=== PATIENT | male | born 1955 | race Caucasian/White ===

== ENCOUNTER → 2020-09-27 18:46 | Outpatient (BNVA) | payer MEDICARE, OTHER, SELFPAY | PROVIDERS: Family Provider Family Medicine; PCP Family Medicine; Visit Provider Family Medicine | DX: Z20.828 Contact with and (suspected) exposure to other viral communicable diseases (principal) | CPT/HCPCS: 87635 ==

== ENCOUNTER → 2021-02-12 11:06 | Outpatient (BNVA) | payer MEDICARE, OTHER, SELFPAY | PROVIDERS: Family Provider Family Medicine; PCP Family Medicine; Visit Provider Family Medicine | DX: Z20.822 Contact with and (suspected) exposure to COVID-19 (principal) | CPT/HCPCS: 87635 ==

== ENCOUNTER → 2021-05-10 12:56 | Outpatient (BNVA) | payer MEDICARE, SELFPAY | PROVIDERS: Family Provider Family Medicine; PCP Family Medicine; Visit Provider Surgery | DX: Z20.822 Contact with and (suspected) exposure to COVID-19 (principal) | CPT/HCPCS: 87635 ==

== ENCOUNTER 2021-05-16 05:48 | Day surgery (SDC) | payer MEDICARE, SELFPAY ==
[2021-05-14 15:28] VITALS: BMI 21.3
[2021-05-16 06:11] VITALS: BP 130/86; PULSE 105; RESP 18; TEMP 36.9; O2SAT 98
[2021-05-16] MEDS: sodium chloride 0.9% 1,000 ML 30 ML IV (06:22)
--- NOTE | 2021-05-16 06:41 | W.PM.OPSFHP ---
Same Day Surgery H&P Indication for Procedure/HPI DATE OF PROCEDURE: May 16, 2021 CHIEF COMPLAINT/INDICATIONFOR SURGICAL PROCEDURE: colonoscopy PREOP DIAGNOSIS: screening colonoscopy PLANNED PROCEDRUE: Operation Date: 05/16/21 07:00 Proposed Procedures p Colonoscopy(Not Applicable) - Daniel Herman MD Medications/Allergies* Home Medications Medication Instructions Recorded Confirmed Type hydrochlorothiazide 25 mg tablet 25 mg PO DAILY 07/11/20 05/14/21 History levothyroxine 150 mcg tablet 150 mcg PO DAILY 07/12/20 05/14/21 History lisinopril 5 mg tablet 10 mg PO DAILY tab 07/12/20 05/14/21 History meloxicam 15 mg tablet 15 mg PO DAILY 07/12/20 05/14/21 History Allergies/Adverse Reactions Allergy/AdvReac Type Severity Reaction Status Date / Time morphine AdvReac ADR-Vomitin Verified 04/10/21 09:31 g Current Medications: Generic Name Dose Route Start Last Admin Trade Name Freq PRN Reason Stop Dose Admin Sodium Chloride 1,000 mls @ 30 mls/hr 05/16/21 06:00 05/16/21 06:22 Sodium Chloride 0.9% IV 05/17/21 05:59 30 mls/hr .Q24H DARA Administration Pertinent History/Comorbid Conditions* Medical History (Updated 08/08/20 @ 17:27 by Daniel Herman MD) Diverticulosis Surgical History (Updated 07/15/20 @ 09:44 by Daniel Herman MD) H/O circumcision H/O colonoscopy 02/10/2018 Repeat in 10 yrs H/O release of tendon H/O rotator cuff surgery H/O shoulder replacement History of knee surgery History of nasal surgery Family History (Updated 07/12/20 @ 09:04 by Katelynn White LPN) CAD (coronary artery disease) Father Bleeding disorder Father Hypertension Father Mother Denies family history of Anesthesia complication Social History Smoking and tobacco status: never smoked Alcohol intake: never Household members: spouse Marital status: Current occupational status: employed History of recent travel: No Pertinent Exam Findings alert, oriented x 3 and regular rate & rhythm Recommendations Surgery/Procedure today Coding Level of Care Code Acute Playback Operator for Rc Dac[place]
--- NOTE | 2021-05-16 06:46 | ANES.PREANE2 ---
Pre-Anesthetic Assessment Pre-Anesthetic Assessment: Height/Weight: Height 1.96 m Weight 81.647 kg Temp Pulse Resp BP Pulse Ox 98.4 F 105 H 18 130/86 98 05/16/21 06:11 05/16/21 06:11 05/16/21 06:11 05/16/21 06:11 05/16/21 06:11 Preop Diagnosis: screening colonoscopy Proposed Procedure: Operation Date: 05/16/21 07:00 Proposed Procedures p Colonoscopy(Not Applicable) - Daniel Herman MD Familial anesthetic complications: none Was Beta Fabienne taken within 24 hours: N/A Was Clonidine taken within 24 hours: N/A Last intake: Intake Last Liquid Date 05/15/21 Last Liquid Time 23:30 Last Solid Date 05/14/21 Last Solid Time 19:00 Social: Social History: No alcohol and No tobacco Exam: Pre-Anes Outpt Exam: alert, oriented x 3, clear to auscultation bilaterally and regular rate & rhythm Airway: Submandibular: WNL Cervical ROM: WNL MP: 1 Dentition: Chipped (chipped molar) and Full History/ROS: Other Pulmonary: Pulmonary: None reported CV/HEM: CV/HEM: HTN : : None reported Hepatic: Hepatic: None reported GI: GI: GERD (OTC controls) Metabolic: Metabolic: Thyroid Musc/skel: Musc/skel: OA/DJD Comments: Lymes disease Neuropsych: Neuropsych: None reported Anesthetic Plan: ASA status: 2 Anesthesia: MAC Risk of > 500 ml blood loss (7ml/kg in children): No Meds/Allergies Current Medications: Current Medications Generic Name Dose Route Start Last Admin Trade Name Freq PRN Reason Stop Dose Admin Sodium Chloride 1,000 mls @ 30 ml s/hr 05/16/21 06:00 05/16/21 06:22 Sodium Chloride 0.9% IV 05/17/21 05:59 30 mls/hr .Q24H DARA Administration PFSH Anesthesia PFSH: Medical History Diverticulosis Surgical History (Updated 04/10/21 @ 09:33 by Wendy Campbell) H/O circumcision H/O colonoscopy 02/10/2018 Repeat in 10 yrs H/O release of tendon H/O rotator cuff surgery H/O shoulder replacement History of knee surgery History of nasal surgery Family History Father Bleeding disorder Hypertension CAD (coronary artery disease) Mother Hypertension Denies family history of Anesthesia complication Social History Smoking and tobacco status: never smoked Alcohol intake: never Household members: spouse Marital status: Current occupational status: employed History of recent travel: No Data Anesthesia Cardiac Studies: No Data to Display
[2021-05-16 07:24] VITALS: BP 123/89; PULSE 83; RESP 18; TEMP 36.3; O2SAT 100
--- NOTE | 2021-05-16 07:25 | ANE.PACU2 ---
Inpatient post-anesthesia follow up: Airway intact: Yes Vital signs: Temperature 98.4 F Pulse Rate 105 Respiratory Rate 18 Blood Pressure 130/86 Pulse Oximetry 98 Oxygen Delivery Me thod Room Air Oxygen Flow Rate Fraction of Inspir ed Oxygen Hydration adequate: Yes Nausea and vomiting: No Pain level: 1 Mental status: Baseline
[2021-05-16 07:41] VITALS: BP 136/90; PULSE 83; RESP 18; O2SAT 97
== END 2021-05-16 08:10 | disposition home or self-care (01) ==
PROVIDERS: PCP Family Medicine; Visit Provider Surgery
PROC: 0DJD8ZZ Inspection of Lower Intestinal Tract, Via Natural or Artificial Opening Endoscopic (ICD-10-PCS; CPT 45378; principal; 2021-05-16 07:00)
DX: Z12.11 Encounter for screening for malignant neoplasm of colon (principal); K52.9 Noninfective gastroenteritis and colitis, unspecified; K62.89 Other specified diseases of anus and rectum; K64.8 Other hemorrhoids; I10 Essential (primary) hypertension
CPT/HCPCS: 45380; 82274; 83630; 87493; 87506; 88305; 96360; 96361; J2704; J7030

== ENCOUNTER 2021-05-18 11:41 | Outpatient (CLI) | payer MEDICARE, SELFPAY ==
--- NOTE | 2021-05-18 11:56 | XR_ITS ---
WS: [id number] RIGHT WRIST: 2 VIEW(S) TECHNIQUE: PA and lateral. HISTORY: ARTHRITIS COMPARISON: None available. No acute fracture or dislocation. There is significant narrowing of the radiocarpal joint space. There is bone upon bone with sclerosis . Complete loss of the joint space. Widening of the scapholunate distance to 5.6 mm. Collapse of the capitate invaginating proximally. Subchondral cystic changes at the distal radius. Chondrocalcinosis distal to the ulna. Mild soft tiss ue edema surrounding the wrist. XR/XR wrist RT 2V [id number] IMPRESSION: 1. 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 2. Chronic tear scapholunate ligament with widening and proximal migration of the capitate into the scapholunate widening. 3. Chondrocalcinosis.
== END 2021-05-18 11:42 | disposition home or self-care (01) ==
PROVIDERS: PCP Family Medicine; Visit Provider Family Medicine
DX: M19.031 Primary osteoarthritis, right wrist (principal); S63.591A Other specified sprain of right wrist, initial encounter; X58.XXXA Exposure to other specified factors, initial encounter; M11.231 Other chondrocalcinosis, right wrist
CPT/HCPCS: 73100

== ENCOUNTER → 2021-06-08 14:09 | Outpatient (BNVA) | payer MEDICARE, SELFPAY | PROVIDERS: PCP Family Medicine; Visit Provider Nurse Practitioner Family | DX: Z20.822 Contact with and (suspected) exposure to COVID-19 (principal) | CPT/HCPCS: 87635 ==

== ENCOUNTER 2021-06-09 16:44 | Inpatient (IN) | payer MEDICARE, SELFPAY ==
[2021-06-09] VITALS (9 sets, daily range): BP systolic 89–137; BP diastolic 51–80; PULSE 96–119; RESP 15–28; TEMP 36.7–37.6; O2SAT 94–100; BMI 21.7
--- NOTE | 2021-06-09 03:22 | XRR_ITS ---
PROCEDURE INFORMATION: Exam: XR Chest Exam date and time: 06/09/2021 3:22 AM Age: 65 years old Clinical indication: Shortness of breath; Patient HX: SOB and coughing 1 month TECHNIQUE: Imaging protocol: XR of the chest. Views: 1 view. COMPARISON: No relevant prior studies available. FINDINGS: Lungs: Lungs are clear bilaterally. Pleural spaces: No pleural effusion. No pneumothorax. Heart/Mediastinum: The cardiac silhouette and mediastinal contours are unremarkable. Vasculature: Vascular calcifications in the aorta. Bones/joints: Patient has had a right shoulder hemiarthroplasty. Patient has had previous resection of the distal left clavicle. Multilevel degenerative changes of varying severity in the visualized spine. Mild degenerative changes at the left shoulder. XR/XR chest 1V portable [id number] IMPRESSION: 1. No acute cardiopulmonary process. 2. Incidental/nonacute findings are listed in the report.
[2021-06-09 17:58] LABS: Basophils # 0.1 10^3/uL (0.0-0.1); Basophils % 0.7 %; Eosinophils # 0.1 10^3/uL (0.0-0.8); Eosinophils % 0.9 %; Hematocrit 35.8 % (42.0-52.0); Hemoglobin 11.3 g/dL (11.7-16.6); Lymphocytes # 1.3 10^3/uL (0.8-4.8); Lymphocytes % 11.5 %; Mean Corpuscular HGB Conc 31.6 g/dL (30.0-36.0); Mean Corpuscular Hemoglobin 27.6 pg (28.0-34.0); Mean Corpuscular Volume 87.5 fl (80-94); Mean Platelet Volume 9.5 fL (7.4-10.4); Monocytes # 1.2 10^3/uL (0.2-0.9); Monocytes % 10.9 %; Neutrophils # 8.27 10^3/uL (1.8-7.7); Neutrophils % 75.1 %; Nucleated Red Blood Cells % 0 %; Platelet Count 375 10^3/cmm (130-400); Red Blood Count 4.09 10^6/uL (4.1-5.3); Red Cell Distribution Width 13.2 % (12.1-15.1)
[2021-06-09 17:58] LABS: Add Urine Microscopic? NO; Charge for UA Resulting for Rev
[2021-06-09 18:14] LABS: Alanine Aminotransferase 26 U/L (0-41); Albumin Level 2.9 g/dL (3.5-5.2); Alkaline Phosphatase 73 IU/L (40-130); Anion Gap 12.8 (5-19); Aspartate Amino Transferase 31 U/L (0-40); Blood Urea Nitrogen 18 mg/dL (8-23); Carbon Dioxide 29 mmol/L (22-29); Chloride 92 mmol/L (98-107); Globulin 3.5 g/dL (1.3-4.6); Glomerular Filtration Rate 96.7 mL/min (90-130); Glucose 94 mg/dL (65-115); Lipase 45 U/L (13-60); Osmolality Calculated 272 mOsm/kg (285-295); Potassium 3.8 mmol/L (3.5-5.1); Sodium 130 mmol/L (136-145); Total Bilirubin 0.6 mg/dL (0.15-1.2); Total Protein 6.4 g/dL (6.6-8.7)
[2021-06-09 18:16] LABS: Urine Color Yellow (Yellow)
[2021-06-09 18:17] LABS: Bilirubin Urine Neg (Negative); Blood Urine Neg (Negative); Glucose Urine UA Norm (Normal); Ketones Urine Negative (Negative); Leukocyte Esterase Urine Negative (Negative); Nitrate Urine Negative (Negative); Protein Urine Neg (Negative); Specific Gravity, Urine 1.005 (1.005-1.030); Sulfosalicylic Acid Urine Negative (Negative); Urine Appearance Clear (CLEAR); Urobilinogen Urine Norm (Negative); pH Urine 8 (5-7)
[2021-06-09 18:50] LABS: Lactate (Lactic Acid level) 1.9 mmol/L (0.5-2.2)
--- NOTE | 2021-06-09 18:55 | CTR_ITS ---
PROCEDURE INFORMATION: Exam: CT Abdomen And Pelvis With Contrast Exam date and time: 06/09/2021 6:55 PM Age: 65 years old Clinical indication: Abdominal pain; Generalized; Additional info: Colitis, abdominal pain TECHNIQUE: Imaging protocol: Computed tomography of the abdomen and pelvis with contrast. Sagittal and coronal reformatted images were created and reviewed. Radiation optimization: All CT scans at this facility use at least one of these dose optimization techniques: automated exposure control; mA and/or kV adjustment per patient size (includes targeted exams where dose is matched to clinical indication); or iterative reconstruction. Contrast material: OMNI 300; Contrast volume: 95 ml; Contrast route: INTRAVENOUS (IV); COMPARISON: No relevant prior studies available. RADIATION DOSE METRICS: Total DLP (mGy-cm): 1421.88 FINDINGS: Lungs: Visualized lungs are clear. Pleural spaces: No pleural effusion. Heart: Visualized portions of the heart are unremarkable. Liver: Multiple hypodense foci in the liver that cannot be further characterized on the current examination. The largest measures 1.2 x 2.1 cm (series 2, image 21). Gallbladder and bile ducts: Single gallstone in the gallbladder. No gallbladder wall thickening. No pericholecystic fluid. No biliary ductal dilatation. Pancreas: The pancreas is unremarkable. No pancreatic ductal dilatation. Spleen: The spleen is unremarkable. Adrenal glands: The right and left adrenal glands are unremarkable. Kidneys and ureters: Subcentimeter hypodense focus in the right kidney that is too small to characterize, however likely represents a small cyst. Parapelvic and cortical cysts in the left kidney. The largest measures 2.6 cm (series 2, image 32). The right and left ureters are unremarkable. Stomach and bowel: There is moderate to severe in wall thickening with surrounding inflammatory change and fluid of the pending colon and sigmoid colon. The stomach is collapsed, which can limit evaluation. No focal abnormality in the stomach otherwise. Nonspecific air-fluid levels present in the small bowel. Appendix: Appendix not definitely visualized. No inflammatory changes in the pericecal region however. Intraperitoneal space: No free intraperitoneal air. No ascites. No loculated fluid collections to suggest an abscess. Vasculature: Mild atherosclerotic changes in the visualized arteries. No evidence for aortic aneurysm or aortic dissection. Hepatic veins, portal veins, splenic vein, and SMV are patent. Lymph nodes: No lymphadenopathy. Urinary bladder: The bladder is incompletely filled, which can limit evaluation. No focal abnormality in the bladder however. Reproductive: The prostate gland is moderately enlarged. Bones/joints: Moderate degenerative changes at both the right and left hips. Bridging anterior osteophytes at the right and left sacroiliac joints, consistent with degenerative change. Multilevel degenerative changes of varying severity in the visualized spine. Multilevel foraminal stenosis of varying severity in the visualized spine. Mild spinal canal stenosis at L1-L2 through L5-S1. Soft tissues: Unremarkable. CT/CT abdomen pelvis w con* [id number] IMPRESSION: 1. Findings consistent with moderate to severe colitis in the to descending colon and sigmoid colon. 2. Multiple hypodense foci in the liver that cannot be further characterized on the current examination. Further evaluation with non-emergent liver MRI is recommended, if the patient has no contraindication to MRI. 3. Cholelithiasis. 4. Incidental/nonacute findings are listed in the report. COMMENTS: Consistent with the [employer]'s Incidental Findings Committee white paper (J Am Raffy Radiol 2018): Any incidental renal lesion less than 1 cm or classified as too small to characterize, or any incidental cystic renal lesion characterized as simple-appearing, is likely benign. No follow-up imaging is recommended for these lesions per consensus recommendations based on imaging criteria. Radiation Dose CTDIVOL = (mGy): DLP = 1421.88 (mGy-cm)
[2021-06-09] MEDS: sodium chloride 0.9% 1,000 ML 999 ML IV ×2 (19:39→22:16)
[2021-06-09] MEDS: iohexol 300 mg/mL 100 mL Btl IV (19:40)
--- NOTE | 2021-06-09 19:43 | W.ED.ABDPA2 ---
HPI - Abdominal Pain General: Chief Complaint: Abdominal Pain Stated Complaint: WEAK; DIZZY; PASSING BLOOD IN STOOL Time Seen by Provider: 06/09/21 18:54 History of Present Illness: HPI narrative: 65-year-old male with a couple week history of colitis. He had left lower quadrant tenderness, diarrhea, sometimes bloody. He had a recent colonoscopy showing colitis. His colitis is recently become worse, with worsening blood in the stool. He also notes some shortness of breath with some cough, and fevers/chills. He was tested yesterday at [facility], but results of the COVID-19 test is not known. MD elicited complaint: abdominal pain Pertinent past history: other Onset (ago): day(s) Pain Consistency: constant Location: LLQ Severity: moderate Quality: cramping and stabbing Radiation: none Migration to: no migration Exacerbating factors: bowel movement Relieving factors: nothing Associated Symptoms: Reports change in bowel habits, change in stool character, chills, GI cramping, hematochezia, loose stools, nausea and poor appetite; Denies coffee ground emesis, constipation, diarrhea, dysuria, heartburn and hematuria Review of Systems Const: Reports: chills ENMT: Reports: throat pain Card: Denies: chest pain or palpitations Resp: Reports: dyspnea and non-productive cough; Denies: wheezing GI: Reports: nausea, GI cramping, change in bowel habits, change in stool character and hematochezia; Denies: coffee ground emesis, heartburn, diarrhea or constipation : Denies: dysuria or hematuria [facility] PFSH: Medical History Diverticulosis Surgical History H/O circumcision H/O colonoscopy (05/16/21) 02/10/2018 H/O release of tendon H/O rotator cuff surgery H/O shoulder replacement History of knee replacement procedure of right knee 2010 History of nasal surgery Family History Father Bleeding disorder Hypertension CAD (coronary artery disease) Mother Hypertension Denies family history of Anesthesia complication Social History Alcohol intake: never Household members: spouse Marital status: Current occupational status: employed History of recent travel: No Physical Exam Const: GENERAL APPEARANCE: cooperative and ill appearing ORIENTATION/CONSCIOUSNESS: Yes oriented to person, Yes oriented to place and Yes oriented to time HENMT: COMMON NORMALS: normocephalic, external ears normal and Normal external nose present HEAD & SCALP: normocephalic FACE & SINUS: normal facial exam NOSE: Normal external nose present and No nasal discharge present EXTERNAL EAR: Yes external ears normal Eye: COMMON NORMALS: Equal, round and reactive pupils present, EOMs intact bilaterally and conjunctivae normal EYELID: eyelids normal CONJUNCTIVA: Yes conjunctivae normal PUPIL: Yes Equal, round and reactive pupils present Neck/C-Spine: GENERAL: No tracheal deviation Chest: COMMONS NORMALS: normal inspection of the chest CHEST: No tenderness Resp: COMMON NORMALS: clear to auscultation bilaterally EFFORT & INSPECTION: Yes tachypneic, No retractions, No uses accessory muscles and No tracheal deviation AUSCULTATION: clear to auscultation bilaterally, no rhonchi, no wheezes and lung sounds not diminished Cardio: COMMON NORMALS: regular rhythm RATE: tachycardic RHYTHM: regular rhythm HEART SOUNDS: no murmurs PERIPHERAL PULSES: radial pulses present GI: INSPECTION: Yes normal to inspection and No abdominal distension AUSCULTATION: No Hyperactive bowel sounds present and No Hypoactive bowel sounds present PALPATION: Yes Tenderness to palpation present (GI) Details: LLQ, Yes Guarding due to palpation present (GI) and No Rigid due to palpation PERCUSSION: no dullness to percussion and no tympanic to percussion : COMMON NORMALS: Yes no CVA tenderness BLADDER/KIDNEY EXAM: Yes no CVA tenderness Back/Pelvis: COMMON NORMALS: no CVA tenderness Neuro: SENSORIUM/ORIENTATION: Yes oriented to person, Yes oriented to place and Yes oriented to time Psych: COMMON NORMALS: mental status grossly normal Skin: COMMON NORMALS: no rashes or lesions noted GENERAL SKIN EXAM: no rashes or lesions noted Course Consultations: Consultation #1: marianne Time: 21:09 Vital Signs: Vital signs: Vital Signs Temperature 98.3 F 06/09/21 23:18 Pulse Rate 96 06/09/21 23:18 Respiratory Rate 20 H 06/09/21 23:18 Blood Pressure 110/70 06/09/21 23:18 Pulse Oximetry 96 06/09/21 23:18 MDM - Abdominal Pain MDM Narrative: Medical decision making narrative: 65-year-old male with a history of colitis. He presents with chills, shortness of breath, significant weakness and dizziness. His heart rates in the 130s on arrival. Pressures have been soft. After 2 L, his heart rate is down to 100-110. Blood pressure 104/64. It did, however, seem to 81/54 when getting up to the bedside. He still quite dry. He will be admitted for hydration and treatment of colitis. CT reveals significant colitis in the rectosigmoid area. No perforation. As the stool studies have been negative, this is assumed to be inflammatory as opposed to infectious. Lab Data: Labs: Lab Results 06/09/21 06/09/21 06/09/21 Range/Units 17:15 17:17 17:17 WBC 11.0 H (4.0-10.0) 10^3/ uL RBC 4.09 L (4.1-5.3) 10^6/u L Hgb 11.3 L (11.7-16.6) g/dL Hct 35.8 L (42.0-52.0) % MCV 87.5 (80-94) fl MCH 27.6 L (28.0-34.0) pg MCHC 31.6 (30.0-36.0) g/dL RDW 13.2 (12.1-15.1) % Plt Count 375 (130-400) 10^3/c mm MPV 9.5 (7.4-10.4) fL Neut % (Auto) 75.1 % Lymph % (Auto) 11.5 % [place] % (Auto) 10.9 % Eos % (Auto) 0.9 % Baso % (Auto) 0.7 % Neut # (Auto) 8.27 H (1.8-7.7) 10^3/u L Lymph # (Auto) 1.3 (0.8-4.8) 10^3/u L [place] # (Auto) 1.2 H (0.2-0.9) 10^3/u L Eos # (Auto) 0.1 (0.0-0.8) 10^3/u L Baso # (Auto) 0.1 (0.0-0.1) 10^3/u L Nucleated RBC % (a uto) 0 % Nucleated RBCs # 0.0 /100WBC ESR (0-10) mm/hr Sodium 130 L (136-145) mmol/L Potassium 3.8 (3.5-5.1) mmol/L Chloride 92 L (98-107) mmol/L Carbon Dioxide 29 (22-29) mmol/L Anion Gap 12.8 (5-19) BUN 18 (8-23) mg/dL Creatinine 0.8 (0.7-1.2) mg/dL GFR Calculation 96.7 (90-130) mL/min Glucose 94 (65-115) mg/dL Calculated Osmolal ity 272 L (285-295) mOsm/k g Lactate (0.5-2.2) mmol/L Calcium 8.0 L (8.5-10.5) mg/dL Total Bilirubin 0.6 (0.15-1.2) mg/dL AST 31 (0-40) U/L ALT 26 (0-41) U/L Alkaline Phosphata se 73 (40-130) IU/L C-Reactive Protein (0.0-4.9) mg/L Total Protein 6.4 L (6.6-8.7) g/dL Albumin 2.9 L (3.5-5.2) g/dL Globulin 3.5 (1.3-4.6) g/dL Lipase 45 (13-60) U/L Urine Color Yellow (Yellow) Urine Appearance Clear (CLEAR) Urine pH 8 H (5-7) Ur Specific Gravit y 1.005 (1.005-1.030) Urine Protein Neg (Negative) Urine Glucose (UA) Norm (Normal) Urine Ketones Negative (Negative) Urine Blood Neg (Negative) Urine Nitrate Negative (Negative) Urine Bilirubin Neg (Negative) Prot Sulfosalicyli c Acd Negative (Negative) Urine Urobilinogen Norm (Negative) mg/dL Ur Leukocyte Stefanie ase Negative (Negative) SARS-CoV-2 Ag (Rap id) (Negative) 06/09/21 06/09/21 06/09/21 Range/Units 17:17 17:17 17:17 WBC (4.0-10.0) 10^3/ uL RBC (4.1-5.3) 10^6/u L Hgb (11.7-16.6) g/dL Hct (42.0-52.0) % MCV (80-94) fl MCH (28.0-34.0) pg MCHC (30.0-36.0) g/dL RDW (12.1-15.1) % Plt Count (130-400) 10^3/c mm MPV (7.4-10.4) fL Neut % (Auto) % Lymph % (Auto) % [place] % (Auto) % Eos % (Auto) % Baso % (Auto) % Neut # (Auto) (1.8-7.7) 10^3/u L Lymph # (Auto) (0.8-4.8) 10^3/u L [place] # (Auto) (0.2-0.9) 10^3/u L Eos # (Auto) (0.0-0.8) 10^3/u L Baso # (Auto) (0.0-0.1) 10^3/u L Nucleated RBC % (a uto) % Nucleated RBCs # /100WBC ESR 58 H (0-10) mm/hr Sodium (136-145) mmol/L Potassium (3.5-5.1) mmol/L Chloride (98-107) mmol/L Carbon Dioxide (22-29) mmol/L Anion Gap (5-19) BUN (8-23) mg/dL Creatinine (0.7-1.2) mg/dL GFR Calculation (90-130) mL/min Glucose (65-115) mg/dL Calculated Osmolal ity (285-295) mOsm/k g Lactate 1.9 (0.5-2.2) mmol/L Calcium (8.5-10.5) mg/dL Total Bilirubin (0.15-1.2) mg/dL AST (0-40) U/L ALT (0-41) U/L Alkaline Phosphata se (40-130) IU/L C-Reactive Protein 111.9 H (0.0-4.9) mg/L Total Protein (6.6-8.7) g/dL Albumin (3.5-5.2) g/dL Globulin (1.3-4.6) g/dL Lipase (13-60) U/L Urine Color (Yellow) Urine Appearance (CLEAR) Urine pH (5-7) Ur Specific Gravit y (1.005-1.030) Urine Protein (Negative) Urine Glucose (UA) (Normal) Urine Ketones (Negative) Urine Blood (Negative) Urine Nitrate (Negative) Urine Bilirubin (Negative) Prot Sulfosalicyli c Acd (Negative) Urine Urobilinogen (Negative) mg/dL Ur Leukocyte Stefanie ase (Negative) SARS-CoV-2 Ag (Rap id) (Negative) 06/09/21 Range/Units 20:01 WBC (4.0-10.0) 10^3/ uL RBC (4.1-5.3) 10^6/u L Hgb (11.7-16.6) g/dL Hct (42.0-52.0) % MCV (80-94) fl MCH (28.0-34.0) pg MCHC (30.0-36.0) g/dL RDW (12.1-15.1) % Plt Count (130-400) 10^3/c mm MPV (7.4-10.4) fL Neut % (Auto) % Lymph % (Auto) % [place] % (Auto) % Eos % (Auto) % Baso % (Auto) % Neut # (Auto) (1.8-7.7) 10^3/u L Lymph # (Auto) (0.8-4.8) 10^3/u L [place] # (Auto) (0.2-0.9) 10^3/u L Eos # (Auto) (0.0-0.8) 10^3/u L Baso # (Auto) (0.0-0.1) 10^3/u L Nucleated RBC % (a uto) % Nucleated RBCs # /100WBC ESR (0-10) mm/hr Sodium (136-145) mmol/L Potassium (3.5-5.1) mmol/L Chloride (98-107) mmol/L Carbon Dioxide (22-29) mmol/L Anion Gap (5-19) BUN (8-23) mg/dL Creatinine (0.7-1.2) mg/dL GFR Calculation (90-130) mL/min Glucose (65-115) mg/dL Calculated Osmolal ity (285-295) mOsm/k g Lactate (0.5-2.2) mmol/L Calcium (8.5-10.5) mg/dL Total Bilirubin (0.15-1.2) mg/dL AST (0-40) U/L ALT (0-41) U/L Alkaline Phosphata se (40-130) IU/L C-Reactive Protein (0.0-4.9) mg/L Total Protein (6.6-8.7) g/dL Albumin (3.5-5.2) g/dL Globulin (1.3-4.6) g/dL Lipase (13-60) U/L Urine Color (Yellow) Urine Appearance (CLEAR) Urine pH (5-7) Ur Specific Gravit y (1.005-1.030) Urine Protein (Negative) Urine Glucose (UA) (Normal) Urine Ketones (Negative) Urine Blood (Negative) Urine Nitrate (Negative) Urine Bilirubin (Negative) Prot Sulfosalicyli c Acd (Negative) Urine Urobilinogen (Negative) mg/dL Ur Leukocyte Stefanie ase (Negative) SARS-CoV-2 Ag (Rap id) Negative (Negative) Discharge Plan Discharge Patient Disposition: Admitted As Inpatient Admit Provider: Malu Mccormick Clinical Impression: Proctosigmoiditis, Acute dehydration Condition: Fair Coding Level of Care Code ED Forest Technician for Chg Fwd Exam Comprehensive
--- NOTE | 2021-06-09 20:43 | PC.NURSE ---
updated on patient status
[2021-06-09 20:52] LABS: SARS Covid-2 Antigen Negative (Negative)
[2021-06-09 23:49] LABS: C Reactive Protein 111.9 mg/L (0.0-4.9)
[2021-06-10] MEDS: dextrose 5%-sod chloride 0.9% 1,000 ML 100 ML IV ×3 (00:13→22:40)
[2021-06-10 00:32] LABS: Erythrocyte Sedimentation Rate 58 mm/hr (0-10)
[2021-06-10 03:45] VITALS: BP 111/61; PULSE 75; RESP 17; TEMP 36.8; O2SAT 99
--- NOTE | 2021-06-10 06:17 | P.HP_ITS ---
Providers/Chief Complaint Admitting Physician: Malu Mccormick MD Primary Care Provider: Robinson Amaya MD Chief Complaint: WEAK; DIZZY; PASSING BLOOD IN STOOL History of Present Illness Mauri Kunz is a 65 year old male with a history of chronic recurrent diarrhea with bloody stools dating back to at least 1 year. Patient reports that usually his diarrhea frequency can range between 3-6 bowel movements per day. Stool is also associated with urgency. Blood in stools is often noted. Bowel movement associated with tenesmus. Weight loss of about 45 pounds over the past year since onset of symptoms. Patient was recently evaluated as an outpatient by Dr. Herman from general surgery for the above complaints, underwent a colonoscopy which showed evidence of proctocolitis. Pathology was consistent with colitis, crypt abscesses. Overall with concern for inflammatory bowel disease. A short course of steroids had temporarily relieved his symptoms. Infectious work-up has remained negative thus far. Tonight patient was being visited by his friends, 1 of home is a nurse practitioner,. Patient was noted to be extremely dehydrated and hypotensive with systolic blood pressures in the 80s and was brought to the emergency room. Since arrival here patient has had 5 bowel movements. Reports that today the stools are more black than usual. Review of Systems General: Reports: 10 or more systems reviewed and unremarkable except in HPI and below Const: Denies: fever(s), chills or body aches Eyes: Denies: change in vision, blurry vision or photophobia ENMT: Reports: hoarseness; Denies: throat pain, enlarged tonsils, odynophagia or nasal congestion Card: Denies: chest pain, palpitations, irregular heart rhythm, edema, swelling of feet/ankles, lightheadedness, pre-syncope, dyspnea on exertion or orthopnea Resp: Denies: dyspnea, productive cough, non-productive cough, wheezing, stridor, pain on inspiration, change in phlegm color, hemoptysis or chest congestion GI: Denies: abdominal pain, nausea, vomiting, hematemesis, coffee ground emesis, dysphagia, heartburn, diarrhea, constipation, GI cramping, change in stool character, hematochezia or melena : Denies: flank pain, dysuria, urinary frequency, urinary urgency, urinary hesitancy or hematuria Musc: Denies: neck pain, back pain, extremity pain, joint swelling, joint warmth or deformity Neuro: Denies: headache(s), numbness in extremities, weakness in extremities, sensory changes, difficulty walking, frequent falls, dizziness, vertigo, behavioral changes, Slurred speech present or seizure-like activity Psych: Denies: anxiety, depression, suicidal ideation or homicidal ideation Endo: Denies: polyuria, polydipsia, tired all the time, cold intolerance or hot flashes Rodrigo/Lymph: Denies: easy bruising or easy bleeding Medications/Allergies Home Medications Medication Instructions Recorded Confirmed Last Taken Type hydrochlorothiazide 25 mg tablet 25 mg PO DAILY 07/11/20 06/08/21 05/15/21 History levothyroxine 150 mcg tablet 150 mcg PO DAILY 07/12/20 06/08/21 05/15/21 History lisinopril 5 mg tablet 10 mg PO DAILY tab 07/12/20 06/08/21 05/15/21 History meloxicam 15 mg tablet 15 mg PO DAILY 07/12/20 06/08/21 05/15/21 History mesalamine 4 gram/60 mL enema 4 g ME DAILY 14 Days #840 ml 06/01/21 06/08/21 Unknown Rx Allergies Allergy/AdvReac Type Severity Reaction Status Date / Time morphine AdvReac ADR-Vomitin Verified 06/08/21 13:22 g PFSH Acute PFSH: Medical History Diverticulosis Surgical History H/O circumcision H/O colonoscopy (05/16/21) 02/10/2018 H/O release of tendon H/O rotator cuff surgery H/O shoulder replacement History of knee replacement procedure of right knee 2010 History of nasal surgery Family History Father Bleeding disorder Hypertension CAD (coronary artery disease) Mother Hypertension Denies family history of Anesthesia complication Social History Alcohol intake: never Household members: spouse Marital status: Current occupational status: employed History of recent travel: No Vitals/I&O/Wt Last Vital Signs Temp 98.3 F 06/10/21 03:45 Pulse 75 06/10/21 03:45 Resp 17 06/10/21 03:45 BP 111/61 06/10/21 03:45 Pulse Ox 99 06/10/21 03:45 06/09/21 06/09/21 06/10/21 14:59 22:59 06:59 Intake Total 1000 / 1000 1000 / 1999 Balance 1000 / 1000 1000 / 1999 Weight last 48 hrs Weight 80.739 kg Physical Exam Narrative: EXAM NARRATIVE: GENERAL: Awake, alert, oriented, in no acute distress. [] HEENT: Normocephalic, atraumatic, PERRLA. [] CHEST: Clear to auscultation bilaterally. [] CVS: S1, S2 normal. No murmur, rubs, gallops. Peripheral pulses palpable. [] ABDOMEN: Soft, nontender. Nondistended. Bowel sounds heard. [] NEUROVASCULAR: Awake, alert. Power 5/5 all extremities. DTR+ [] EXTREMITIES: No edema. [] Data : 06/09/21 17:17 06/09/21 17:17 Micro: Microbiology 06/09/21 21:18 C.difficile Toxin B Gene (PCR) - Final Stool Routine Collection Occult Blood (FIT) - Final 06/09/21 21:18 Stool Lactoferrin - Final Stool 06/09/21 17:17 Blood Culture - Preliminary Blood SPECIMEN COLLECTED 06/09/21 17:17 Blood Culture - Preliminary Blood SPECIMEN COLLECTED A&P Assessment and plan (1) Acute dehydration: Status: Acute (2) Proctosigmoiditis: Status: Acute (3) Inflammatory bowel disease: Status: Acute Additional A&P Information 65-year-old male with chronic ongoing diarrhea for the past year along with tenesmus presenting to the ER today for hypotension, acut dehydration likely as a result of volume losses from ongoing diarrhea. Recently had colonoscopy as outpatient with path report as noted above in HPI. Concern for possible underlying inflammatory bowel disease such as ulcerative colitis. N.p.o., bowel rest IV fluid hydration with D5 normal saline at 75 cc an hour. 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
[2021-06-10 06:31] LABS: Basophils # 0.1 10^3/uL (0.0-0.1); Basophils % 0.8 %; Eosinophils % 0.2 %; Hematocrit 35.4 % (42.0-52.0); Hemoglobin 11.4 g/dL (11.7-16.6); Lymphocytes # 0.6 10^3/uL (0.8-4.8); Lymphocytes % 9.2 %; Mean Corpuscular HGB Conc 32.2 g/dL (30.0-36.0); Mean Corpuscular Hemoglobin 27.7 pg (28.0-34.0); Mean Corpuscular Volume 85.9 fl (80-94); Mean Platelet Volume 9.4 fL (7.4-10.4); Monocytes # 0.3 10^3/uL (0.2-0.9); Monocytes % 4.1 %; Neutrophils # 5.31 10^3/uL (1.8-7.7); Neutrophils % 84.6 %; Nucleated Red Blood Cells % 0 %; Platelet Count 327 10^3/cmm (130-400); Positive M 1; Red Blood Count 4.12 10^6/uL (4.1-5.3); Red Cell Distribution Width 13.3 % (12.1-15.1); White Blood Count 6.3 10^3/uL (4.0-10.0)
[2021-06-10] MEDS: levothyroxine 150 mcg Tablet PO (07:37)
[2021-06-10] MEDS: pantoprazole DR 40 mg Tablet PO (07:37)
[2021-06-10 08:00] VITALS: BP 116/72; PULSE 77; RESP 16; TEMP 36.8; O2SAT 100
[2021-06-10 08:04] LABS: Alanine Aminotransferase 24 U/L (0-41); Alkaline Phosphatase 57 IU/L (40-130); Anion Gap 13.5 (5-19); Aspartate Amino Transferase 25 U/L (0-40); Blood Urea Nitrogen 13 mg/dL (8-23); Calcium 8.7 mg/dL (8.5-10.5); Carbon Dioxide 26 mmol/L (22-29); Chloride 96 mmol/L (98-107); Globulin 3.7 g/dL (1.3-4.6); Glomerular Filtration Rate 96.7 mL/min (90-130); Glucose 183 mg/dL (65-115); Osmolality Calculated 279 mOsm/kg (285-295); Potassium 3.5 mmol/L (3.5-5.1); Sodium 132 mmol/L (136-145); Total Bilirubin 0.7 mg/dL (0.15-1.2); Total Protein 6.7 g/dL (6.6-8.7)
[2021-06-10 08:18] LABS: Procalcitonin 0.45 ng/mL (0-0.5)
[2021-06-10 09:01] LABS: HIV 1 & 2 Antibody Non-Reactive (Non-Reactiv); HIV 1 & 2 Antigen Non-Reactive (Non-Reactiv)
[2021-06-10 09:03] LABS: Rapid Plasma Reagin Syphilis Nonreactive (Nonreactive)
[2021-06-10 12:00] VITALS: BP 119/76; PULSE 78; RESP 16; TEMP 36.6; O2SAT 97
[2021-06-10] MEDS: pneumococcal (23 valent) SDV 0.5 mL IM (12:23)
--- NOTE | 2021-06-10 14:07 | P.PN_ITS ---
Subjective Subjective: Interval history: He is doing little bit better. Denies abdominal pain currently. States that he gets uncomfortable, as well as tenesmus with any buildup of flatus. No chills or fever. No nausea or vomiting. States that he has been make arrangements with primary provider for him to follow-up with GI specialist in [place]. Vitals/I&O/Wt Last Vital Signs Temp 97.9 F 06/10/21 12:00 Pulse 78 06/10/21 12:00 Resp 16 06/10/21 12:00 BP 119/76 06/10/21 12:00 Pulse Ox 97 06/10/21 12:00 06/09/21 06/10/21 06/10/21 22:59 06:59 14:59 Intake Total 1000 / 1000 1000 / 2000 1000 / 1000 Output Total 550 / 550 Balance 1000 / 1000 450 / 1450 1000 / 1000 Weight last 48 hrs Weight 80.739 kg Physical Exam Const: COMMON NORMALS: no acute distress and patient oriented x3 HENMT: COMMON NORMALS: oropharynx normal Neck/C-Spine: COMMON NORMALS: no JVD Resp: COMMON NORMALS: normal respiratory effort and clear to auscultation bilaterally AUSCULTATION: clear to auscultation bilaterally Cardio: COMMON NORMALS: no JVD, regular rhythm, S1 normal heart sound present, S2 normal heart sound present and No murmurs present (Cardio) RHYTHM: regular rhythm HEART SOUNDS: S1 normal heart sound present and S2 normal heart sound present GI: COMMON NORMALS: Normal to inspection, nondistended, normoactive bowel sounds present, Soft to palpation and non-tender PALPATION: Yes Soft to palpation Extremity: COMMON NORMALS: no joint enlargement and no pedal edema Neuro: COMMON NORMALS: patient oriented x3 and moves all extremities Skin: COMMON NORMALS: no rashes or lesions noted GENERAL SKIN EXAM: no rashes or lesions noted Data : 06/10/21 06:05 06/10/21 06:05 Micro: Microbiology 06/09/21 21:18 C.difficile Toxin B Gene (PCR) - Final Stool Routine Collection Occult Blood (FIT) - Final 06/09/21 21:18 Stool Lactoferrin - Final Stool 06/09/21 17:17 Blood Culture - Preliminary Blood SPECIMEN COLLECTED 06/09/21 17:17 Blood Culture - Preliminary Blood SPECIMEN COLLECTED A&P Assessment and plan (1) Acute dehydration: Continue IV hydration. Status: Acute (2) Proctosigmoiditis: C. difficile negative. FOB positive. Lactoferrin positive. If continues to have no signs of infection, additionally requesting stool culture, ova parasite, although dissipate likely should be low of positive study, otherwise may be able to have some Imodium or other symptomatic treatment. ESR, CRP are elevated. Status: Acute (3) Inflammatory bowel disease: Initiated on steroid treatment, continue, additional work-up for infection as above, will need steroid taper and follow-up with GI specialist. Chronic inflammation noted on recent colonoscopy/biopsy. Status: Acute Attestations Medical Necessity Statement*: Continue admission for assessment management of colitis, inflammatory colitis, initiation of steroid treatment, monitoring off antibiotics, dehydration. 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
[2021-06-10 15:44] VITALS: BP 120/76; PULSE 69; RESP 16; TEMP 36.8; O2SAT 99
[2021-06-10 19:58] VITALS: BP 120/77; PULSE 72; RESP 18; TEMP 36.8; O2SAT 99
[2021-06-11] VITALS (7 sets, daily range): BP systolic 111–144; BP diastolic 67–82; PULSE 60–78; RESP 16–18; TEMP 36.4–37.1; O2SAT 97–99
[2021-06-11 06:32] LABS: Basophils # 0.1 10^3/uL (0.0-0.1); Basophils % 0.6 %; Hematocrit 32.6 % (42.0-52.0); Hemoglobin 10.5 g/dL (11.7-16.6); Lymphocytes # 0.7 10^3/uL (0.8-4.8); Lymphocytes % 5.6 %; Mean Corpuscular HGB Conc 32.2 g/dL (30.0-36.0); Mean Corpuscular Hemoglobin 28.2 pg (28.0-34.0); Mean Corpuscular Volume 87.4 fl (80-94); Mean Platelet Volume 9.6 fL (7.4-10.4); Monocytes # 0.8 10^3/uL (0.2-0.9); Neutrophils % 84.8 %; Nucleated Red Blood Cells % 0 %; Platelet Count 329 10^3/cmm (130-400); Red Blood Count 3.73 10^6/uL (4.1-5.3); Red Cell Distribution Width 13.3 % (12.1-15.1); White Blood Count 11.8 10^3/uL (4.0-10.0)
[2021-06-11 07:00] LABS: Anion Gap 13.5 (5-19); Blood Urea Nitrogen 15 mg/dL (8-23); Calcium 8.4 mg/dL (8.5-10.5); Carbon Dioxide 23 mmol/L (22-29); Chloride 100 mmol/L (98-107); Glomerular Filtration Rate 96.7 mL/min (90-130); Glucose 158 mg/dL (65-115); Osmolality Calculated 280 mOsm/kg (285-295); Potassium 3.5 mmol/L (3.5-5.1); Sodium 133 mmol/L (136-145)
[2021-06-11] MEDS: levothyroxine 150 mcg Tablet PO (08:00)
[2021-06-11] MEDS: pantoprazole DR 40 mg Tablet PO (08:00)
[2021-06-11] MEDS: dextrose 5%-sod chloride 0.9% 1,000 ML 100 ML IV ×2 (08:00→14:44)
[2021-06-11] MEDS: metroNIDAZOLE IV 250 MG in empty flexible container 1 EACH 100 MG IV (14:45)
[2021-06-11] MEDS: doxycycline 100 mg Tablet PO (18:26)
--- NOTE | 2021-06-11 20:00 | PM.PN ---
Subjective Subjective: Interval history: Still some hematochezia, diarrhea. No vomiting. Tolerating CLD. Wants to try to advance to something we will bit more substantial. Request to restart his doxycycline which he takes for chronic Lyme disease as per his discussions with PCP. Vitals/I&O/Wt Last Vital Signs Temp 97.6 F 06/11/21 15:30 Pulse 74 06/11/21 15:30 Resp 17 06/11/21 15:30 BP 132/82 06/11/21 15:30 Pulse Ox 97 06/11/21 15:30 06/11/21 06/11/21 06/11/21 06:59 14:59 22:59 Intake Total 120 / 2720 2653.333 / 2653.333 530 / 3183.333 Balance 120 / 2720 2653.333 / 2653.333 530 / 3183.333 Physical Exam Const: COMMON NORMALS: no acute distress and patient oriented x3 HENMT: COMMON NORMALS: oropharynx normal Neck/C-Spine: COMMON NORMALS: no JVD Resp: COMMON NORMALS: normal respiratory effort and clear to auscultation bilaterally AUSCULTATION: clear to auscultation bilaterally Cardio: COMMON NORMALS: no JVD, regular rhythm, S1 normal heart sound present, S2 normal heart sound present and No murmurs present (Cardio) RHYTHM: regular rhythm HEART SOUNDS: S1 normal heart sound present and S2 normal heart sound present GI: COMMON NORMALS: Normal to inspection, nondistended, normoactive bowel sounds present, Soft to palpation and non-tender PALPATION: Yes Soft to palpation Extremity: COMMON NORMALS: no joint enlargement and no pedal edema Neuro: COMMON NORMALS: patient oriented x3 and moves all extremities Skin: COMMON NORMALS: no rashes or lesions noted GENERAL SKIN EXAM: no rashes or lesions noted Data : 06/11/21 05:22 06/11/21 05:22 Micro: Microbiology 06/09/21 21:18 Parasite Antigen Panel - Final Stool Routine Collection 06/09/21 21:18 Enteric Pathogens (PCR) - Final Stool Routine Collection 06/09/21 17:17 Blood Culture - Preliminary Blood NEGATIVE TO DATE 06/09/21 17:17 Blood Culture - Preliminary Blood NEGATIVE TO DATE A&P Assessment and plan (1) Intestinal giardiasis: Start Flagyl. Stop steroids. Continue IV hydration. Discussed with him cannot entirely rule out possible underlying IBD. Still would like him to see GI. He also reports some symptoms of intermittent hand swelling. Not currently. Additional assessment as below. Possibility of reactive arthritis cannot be entirely excluded. Denies unpasteurized milk consumption. Drinks milk, but is pasteurized. Has several animals at home including cats and dogs. Draws water out of the well, but says it is filtered and gets state inspection monthly. Status: Acute (2) Acute dehydration: Continue IV hydration. Status: Acute (3) Proctosigmoiditis: As above. ESR, CRP elevated. As discussed with him cannot 100% exclude IBD, although seems less likely given we have a cause of his protracted diarrhea. He will be following up with GI. Status: Acute (4) Inflammatory bowel disease: Chronic inflammation noted on recent colonoscopy/biopsy. Status: Acute Additional A&P Information Possible reactive arthritis episodes: Swelling of R hand he states has been attributed to chronic Lyme disease after came back positive on tick panel and he states had received a course of doxycycline with subsequent improvement in symptoms. Recently again recurrence of the swelling right hand, although not currently. He insists would like to continue with doxycycline at this time. Discussed with him consideration of possible other causes. With finding that he does indeed have infectious cause of his chronic inflammation with giardiasis, possible reactive arthritis could be considered. Although this is not a common complication. Although with cause of his symptoms IBD probably less likely, but discussed with him cannot be 100% sure of no IBD. Will assess standing sacroiliac film. Attestations Medical Necessity Statement*: For assessment management of giardiasis, enterocolitis, hematochezia, chronic colonic inflammation. 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
[2021-06-11] MEDS: metroNIDAZOLE IV 250 MG in empty flexible container 1 EACH 50 MG IV (21:47)
[2021-06-12] VITALS: BP 130/75; PULSE 70; RESP 18; TEMP 36.7; O2SAT 97
[2021-06-12] MEDS: dextrose 5%-sod chloride 0.9% 1,000 ML 100 ML IV (03:26)
[2021-06-12 04:00] VITALS: BP 108/66; PULSE 65; RESP 18; TEMP 36.8; O2SAT 98
[2021-06-12 05:08] LABS: Basophils % 0.3 %; Eosinophils % 0.3 %; Hematocrit 31.7 % (42.0-52.0); Hemoglobin 9.9 g/dL (11.7-16.6); Lymphocytes # 1.1 10^3/uL (0.8-4.8); Lymphocytes % 14.4 %; Mean Corpuscular HGB Conc 31.2 g/dL (30.0-36.0); Mean Corpuscular Hemoglobin 27.8 pg (28.0-34.0); Mean Platelet Volume 9.1 fL (7.4-10.4); Monocytes # 0.8 10^3/uL (0.2-0.9); Monocytes % 10.5 %; Neutrophils # 5.65 10^3/uL (1.8-7.7); Neutrophils % 72.1 %; Nucleated Red Blood Cells % 0 %; Platelet Count 327 10^3/cmm (130-400); Red Blood Count 3.56 10^6/uL (4.1-5.3); Red Cell Distribution Width 13.2 % (12.1-15.1); White Blood Count 7.8 10^3/uL (4.0-10.0)
[2021-06-12 05:30] LABS: Anion Gap 8.6 (5-19); Blood Urea Nitrogen 16 mg/dL (8-23); Calcium 7.9 mg/dL (8.5-10.5); Carbon Dioxide 29 mmol/L (22-29); Chloride 105 mmol/L (98-107); Glomerular Filtration Rate 96.7 mL/min (90-130); Glucose 90 mg/dL (65-115); Osmolality Calculated 289 mOsm/kg (285-295); Potassium 3.6 mmol/L (3.5-5.1); Sodium 139 mmol/L (136-145)
[2021-06-12] MEDS: metroNIDAZOLE IV 250 MG in empty flexible container 1 EACH 50 MG IV ×3 (06:04→23:43)
[2021-06-12 08:00] VITALS: BP 117/72; PULSE 56; RESP 28; TEMP 37.2; O2SAT 100
[2021-06-12] MEDS: pantoprazole DR 40 mg Tablet PO (10:09)
[2021-06-12] MEDS: levothyroxine 150 mcg Tablet PO (10:09)
[2021-06-12] MEDS: doxycycline 100 mg Tablet PO ×2 (10:09→17:37)
[2021-06-12 11:53] VITALS: BP 113/70; PULSE 83; RESP 16; TEMP 36.5; O2SAT 99
--- NOTE | 2021-06-12 14:06 | P.PN_ITS ---
Subjective Subjective: Interval history: He is still having hematochezia, but worse today than yesterday. Loose stool. No abdominal pain unless with tenesmus right before having to use the restroom. No vomiting. No chills or fever. Vitals/I&O/Wt Last Vital Signs Temp 97.7 F 06/12/21 11:53 Pulse 83 06/12/21 11:53 Resp 16 06/12/21 11:53 BP 113/70 06/12/21 11:53 Pulse Ox 99 06/12/21 11:53 06/11/21 06/12/21 06/12/21 22:59 06:59 14:59 Intake Total 530 / 3183.333 1290 / 4473.333 2450 / 2450 Output Total 140 / 140 Balance 390 / 3043.333 1290 / 4333.333 2450 / 2450 Physical Exam Const: COMMON NORMALS: no acute distress and patient oriented x3 HENMT: COMMON NORMALS: oropharynx normal Neck/C-Spine: COMMON NORMALS: no JVD Resp: COMMON NORMALS: normal respiratory effort and clear to auscultation bilaterally AUSCULTATION: clear to auscultation bilaterally Cardio: COMMON NORMALS: no JVD, regular rhythm, S1 normal heart sound present, S2 normal heart sound present and No murmurs present (Cardio) RHYTHM: regular rhythm HEART SOUNDS: S1 normal heart sound present and S2 normal heart sound present GI: COMMON NORMALS: Normal to inspection, nondistended, normoactive bowel sounds present, Soft to palpation and non-tender PALPATION: Yes Soft to palpation Extremity: COMMON NORMALS: no joint enlargement and no pedal edema Neuro: COMMON NORMALS: patient oriented x3 and moves all extremities Skin: COMMON NORMALS: no rashes or lesions noted GENERAL SKIN EXAM: no rashes or lesions noted Data : 06/12/21 04:30 06/12/21 04:30 Micro: Microbiology 06/09/21 21:18 Parasite Antigen Panel - Final Stool Routine Collection 06/09/21 21:18 Enteric Pathogens (PCR) - Final Stool Routine Collection A&P Assessment and plan (1) Intestinal giardiasis: Some persistence of hematochezia, worse today. At this time we will continue Flagyl IV. Continue IV hydration. Monitor blood count given GI blood loss. Hemoglobin today down to 9.9. Today recalls that he was cleaning his barn from some raccoon droppings a while ago repeatedly when several different raccoons invaded and tried to nest in it. Discussed with him cannot entirely rule out possible underlying IBD. Still would like him to see GI. He also reports some symptoms of intermittent hand swelling. Not currently. Additional assessment as below. Possibility of reactive arthritis cannot be entirely excluded. No clear evidence of sacroiliitis on SI joint x-ray. Denies unpasteurized milk consumption. Drinks milk, but is pasteurized. Has several animals at home including cats and dogs. Draws water out of the well, but says it is filtered and gets state inspection monthly. Status: Acute (2) Acute dehydration: Continue IV hydration. Status: Acute (3) Proctosigmoiditis: As above. ESR, CRP elevated. As discussed with him cannot 100% exclude IBD, although seems less likely given we have a cause of his protracted diarrhea. He will be following up with GI. Status: Acute (4) Inflammatory bowel disease: Chronic inflammation noted on recent colonoscopy/biopsy. Status: Acute Additional A&P Information Possible reactive arthritis episodes: Swelling of R hand he states has been attributed to chronic Lyme disease after came back positive on tick panel and he states had received a course of doxycycline with subsequent improvement in symptoms. Recently again recurrence of the swelling right hand, although not currently. He insists would like to continue with doxycycline at this time. Discussed with him consideration of possible other causes. With finding that he does indeed have infectious cause of his chronic inflammation with giardiasis, possible reactive arthritis could be considered. Although this is not a common complication. Although with cause of his symptoms IBD probably less likely, but discussed with him cannot be 100% sure of no IBD. No clear evidence of sacroiliitis on SI joint x-ray. Attestations Medical Necessity Statement*: Continue admission for assessment management of enterocolitis with acute giardiasis, hematochezia, blood loss anemia and dehyd ration. 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
[2021-06-12] MEDS: lactated ringers 1,000 ML 75 ML IV (14:30)
[2021-06-12 15:54] VITALS: BP 115/72; PULSE 74; RESP 16; TEMP 37.2; O2SAT 97
[2021-06-12 20:00] VITALS: BP 131/83; PULSE 92; RESP 18; TEMP 37.5; O2SAT 98
--- NOTE | 2021-06-12 20:09 | XRR_ITS ---
PROCEDURE INFORMATION: Exam: XR Bilateral Sacroiliac Joints Exam date and time: 06/12/2021 8:09 PM Age: 65 years old Clinical indication: Patient HX: History--weak; Dizzy; Passing blood in stool. Possible ibd related arthritis? . ordered standing; Additional info: Possible ibd related arthritis? , Standing TECHNIQUE: Imaging protocol: XR Bilateral XR of the sacroiliac joints. Views: 3 or more views. COMPARISON: CT abdomen pelvis w con* [id number] 06/09/2021 7:37 PM FINDINGS: Bones/joints: No clear evidence of sacroiliitis. There is degenerative changes of the included lower lumbar spine, and mild degenerative changes of the hip joints. No acute fracture or dislocation. Soft tissues: Normal. XR/XR sacroiliac [facility] 3V [id number] IMPRESSION: No clear evidence of sacroiliitis.
[2021-06-12] MEDS: acetaminophen 325 mg Tablet 650 MG PO (20:47)
[2021-06-13] VITALS (7 sets, daily range): BP systolic 108–128; BP diastolic 65–78; PULSE 85–116; RESP 15–24; TEMP 36.8–37.9; O2SAT 96–99
[2021-06-13 03:19] LABS: Basophils % 0.4 %; Eosinophils % 0.5 %; Hematocrit 33.5 % (42.0-52.0); Hemoglobin 10.8 g/dL (11.7-16.6); Lymphocytes % 11.8 %; Mean Corpuscular HGB Conc 32.2 g/dL (30.0-36.0); Mean Corpuscular Hemoglobin 28.3 pg (28.0-34.0); Mean Corpuscular Volume 87.7 fl (80-94); Mean Platelet Volume 9.3 fL (7.4-10.4); Monocytes # 0.8 10^3/uL (0.2-0.9); Monocytes % 9.5 %; Neutrophils # 6.16 10^3/uL (1.8-7.7); Neutrophils % 75.1 %; Nucleated Red Blood Cells % 0 %; Platelet Count 343 10^3/cmm (130-400); Red Blood Count 3.82 10^6/uL (4.1-5.3); Red Cell Distribution Width 13.4 % (12.1-15.1); White Blood Count 8.2 10^3/uL (4.0-10.0)
[2021-06-13 03:43] LABS: Anion Gap 11.8 (5-19); Blood Urea Nitrogen 12 mg/dL (8-23); Calcium 8.3 mg/dL (8.5-10.5); Carbon Dioxide 27 mmol/L (22-29); Chloride 105 mmol/L (98-107); Glomerular Filtration Rate 96.7 mL/min (90-130); Glucose 88 mg/dL (65-115); Osmolality Calculated 289 mOsm/kg (285-295); Potassium 3.8 mmol/L (3.5-5.1); Sodium 140 mmol/L (136-145)
[2021-06-13] MEDS: lactated ringers 1,000 ML 75 ML IV (04:42)
[2021-06-13] MEDS: metroNIDAZOLE IV 250 MG in empty flexible container 1 EACH 50 MG IV ×3 (05:40→22:00)
[2021-06-13] MEDS: pantoprazole DR 40 mg Tablet PO (09:41)
[2021-06-13] MEDS: levothyroxine 150 mcg Tablet PO (09:41)
[2021-06-13] MEDS: doxycycline 100 mg Tablet PO ×2 (09:41→18:14)
--- NOTE | 2021-06-13 11:37 | XR_ITS ---
WS: [id number] Portable AP upright chest, 06/13/2021 Clinical Data: sob Comparison: Multiple chest, 06/09/2021. Findings: No nodules, masses or effusions are seen. The heart is normal. The pulmonary vascularity is not increased. No pneumonia or pneumothorax is seen. The aortic arch and descending aorta shows mild tortuosity. The diaphragms are flattened. There is a right shoulder arthroplasty. XR/XR chest 1V portable [id number] Impression: Atherosclerosis and hyperinflation.
--- NOTE | 2021-06-13 12:01 | PM.PN ---
Subjective Subjective: Interval history: He is feeling worse. Overnight reported fever of 102.6. Chills. Received Tylenol. Continues to have hematochezia. Today also having some shortness of breath. Vitals/I&O/Wt Last Vital Signs Temp 98.3 F 06/13/21 12:00 Pulse 97 06/13/21 12:00 Resp 21 H 06/13/21 12:00 BP 128/78 06/13/21 12:00 Pulse Ox 99 06/13/21 12:00 06/12/21 06/13/21 06/13/21 22:59 06:59 14:59 Intake Total 1130 / 4580 1050 / 5630 290 / 290 Balance 1130 / 4580 1050 / 5630 290 / 290 Physical Exam Const: COMMON NORMALS: no acute distress and patient oriented x3 HENMT: COMMON NORMALS: oropharynx normal Neck/C-Spine: COMMON NORMALS: no JVD Resp: COMMON NORMALS: normal respiratory effort and clear to auscultation bilaterally AUSCULTATION: clear to auscultation bilaterally Cardio: COMMON NORMALS: no JVD, regular rhythm, S1 normal heart sound present, S2 normal heart sound present and No murmurs present (Cardio) RHYTHM: regular rhythm HEART SOUNDS: S1 normal heart sound present and S2 normal heart sound present GI: COMMON NORMALS: Normal to inspection, nondistended, normoactive bowel sounds present, Soft to palpation and non-tender PALPATION: Yes Soft to palpation Extremity: COMMON NORMALS: no joint enlargement and no pedal edema Neuro: COMMON NORMALS: patient oriented x3 and moves all extremities Skin: COMMON NORMALS: no rashes or lesions noted GENERAL SKIN EXAM: no rashes or lesions noted Data : 06/13/21 02:30 06/13/21 02:30 A&P Assessment and plan (1) Intestinal giardiasis: He has been feeling worse, having chills, last night spiked a fever 102.6. Persistent diarrhea, hematochezia which now is worse. He is asking to restart steroids. States that he started getting worse again after discontinuing the steroid. Discussed with him finding of present infection with Giardia. Discussed concern of immune suppression with steroids, worsening infection, additional complications with bowel perforation, peritonitis. Potentially life-threatening complications. Other steroid complications. We certainly cannot be 100% sure that he does not have underlying IBD in addition to the current Giardia infection, although coexistence of both would probably be less likely. Discussed with him concerned that Giardia symptoms may sometimes temporarily worsen with initiation of treatment due to release of antigens. We will additionally investigate with chest x-ray, UA. Stop IV fluids for now as he is taking some food by mouth. Avoid fluid overload. Covid negative. Discussed also with the lab, we are asking for confirmatory test to examine for Giardia cysts. In case Giardia resistant to Flagyl, may need to escalate therapy, however, I do not see that albendazole is available here. Will need to follow-up with GI. Recalls that he was cleaning his barn from some raccoon droppings a while ago repeatedly when several different raccoons invaded and tried to nest in it. He also reports some symptoms of intermittent hand swelling. Not currently. Additional assessment as below. Possibility of reactive arthritis cannot be entirely excluded. No clear evidence of sacroiliitis on SI joint x-ray. Denies unpasteurized milk consumption. Drinks milk, but is pasteurized. Has several animals at home including cats and dogs. Draws water out of the well, but says it is filtered and gets state inspection monthly. Status: Acute (2) Acute dehydration: Received IV hydration. Stop IVF. P.o. intake as tolerating. Status: Acute (3) Proctosigmoiditis: As above. ESR, CRP elevated. As discussed with him cannot 100% exclude IBD, although seems less likely given we have a cause of his protracted diarrhea. He will be following up with GI. Status: Acute (4) Inflammatory bowel disease: Chronic inflammation noted on recent colonoscopy/biopsy. Status: Acute Additional A&P Information Possible reactive arthritis episodes: Swelling of R hand he states has been attributed to chronic Lyme disease after came back positive on tick panel and he states had received a course of doxycycline with subsequent improvement in symptoms. Recently again recurrence of the swelling right hand, although not currently. He insists would like to continue with doxycycline at this time. Discussed with him consideration of possible other causes. With finding that he does indeed have infectious cause of his chronic inflammation with giardiasis, possible reactive arthritis could be considered. Although this is not a common complication. Although with cause of his symptoms IBD probably less likely, but discussed with him cannot be 100% sure of no IBD. No clear evidence of sacroiliitis on SI joint x-ray. Attestations Medical Necessity Statement*: Continue admission for assessment management of persistent enterocolitis, giardiasis, worsening symptoms, hematochezia, additional instigation secondary to fever, shortness of breath. Coding Level of Care Code Acute Attendance Secretary for [facility] Fw Diagnoses Intestinal giardiasis A07.1 Acute dehydration E86.0 Proctosigmoiditis K63.89 Inflammatory bowel disease K52.9
[2021-06-13 14:40] LABS: Add Urine Microscopic? NO; Charge for UA Resulting for Rev
[2021-06-13 14:51] LABS: Bilirubin Urine Neg (Negative); Blood Urine Neg (Negative); Glucose Urine UA Norm (Normal); Ketones Urine Negative (Negative); Leukocyte Esterase Urine Negative (Negative); Nitrate Urine Negative (Negative); Protein Urine Neg (Negative); Sulfosalicylic Acid Urine Negative (Negative); Urine Appearance Clear (CLEAR); Urine Color Yellow (Yellow); Urobilinogen Urine Neg (Negative); pH Urine 8 (5-7)
[2021-06-14 03:15] LABS: Basophils % 0.4 %; Eosinophils # 0.2 10^3/uL (0.0-0.8); Hematocrit 34.2 % (42.0-52.0); Hemoglobin 10.8 g/dL (11.7-16.6); Lymphocytes # 1.1 10^3/uL (0.8-4.8); Lymphocytes % 13.6 %; Mean Corpuscular HGB Conc 31.6 g/dL (30.0-36.0); Mean Corpuscular Hemoglobin 27.6 pg (28.0-34.0); Mean Corpuscular Volume 87.2 fl (80-94); Mean Platelet Volume 9.1 fL (7.4-10.4); Monocytes # 0.5 10^3/uL (0.2-0.9); Monocytes % 6.6 %; Neutrophils # 5.81 10^3/uL (1.8-7.7); Neutrophils % 73.6 %; Nucleated Red Blood Cells % 0 %; Platelet Count 353 10^3/cmm (130-400); Red Blood Count 3.92 10^6/uL (4.1-5.3); Red Cell Distribution Width 13.6 % (12.1-15.1); White Blood Count 7.9 10^3/uL (4.0-10.0)
[2021-06-14 03:43] LABS: Alanine Aminotransferase 21 U/L (0-41); Albumin Level 2.5 g/dL (3.5-5.2); Alkaline Phosphatase 48 IU/L (40-130); Anion Gap 9.6 (5-19); Aspartate Amino Transferase 15 U/L (0-40); Blood Urea Nitrogen 8 mg/dL (8-23); Calcium 7.9 mg/dL (8.5-10.5); Carbon Dioxide 29 mmol/L (22-29); Chloride 102 mmol/L (98-107); Creatinine Clr Calc Pharmacy 96.3549; Globulin 2.6 g/dL (1.3-4.6); Glomerular Filtration Rate 84.4 mL/min (90-130); Glucose 84 mg/dL (65-115); Osmolality Calculated 282 mOsm/kg (285-295); Potassium 3.6 mmol/L (3.5-5.1); Sodium 137 mmol/L (136-145); Total Bilirubin 0.3 mg/dL (0.15-1.2); Total Protein 5.1 g/dL (6.6-8.7)
[2021-06-14 04:00] VITALS: BP 114/72; PULSE 85; RESP 20; TEMP 37.1; O2SAT 97
[2021-06-14] MEDS: metroNIDAZOLE IV 250 MG in empty flexible container 1 EACH 50 MG IV ×2 (05:42→14:11)
--- NOTE | 2021-06-14 06:43 | PC.NURSE ---
Shift Note Frequent safety and comfort rounds continue. Orders and/or nursing care completed as indicated. Patient monitored for response to intervention and treatment(s). Education provided includes medications and activity, reportable signs and symptoms. Patient and/or veterans contact representative verbalized understanding of all teaching.
[2021-06-14 08:00] VITALS: BP 105/71; PULSE 100; RESP 14; TEMP 37.9; O2SAT 97
[2021-06-14] MEDS: pantoprazole DR 40 mg Tablet PO (09:11)
[2021-06-14] MEDS: doxycycline 100 mg Tablet PO ×2 (09:11→18:00)
[2021-06-14] MEDS: levothyroxine 150 mcg Tablet PO (09:11)
--- NOTE | 2021-06-14 11:22 | PC.SOCIAL ---
IMM Updated Page 2 of IMM updated with patient. Verbalized understanding and had no questions at this time. Initialed, timed and dated.
[2021-06-14 12:00] VITALS: BP 103/63; PULSE 87; RESP 18; TEMP 37.3; O2SAT 98
--- NOTE | 2021-06-14 12:38 | P.PN_ITS ---
Subjective Subjective: Interval history: He overall is doing better, but still having blood in stools. He states it is not quite as intensely red as it was before hospitalization, currently pink. Vitals/I&O/Wt Last Vital Signs Temp 100.3 F H 06/14/21 08:00 Pulse 100 06/14/21 08:00 Resp 14 06/14/21 08:00 BP 105/71 06/14/21 08:00 Pulse Ox 97 06/14/21 08:00 06/13/21 06/14/21 06/14/21 22:59 06:59 14:59 Intake Total 670 / 2427.5 170 / 2597.5 50 / 50 Balance 670 / 2427.5 170 / 2597.5 50 / 50 Physical Exam Const: COMMON NORMALS: no acute distress and patient oriented x3 HENMT: COMMON NORMALS: oropharynx normal Neck/C-Spine: COMMON NORMALS: no JVD Resp: COMMON NORMALS: normal respiratory effort and clear to auscultation bilaterally AUSCULTATION: clear to auscultation bilaterally Cardio: COMMON NORMALS: no JVD, regular rhythm, S1 normal heart sound present, S2 normal heart sound present and No murmurs present (Cardio) RHYTHM: regular rhythm HEART SOUNDS: S1 normal heart sound present and S2 normal heart sound present GI: COMMON NORMALS: Normal to inspection, nondistended, normoactive bowel sounds present, Soft to palpation and non-tender PALPATION: Yes Soft to palpation Extremity: COMMON NORMALS: no joint enlargement and no pedal edema Neuro: COMMON NORMALS: patient oriented x3 and moves all extremities Skin: COMMON NORMALS: no rashes or lesions noted GENERAL SKIN EXAM: no rashes or lesions noted Data : 06/14/21 02:08 06/14/21 02:08 Micro: Microbiology 06/13/21 14:31 C.difficile Toxin B Gene (PCR) - Final Stool Routine Collection A&P Assessment and plan (1) Intestinal giardiasis: Continues having loose stools, hematochezia. Low-grade fevers, temperature 100.3 this morning. Continue Flagyl. Will be discussed today in case he is having resistant infection we are requesting addition of albendazole, this was requested through outpatient pharmacy. Requested confirmatory test with lumbar drain to see if we can visualize giardia cysts. Discussed with him there is still a chance that he could have underlying inflammatory bowel disease in addition to giardiasis, however, the likelihood of this again would be lower, and ruling out of infection is necessary for diagnosis of UC. Steroid therapy increases parasite load and may complicate the infection course. Still, we are requesting also ASCA, p-ANCA. We will recheck inflammatory markers. He has had some episodes of swelling of his right hand/wrist. SI joint on plain film without obvious sacroiliitis, however. NSAID induced colitis could be another possibility as well as he is on chronic meloxicam. This is currently held. Will need to follow-up with GI. With regards to where he may have gotten Giardia, recalls that he was cleaning his barn from some raccoon droppings a while ago repeatedly when several different raccoons invaded and tried to nest in it. Denies unpasteurized milk consumption. Drinks milk, but is pasteurized. Has several animals at home including cats and dogs. Draws water out of the well, but says it is filtered and gets state inspection monthly. Status: Acute (2) Acute dehydration: P.o. intake as tolerating. Status: Acute (3) Proctosigmoiditis: As above. Status: Acute (4) Inflammatory bowel disease: Chronic inflammation noted on recent colonoscopy/biopsy. Status: Acute Additional A&P Information Possible reactive arthritis episodes: Swelling of R hand he states has been attributed to chronic Lyme disease after came back positive on tick panel and he states had received a course of doxycycline with subsequent improvement in symptoms. Recently again recurrence of the swelling right hand, although not currently. He insists would like to continue with doxycycline at this time. Discussed with him consideration of possible other causes. With finding that he does indeed have infectious cause of his chronic inflammation with giardiasis, possible reactive arthritis could be considered. Although this is not a common complication. Although with cause of his symptoms IBD probably less likely, but discussed with him cannot be 100% sure of no IBD. No clear evidence of sacroiliitis on SI joint x-ray. Attestations Medical Necessity Statement*: Continue admission for assessment of management of enterocolitis, giardiasis, hematochezia. Coding Level of Care Code Acute Service Technician Copier for [facility] Fwd Exam Comprehensive Diagnoses Intestinal giardiasis A07.1 Acute dehydration E86.0 Proctosigmoiditis K63.89 Inflammatory bowel disease K52.9
[2021-06-14 16:00] VITALS: BP 116/63; PULSE 80; RESP 20; TEMP 36.8; O2SAT 97
--- NOTE | 2021-06-14 16:02 | PC.NURSE ---
patient is adlib. he stated that he has went half a dozen times. a little each time he says.
[2021-06-14 17:22] LABS: Glucose Point of Care 127 mg/dL (70-110)
[2021-06-14 20:00] VITALS: BP 120/78; PULSE 101; RESP 18; TEMP 37.3; O2SAT 95
[2021-06-14] MEDS: metroNIDAZOLE 500 MG Tablet 250 MG PO (22:17)
[2021-06-15] VITALS: BP 100/69; PULSE 98; RESP 18; TEMP 37.3; O2SAT 98
[2021-06-15 03:30] LABS: Basophils % 0.4 %; Eosinophils # 0.2 10^3/uL (0.0-0.8); Eosinophils % 3.3 %; Hemoglobin 11.6 g/dL (11.7-16.6); Lymphocytes # 1.2 10^3/uL (0.8-4.8); Lymphocytes % 16.2 %; Mean Corpuscular HGB Conc 31.4 g/dL (30.0-36.0); Mean Corpuscular Hemoglobin 27.1 pg (28.0-34.0); Mean Corpuscular Volume 86.4 fl (80-94); Mean Platelet Volume 9.1 fL (7.4-10.4); Monocytes # 0.6 10^3/uL (0.2-0.9); Monocytes % 8.8 %; Neutrophils # 5.06 10^3/uL (1.8-7.7); Neutrophils % 69.5 %; Nucleated Red Blood Cells % 0 %; Platelet Count 370 10^3/cmm (130-400); Red Blood Count 4.28 10^6/uL (4.1-5.3); Red Cell Distribution Width 13.6 % (12.1-15.1); White Blood Count 7.3 10^3/uL (4.0-10.0)
[2021-06-15 04:00] VITALS: BP 116/72; PULSE 87; RESP 16; TEMP 36.8; O2SAT 98
[2021-06-15 04:12] LABS: Alanine Aminotransferase 25 U/L (0-41); Albumin Level 2.7 g/dL (3.5-5.2); Alkaline Phosphatase 59 IU/L (40-130); Anion Gap 13.9 (5-19); Aspartate Amino Transferase 24 U/L (0-40); Blood Urea Nitrogen 7 mg/dL (8-23); C Reactive Protein 19.2 mg/L (0.0-4.9); Calcium 8.5 mg/dL (8.5-10.5); Carbon Dioxide 27 mmol/L (22-29); Chloride 101 mmol/L (98-107); Creatinine Clr Calc Pharmacy 96.3549; Globulin 2.8 g/dL (1.3-4.6); Glomerular Filtration Rate 84.4 mL/min (90-130); Glucose 111 mg/dL (65-115); Osmolality Calculated 285 mOsm/kg (285-295); Potassium 3.9 mmol/L (3.5-5.1); Sodium 138 mmol/L (136-145); Total Bilirubin 0.4 mg/dL (0.15-1.2); Total Protein 5.5 g/dL (6.6-8.7)
[2021-06-15 04:44] LABS: Erythrocyte Sedimentation Rate 36 mm/hr (0-10)
[2021-06-15 08:00] VITALS: BP 119/80; PULSE 101; RESP 16; TEMP 36.5; O2SAT 96
[2021-06-15] MEDS: doxycycline 100 mg Tablet PO ×2 (08:22→17:36)
[2021-06-15] MEDS: levothyroxine 150 mcg Tablet PO (08:22)
[2021-06-15] MEDS: metroNIDAZOLE 500 MG Tablet 250 MG PO ×2 (08:22→15:30)
[2021-06-15] MEDS: pantoprazole DR 40 mg Tablet PO (08:22)
[2021-06-15 11:47] VITALS: BP 112/72; PULSE 77; RESP 16; TEMP 37.2; O2SAT 98
--- NOTE | 2021-06-15 15:28 | PC.CHAP ---
Pastoral Care Encounter/Spiritual Assessment Type of Contact [] Declined video game script writer visit [] Patient/Family/Request visit [] Outpatient visit [xx] Follow-up visit [] Physician referral [] Code/Alert [xx] Routine visit [] Staff referral [] Actively dying [] Patient sleeping [] Family support [] [] Out of room [] Palliative care [] [] Receiving care in room [] Pre-surgical visit [] Trauma [xx] Long length of stay [] ICU visit [] Other: Relational/Emotional Strength [xx] Patient feels connected with others/family/visitors/staff [] Distress [xx] Loneliness/isolation [] Abandonment Spirituality of Patient [xx] Person of [place] [xx] Attends Restorationist of their [place] [xx] Believes in Prayer [xx] Reads Bible or Anabaptism materials [] There are Spiritual issues to be addressed Biostatistics Director Interventions [xx] Prayer [xx] Active listening [xx] Non-anxious presence [] Spiritual/emotional support [] Crisis/trauma care [] Spiritual counseling [] Bereavement support [] Provided bereavement packet [xx] Provided Bible/devotional materials [] Provided toy/stuffed animal, coloring book to patient or family member [] Provided Communion [] Anointing/[place] [] Salvation [xx] Completed spiritual assessment [] Other: Impact on Illness or Injury [] Angry [] Fearful [] Anxious [] Often cries [] Exhaustion [] Unable to work [] Unable to attend uatsdin [] Unable to walk/stand [] Unable to read [] Unable to drive [] Unable to eat/drink [] Unable to sleep [xx] Unable to be with family [] Patient intubated [xx] Other: LONELY Summary Patient needed to talk. His is disabled and cannot visit him. Both his sons are grown, working and live hours away and cannot visit. Phone calls just aren't enough for him. Time spent with patient 45 minutes
[2021-06-15 16:00] VITALS: BP 123/72; PULSE 80; RESP 14; TEMP 36.9; O2SAT 96
--- NOTE | 2021-06-15 18:15 | PC.NURSE ---
Discharge Note Patient discharged to home via private vehicle accompanied by sister. Discharge instructions reviewed with patient and/or compliance representative dealer. Mobile pharmacy medications and/or prescriptions provided. Belongings/home medications returned.
[2021-06-15 18:16] VITALS: BP 123/72; PULSE 80; RESP 14; TEMP 36.9; O2SAT 96
--- NOTE | 2021-06-15 19:57 | PM.DCS ---
Discharge Providers Date of Admission: 06/09/21 21:16 Date of Discharge: June 15, 2021 Attending Provider at Admission: Malu Mccormick MD Attending Provider at Discharge: Joel Guan Primary Care Provider: Robinson Amaya MD Diagnoses at Discharge Discharge Diagnosis (1) Intestinal giardiasis: Status: Acute (2) Acute dehydration: Status: Acute (3) Proctosigmoiditis: Status: Acute (4) Inflammatory bowel disease: Status: Acute Reason for Visit Reason for Visit: WEAK; DIZZY; PASSING BLOOD IN STOOL Hospital Course Hospital Course 65-year-old gentleman with history of longstanding diarrhea, recurrent bloody stools, weight loss of 45 pounds, recurrent swelling of the right hand which he thought was related to Lyme's disease for which he has been receiving doxycycline, who had been evaluated by outpatient surgery with the complaints and underwent colonoscopy with finding of proctocolitis, with chronic inflammation noted on biopsy. Stool studies 05/16 showed elevated levels low for lactoferrin, blood, but negative C. difficile and bacterial and parasite panel. He presented to the hospital due to worsening symptoms, with generalized weakness, dehydration, hypotension, blood pressures in the 80s, multiple bowel movements a day, bloody stools, but also reported black stools at presentation. He was admitted for assessment management, with noted mild hyponatremia 130, with CT abdomen pelvis showing moderate to severe colitis in the descending colon and sigmoid colon. Incidentally noted multiple hypodense foci in the liver that could not be further characterized with recommendation for MRI. Incidentally noted cholelithiasis. Other incidental findings. Please see full report. With elevated CRP, ESR on presentation, with recent consideration of possible inflammatory bowel disease, he was initially placed on bowel rest, IV hydration for dehydration, and started on steroids with methylprednisolone, mesalamine for possible IBD flare. Showed some initial improvement, but with persistent diarrhea, additional stool studies were sent. Subsequently C. difficile again negative, enteric bacterial pathogens negative. However, parasite panel positive for Giardia lamblia DNA. He denied drinking unpasteurized milk. Has several pets at home dogs, cats. Does obtain his water from a well, but says he gets it inspected monthly. He did recall that a while back he was cleaning his barn multiple times of raccoon droppings which tried to nest within the barn. Steroids were discontinued. NSAIDs were discontinued as well due to consideration of possible NSAID induced colitis contributing to the picture. He was started on Flagyl. Continued on IV hydration. He had transient worsening of his symptoms, likely due to initiation of the antibiotic therapy. Head episodes of fever. Some initial persistence of bloody stools. Due to this therapy was also escalated to include addition of albendazole. However, last fever was yesterday morning 100.3. No further fever since 8 AM yesterday. Today he is feeling much better. Recheck inflammatory markers are significantly decreased. He will complete treatment regimen with Flagyl, albendazole. He is asked to avoid handling wild animal feces, consider getting his pets assessed to prevent reinfection. Continue assessing his well water. As per discussion with him we still cannot be sure that he does not additionally have concomitant underlying IBD. Colitis with with small intestine Giardia is possible but certainly less common. The timing is also rather protracted. Confirmatory test to identify cysts was requested. We did send for ANCA, ASCA, although these may take a while to come back. Please follow-up on results. He is encouraged to still pursue GI specialist evaluation as he was intending due to possibility of concomitant IBD. He had some recurrent R hand swelling which he attributed to Lyme's disease for which him and his primary provider have been treating him with doxycycline. Discussed with him that this would be probably less likely cause of his symptoms, although he preferred to complete doxycycline course as previously. Discussed with him consideration of reactive arthritis secondary to Giardia infection. Discussed with him in case of low possibility also of concomitant IBD, possible seronegative arthritis. Although we did check plain SI joint film which was not obviously suggestive of sacroiliitis. In case of recurrence of symptoms consideration may be given to referral to rheumatology for additional assessment. We asked him to discontinue Celebrex due to cardiovascular risks with increased risk of LA, stroke, as well as other risks with recent dehydration, risk of ARASH, and risk of NSAID induced colitis itself. Please avoid long-term NSAIDs. For now he is asked to also hold off on his HCTZ, lisinopril given his blood pressures have been at goal, as well as he is still having some ongoing diarrhea, to avoid dehydration, hypotension, kidney injury. Discussed with him that giardiasis sometimes can be accompanied by long-term less severe symptoms, some people may develop IBS. However in case of recurrence of fever, hematochezia, severe abdominal pain, he is to seek medical attention immediately. Please reassess him for any signs of malabsorption, vitamin/trace elements deficiency. As today he is feeling much better, he feels good about returning home with the treatment as above. He will slowly advance diet from full liquid as tolerated. He understands he can add protein shakes, nutritional supplements. He has had no further bloody bowel movements. He is tolerating liquids by mouth well. He is asked to continue low-cholesterol diet due to incidentally noted cholelithiasis. Please revisit this with him at follow-up as well. He is asked to follow-up with MRI imaging of the low-density foci in his liver incidentally noted on on CT abdomen pelvis. Please follow-up results. Physical Exam Const: COMMON NORMALS: no acute distress and patient oriented x3 HENMT: COMMON NORMALS: oropharynx normal Neck/C-Spine: COMMON NORMALS: no JVD Resp: COMMON NORMALS: normal respiratory effort and clear to auscultation bilaterally AUSCULTATION: clear to auscultation bilaterally Cardio: COMMON NORMALS: no JVD, regular rhythm, S1 normal heart sound present, S2 normal heart sound present and No murmurs present (Cardio) RHYTHM: regular rhythm HEART SOUNDS: S1 normal heart sound present and S2 normal heart sound present GI: COMMON NORMALS: Normal to inspection, nondistended, normoactive bowel sounds present, Soft to palpation and non-tender PALPATION: Yes Soft to palpation OTHER: Several bowel movements today, no blood. Extremity: COMMON NORMALS: no joint enlargement and no pedal edema Neuro: COMMON NORMALS: patient oriented x3 and moves all extremities Skin: COMMON NORMALS: no rashes or lesions noted GENERAL SKIN EXAM: no rashes or lesions noted Discharge Data Data Completed and Pending: Completed Studies During Hospitalization Category Date Time Status CT abdomen pelvis w con* [id number] Urge nt Cat Scan 06/09/21 18:55 Completed XR chest 1V natalie ble [id number] Routine Exams 06/13/21 11:37 Completed XR chest 1V natalie ble [id number] Stat Exams 06/09/21 03:22 Completed XR sacroiliac jts m 3V [id number] Routin e Exams 06/12/21 20:09 Completed Pending at discharge Category Date Time Status Anti-Neutrophil C ytoplasmic AB Rout ine Lab 06/14/21 19:52 Received Miscellaneous Ivonne t Routine Lab 06/14/21 19:52 Received OVA and Parasites , Conc and PE Rout ine Lab 06/10/21 14:10 Received Labs from last 24 hours 06/15/21 06/15/21 06/15/21 03:00 03:00 03:00 WBC 7.3 RBC 4.28 Hgb 11.6 L Hct 37.0 L MCV 86.4 MCH 27.1 L MCHC 31.4 RDW 13.6 Plt Count 370 MPV 9.1 Neut % (Auto) 69.5 Lymph % (Auto) 16.2 [place] % (Auto) 8.8 Eos % (Auto) 3.3 Baso % (Auto) 0.4 Neut # (Auto) 5.06 Lymph # (Auto) 1.2 [place] # (Auto) 0.6 Eos # (Auto) 0.2 Baso # (Auto) 0.0 Nucleated RBC % (a uto) 0 Nucleated RBCs # 0.0 ESR 36 H Sodium 138 Potassium 3.9 Chloride 101 Carbon Dioxide 27 Anion Gap 13.9 BUN 7 L Creatinine 0.9 GFR Calculation 84.4 L Glucose 111 Calculated Osmolal ity 285 Calcium 8.5 Total Bilirubin 0.4 AST 24 ALT 25 Alkaline Phosphata se 59 C-Reactive Protein 19.2 H Total Protein 5.5 L Albumin 2.7 L Globulin 2.8 Misc Test Referenc e Ref Test Comments 06/15/21 06/15/21 03:00 03:00 WBC RBC Hgb Hct MCV MCH MCHC RDW Plt Count MPV Neut % (Auto) Lymph % (Auto) [place] % (Auto) Eos % (Auto) Baso % (Auto) Neut # (Auto) Lymph # (Auto) [place] # (Auto) Eos # (Auto) Baso # (Auto) Nucleated RBC % (a uto) Nucleated RBCs # ESR Sodium Potassium Chloride Carbon Dioxide Anion Gap BUN Creatinine GFR Calculation Glucose Calculated Osmolal ity Calcium Total Bilirubin AST ALT Alkaline Phosphata se C-Reactive Protein Total Protein Albumin Globulin Misc Test Referenc e Pending Ref Test Comments Pending Vitals: Last Vital Signs Temp 98.4 F 06/15/21 18:16 Pulse 80 06/15/21 18:16 Resp 14 06/15/21 18:16 BP 123/72 06/15/21 18:16 Pulse Ox 96 06/15/21 18:16 Discharge Plan Discharge Patient Disposition: Home Condition: Stable Prescriptions: New albendazole 200 mg tablet 400 mg PO DAILY 5 Days Qty: 20 RF: 0 metronidazole 500 mg Tablet 250 mg PO TID Qty: 12 RF: 0 Non-Formulary Medication [Non-Formulary] 2 ea PO Q24H Qty: 8 RF: 0 Continued levothyroxine [Levoxyl] 150 mcg tablet 150 mcg PO DAILY RF: 0 doxycycline hyclate 100 mg capsule 100 mg PO BID RF: 0 Discontinued hydrochlorothiazide 25 mg tablet 25 mg PO DAILY RF: 0 meloxicam 15 mg tablet 15 mg PO DAILY RF: 0 lisinopril 10 mg tablet 10 mg PO DAILY RF: 0 Discharge Orders: Discharge Order (Routine); Ordered 06/15/21 Ordered By: Joel Guan Other Ambulatory Orders: MR abdomen wo/w con* [id number] (Routine) Timeframe: 4 Days Facility: [facility] - Location: Radiology [facility] Ordered By: Joel Guan Referrals: Robinson Amaya MD [Primary Care Provider] - 4-7 days (Please call Friday to schedule a follow up appointment.) Discharge Diet: Advance as tolerated, Low Cholesterol and Full LIquid Discharge Activity: Increase activity as tolerated Patient Instructions: Metronidazole (By mouth), Albendazole (By mouth), Cholelithiasis, Giardiasis - Adult, Giardiasis (GEN), Cholelithiasis (GEN) Activity Restrictions/Additional Instructions: Please follow-up with your primary doctor to reassess for continued improvement from Giardia infection and enterocolitis. Please note that residual long-term symptoms may be present in some patients develop irritable bowel syndrome that persists even after resolution of the acute infection. Please follow-up with MRI imaging of your liver for closer visualization of noted hypodense foci on CT scan which could not be explained by the imaging. Continue full liquid diet. Add supplements/protein shakes as tolerating. Advance diet gradually to more solid food as tolerating. In case you experience high fever, severe abdominal pain, blood in the stool, inability to take in food or drink, weakness/fatigue, or other concerning symptoms, please seek medical attention. Please note we have held your blood pressure medications for now including HCTZ, to prevent dehydration as well as lisinopril for now. Please monitor your blood pressures at home. Discussed with your primary doctor before resuming these medications. Please follow-up with gastroenterology with regards to concern whether inflammatory bowel disease may be present, although this seems less likely given finding of possible cause for the chronic inflammation, as well as improvement in inflammatory markers with antibiotic treatment. However, inflammatory bowel disease independent of the infection may not be present. Please discuss with your primary doctor referral to rheumatology in case of recurrence of swelling of your right hand. Please note reactive arthritis may sometimes be present with Giardia infection. This may be a different connective tissue disease, however. Please avoid meloxicam due to increased risks of cardiovascular disease, heart attack, stroke, in addition to other risks of kidney injury, hypertension, stomach inflammation, and other. Avoid long-term NSAID treatment if possible. Please note that NSAIDs can also cause colitis. Please exercise caution to prevent reinfection with the organism. Avoid exposure. Make sure to wash her hands not to contaminate anything you may eat or drink. Do not handle wild animal droppings. Consider getting your pets assessed with the vet for the infection, especially if they are showing any concerning symptoms. Continue assessments of your well water. Please discuss with your primary doctor regarding incidental finding of gallstones on CT at presentation. Maintain low-cholesterol diet. Discharge Attestations Time Spent in Discharge Care*: greater than 30 min Quality Metrics Clinical Quality Measures During this hospital stay, did patient experience: None Coding Level of Care Code Acute Chg FW GA note Diagnoses Intestinal giardiasis A07.1 Acute dehydration E86.0 Proctosigmoiditis K63.89 Inflammatory bowel disease K52.9
--- NOTE | 2021-06-19 12:26 | PC.SOCIAL ---
discharge follow up call made. Patient scheduled for follow up with his pcp. Patient is aware of date and time. patient continues to have diarrhea, but hasn't gotten any worse since being discharged. patient will address with pcp on at follow up appointment. Patient is having hand pain, due to history of lyme disease. instructed patient to ice and elevated, take tylenol for pain.
[2021-06-19 22:17] LABS: ANCA Interp Negative (Negative)
== END 2021-06-15 18:18 | disposition home or self-care (01) | DRG 372 ==
LOC: ER 21:21 → MEDSURG 22:01
PROVIDERS: Emergency Medicine; Admitting Provider Student in an Organized Health Care Education/Training Program; Emergency Provider Emergency Medicine; PCP Family Medicine; Visit Provider Internal Medicine
DX: A07.1 Giardiasis [lambliasis] (principal); K92.1 Melena; E87.1 Hypo-osmolality and hyponatremia; A69.20 Lyme disease, unspecified; K63.89 Other specified diseases of intestine; K58.0 Irritable bowel syndrome with diarrhea; E86.0 Dehydration; I95.9 Hypotension, unspecified; K80.20 Calculus of gallbladder without cholecystitis without obstruction; R93.2 Abnormal findings on diagnostic imaging of liver and biliary tract; D50.0 Iron deficiency anemia secondary to blood loss (chronic); Z87.39 Personal history of other diseases of the musculoskeletal system and connective tissue; Z87.19 Personal history of other diseases of the digestive system; Z96.651 Presence of right artificial knee joint; Z79.2 Long term (current) use of antibiotics; Z23 Encounter for immunization
CPT/HCPCS: 36415; 36416; 71045; 72202; 74177; 80048; 80053; 81003; 82274; 82962; 83516; 83605; 83630; 83690; 84145; 85025; 85651; 86140; 86592; 86671; 87040; 87177; 87209; 87426; 87493; 87506; 87635; 87806; 90471; 90732; 96361; 96374; 99285; J2920; J2930; J7030; Q9967; S0030

== ENCOUNTER 2021-07-09 08:04 | Outpatient (CLI) | payer MEDICARE, SELFPAY ==
--- NOTE | 2021-07-09 08:10 | MR_ITS ---
WS: [id number] INDICATION: Hepatic lesions on CT TECHNIQUE: MRI of the abdomen without and with gadolinium enhancement. Coronal 2-D fiesta. Axial T1 a nd T2 imaging. Dual Echo axial imaging. Axial T1 imaging. FINDINGS: MR of the abdomen without and with gadolinium enhancement. Comparison CT June 09, 2021 Diffuse fatty infiltration of the liver. Normal portal vein and splenic vein. Small T2 hyperintense l esions in both hepatic lobes compatible with small hepatic cysts. This corresponds to lesion seen on the recent CT. Cholelithiasis. Otherwise normal gallbladder. Normal common bile duct. Normal spleen. Small esophageal hiatal hernia. Normal renal parenchymal enhancement. No hydronephrosis. Left peripel jodi renal cysts. Fatty atrophy of the pancreas. No intrahepatic biliary duct dilatation. Additional tiny lower pole re nal cysts bilaterally. IMPRESSION 1. Multiple simple hepatic cysts involving both hepatic lobes correspond to the lesions in the prior CT. 2. Cholelithiasis. 3. No hydronephrosis in either kidney. Incidental simple renal cysts. 4. Normal caliber upper abdominal aorta. 5. Small esophageal hiatal hernia.
[2021-07-09] MEDS: gadobenate dimeglumine 20 mL vial IV (08:54)
== END 2021-07-09 08:05 | disposition home or self-care (01) ==
PROVIDERS: PCP Family Medicine; Visit Provider Internal Medicine
DX: R93.2 Abnormal findings on diagnostic imaging of liver and biliary tract (principal); A07.1 Giardiasis [lambliasis]; K76.89 Other specified diseases of liver; K80.20 Calculus of gallbladder without cholecystitis without obstruction; K44.9 Diaphragmatic hernia without obstruction or gangrene
CPT/HCPCS: 74183; A9577

== ENCOUNTER 2021-12-26 20:12 | Emergency (ER) | payer MEDICARE, SELFPAY ==
[2021-12-26 20:35] VITALS: BP 133/89; PULSE 95; RESP 22; O2SAT 100; BMI 22.3
--- NOTE | 2021-12-26 20:42 | CTR_ITS ---
PROCEDURE INFORMATION: Exam: CT Abdomen And Pelvis With Contrast Exam date and time: 12/26/2021 8:42 PM Age: 66 years old Clinical indication: Abdominal pain; Localized; Patient HX: C/O lower abd pain with diarrhea. ; Additional info: Eval for infection TECHNIQUE: Imaging protocol: Computed tomography of the abdomen and pelvis with contrast. Radiation optimization: All CT scans at this facility use at least one of these dose optimization techniques: automated exposure control; mA and/or kV adjustment per patient size (includes targeted exams where dose is matched to clinical indication); or iterative reconstruction. Contrast material: OMNI 300; Contrast volume: 95 ml; Contrast route: INTRAVENOUS (IV); COMPARISON: MR abdomen wo/w con* [id number] 07/09/2021 8:26 AM RADIATION DOSE METRICS: Total DLP (mGy-cm): 1366.45 FINDINGS: Lungs: The lung bases are clear. Liver: There are several small sub cm circumscribed right hepatic hypodensities which are most likely cysts. These are unchanged since last year. Gallbladder and bile ducts: The the gallbladder is distended to 10 cm and contains a few dependent calculi. No wall thickening or surrounding edema. No dilatation of the intrahepatic biliary tree or common duct. Pancreas: Normal. No ductal dilation. Spleen: The spleen is normal. Adrenal glands: Normal. No mass. Kidneys and ureters: Bilateral small subcentimeter renal cysts. Stomach and bowel: Distal colonic diverticula are not inflamed. Appendix: No evidence of appendicitis. Intraperitoneal space: No abscess, free fluid or free air. Vasculature: The abdominal aorta and IVC are unremarkable. Lymph nodes: No retroperitoneal adenopathy. Urinary bladder: See Reproductive finding. Reproductive: Mildly enlarged prostate elevates the base of the urinary bladder. Bones/joints: Multilevel chronic degenerative changes in the lumbar spine. Soft tissues: Unremarkable. CT/CT abdomen pelvis w con* [id number] IMPRESSION: 1. No acute abdominopelvic findings. 2. Mildly enlarged gallbladder without stones or biliary distention. 3. Mild distal colonic diverticulosis. COMMENTS: Consistent with the [employer]'s Incidental Findings Committee white paper (J Am Raffy Radiol 2018): Any incidental renal lesion less than 1 cm or classified as too small to characterize, or any incidental cystic renal lesion characterized as simple-appearing, is likely benign. No follow-up imaging is recommended for these lesions per consensus recommendations based on imaging criteria.
--- NOTE | 2021-12-26 21:02 | W.ED.ABDPA2 ---
HPI - Abdominal Pain General: Chief Complaint: Abdominal Pain Stated Complaint: Thinks his colon erupted\About to pass out Time Seen by Provider: 12/26/21 20:41 Source: patient Mode of arrival: ambulatory Limitations: no limitations History of Present Illness: Patient is a 66-year-old male with a history of ulcerative colitis here for concerns of upper abdominal pains starting earlier this morning. Patient states pain has progressively worsened since onset. Has had approximately 12 episodes of non-bloody emesis. Patient states he has had intermittent bloody diarrhea but states that this is not uncommon for him given his UC-he is reporting his bowel movements at baseline. Patient follows up with GI provider in [place]. He has not had any fevers. He has no urinary complaints-no flank pains. MD elicited complaint: abdominal pain Pertinent past history: other (Ulcerative colitis) Onset (ago): hour(s) Pain Consistency: constant Location: Epigastric, LUQ and RUQ Severity: severe Quality: stabbing and sharp Radiation: none Migration to: no migration Exacerbating factors: eating Relieving factors: nothing Associated Symptoms: Reports hematochezia (chronic intermittent-not worse than baseline), nausea and vomiting; Denies change in bowel habits, chills, dysuria, fever(s), hematuria and hematemesis Review of Systems Const: Denies: fever(s), chills, body aches, fatigue or malaise Card: Denies: chest pain Resp: Denies: dyspnea GI: Reports: abdominal pain, nausea, vomiting and hematochezia (chronic intermittent-not worse than baseline); Denies: hematemesis, change in bowel habits, pain on defecation or rectal pain : Denies: flank pain, difficulty urinating, dysuria or hematuria Musc: Denies: neck pain, back pain, extremity pain or joint pain Skin/Breast: Denies: rash Neuro: Denies: headache(s), numbness in extremities, weakness in extremities or sensory changes PFSH ED PFSH: Medical History Diverticulosis Proctosigmoiditis Surgical History H/O circumcision H/O colonoscopy (05/16/21) 02/10/2018 H/O release of tendon H/O rotator cuff surgery H/O shoulder replacement History of knee replacement procedure of right knee 2011 History of nasal surgery Family History Father Bleeding disorder Hypertension CAD (coronary artery disease) Mother Hypertension Denies family history of Anesthesia complication Social History Alcohol intake: never Household members: spouse Marital status: Current occupational status: employed History of recent travel: No Physical Exam Const: COMMON NORMALS: average body habitus, patient oriented x3, no limitations, healthy appearing, alert and well nourished GENERAL APPEARANCE: cooperative and in distress (appears uncomfortable and nauseous) ORIENTATION/CONSCIOUSNESS: Yes awake, Yes oriented to person, Yes oriented to place and Yes oriented to time Resp: COMMON NORMALS: normal respiratory effort and clear to auscultation bilaterally AUSCULTATION: clear to auscultation bilaterally Cardio: COMMON NORMALS: regular rate and regular rhythm RATE: regular rate RHYTHM: regular rhythm GI: COMMON NORMALS: No hepatosplenomegaly present and no masses INSPECTION: Yes normal to inspection AUSCULTATION: Yes normoactive bowel sounds PALPATION: Yes Tenderness to palpation present (GI) (throughout upper abdomen with moderate guarding present; lower abdomen soft) and Yes No hepatosplenomegaly present : COMMON NORMALS: Yes no CVA tenderness BLADDER/KIDNEY EXAM: Yes no CVA tenderness Back/Pelvis: COMMON NORMALS: no CVA tenderness Extremity: COMMON NORMALS: normal to inspection GENERAL: Yes normal exam except as noted Neuro: TUTU COMA SCALE: document GCS findings Tutu coma scale eye opening: Spontaneous [place] coma scale verbal response: Orientated [place] coma scale motor response: Obey commands [place] coma scale total score: 15 COMMON NORMALS: patient oriented x3, moves all extremities, no focal motor deficits and no sensory deficits noted SENSORIUM/ORIENTATION: Yes alert, Yes oriented to person, Yes oriented to place and Yes oriented to time Skin: COMMON NORMALS: no rashes or lesions noted GENERAL SKIN EXAM: no rashes or lesions noted Course Vital Signs: Vital signs: Vital Signs Pulse Rate 103 H 12/26/21 23:22 Respiratory Rate 18 12/26/21 23:22 Blood Pressure 130/86 12/27/21 00:45 Pulse Oximetry 94 12/27/21 00:45 MDM - Abdominal Pain Medical Decision Making Patient feeling much better after IV medications/fluids. He is no longer having any discomfort. He has not had any episodes of emesis while here. Patient is not running fevers. He has not had any changes to his bowel movements. Labs show a white count of 17.0-think this is most likely stress reaction from his multiple episodes of emesis prior to arrival. Lactate is normal. Chemistry panel shows an elevated BUN at 38 with a normal creatinine. Patient was given a liter of fluids here. Bilirubin is nonspecifically elevated at 1.7 with the remainder of his LFTs normal. Patient CT scan showing no acute abnormality. He does have a distended gallbladder but no edema or suggestion of cholecystitis. On repeat reexamination patient patient has absolutely no pain to his RUQ. Patient states he feels comfortable going home at this time. Strict return to ED precautions given regarding worsening abdominal pain, repetitive episodes of vomiting, changes to bowel movements, fevers, or any other concerns he may have. Lab Data : 12/26/21 22:20 12/26/21 22:20 Labs/Radiology: Radiology Impressions Abdomen/Pelvis CT 12/26/21 20:42 IMPRESSION: 1. No acute abdominopelvic findings. 2. Mildly enlarged gallbladder without stones or biliary distention. 3. Mild distal colonic diverticulosis. COMMENTS: Consistent with the [employer]'s Incidental Findings Committee white paper (J Am Raffy Radiol 2018): Any incidental renal lesion less than 1 cm or classified as too small to characterize, or any incidental cystic renal lesion characterized as simple-appearing, is likely benign. No follow-up imaging is recommended for these lesions per consensus recommendations based on imaging criteria. Laboratory Results WBC 17.0 10^3/uL (4.0-10.0) H 12/26/21 22:20 RBC 5.58 10^6/uL (4.1-5.3) H 12/26/21 22:20 Hgb 15.4 g/dL (11.7-16.6) 12/26/21 22:20 Hct 49.7 % (42.0-52.0) 12/26/21 22:20 MCV 89.1 fl (80-94) 12/26/21 22:20 MCH 27.6 pg (28.0-34.0) L 12/26/21 22:20 MCHC 31.0 g/dL (30.0-36.0) 12/26/21: RDW 15.2 % (12.1-15.1) H 12/26/21:20 Plt Count 290 10^3/cmm (130-400) 12/26/21 22:20 MPV 9.2 fL (7.4-10.4) 12/26/21 22:20 Neut % (Auto) 91.1 % 12/26/21: Lymph % (Auto) 2.3 % 12/26/21 22:20 [place] % (Auto) 5.2 % 12/26/21 22:20 Eos % (Auto) 0.6 % 12/26/21:20 Baso % (Auto) 0.4 % 12/26/21: Neut # (Auto) 15.50 10^3/uL (1.8-7.7) H 12/26/21:20 Lymph # (Auto) 0.4 10^3/uL (0.8-4.8) L 12/26/21 22:20 [place] # (Auto) 0.9 10^3/uL (0.2-0.9) 12/26/21 22:20 Eos # (Auto) 0.1 10^3/uL (0.0-0.8) 12/26/21:20 Baso # (Auto) 0.1 10^3/uL (0.0-0.1) 12/26/21:20 Nucleated RBC % (auto) 0 % 12/26/21: Nucleated RBCs # 0.0 /100WBC 12/26/21:20 PT 14.10 SECONDS (12.1-14.9) 12/26/21 22:20 INR 1.06 (0.8-1.2) 12/26/21:20 APTT 24.8 SECONDS (23.9-36.7) 12/26/21 22:20 Sodium 145 mmol/L (136-145) 12/26/21 22:20 Potassium 3.8 mmol/L (3.5-5.1) 12/26/21 22:20 Chloride 103 mmol/L (98-107) 12/26/21 22:20 Carbon Dioxide 29 mmol/L (22-29) 12/26/21 22:20 Anion Gap 16.8 (5-19) 12/26/21 22:20 BUN 38 mg/dL (8-23) H 12/26/21 22:20 Creatinine 1.0 mg/dL (0.7-1.2) 12/26/21 22:20 GFR Calculation 74.5 mL/min (90-130) L 12/26/21 22:20 Glucose 128 mg/dL (65-115) H 12/26/21 22:20 Calculated Osmolality 311 mOsm/kg (285-295) H 12/26/21 22:20 Lactate 1.9 mmol/L (0.5-2.2) 12/26/21 23:17 Calcium 9.8 mg/dL (8.5-10.5) 12/26/21 22:20 Total Bilirubin 1.7 mg/dL (0.15-1.2) H 12/26/21 22:20 AST 17 U/L (0-40) 12/26/21 22:20 ALT 18 U/L (0-41) 12/26/21 22:20 Alkaline Phosphatase 57 IU/L (40-130) 12/26/21 22:20 Total Protein 6.9 g/dL (6.6-8.7) 12/26/21 22:20 Albumin 4.6 g/dL (3.5-5.2) 12/26/21 22:20 Globulin 2.3 g/dL (1.3-4.6) 12/26/21 22:20 Lipase 21 U/L (13-60) 12/26/21 22:20 Discharge Plan Discharge Patient Disposition: Home Clinical Impression: Acute upper abdominal pain Condition: Stable Prescriptions: New Zofran 4 mg tablet 4 mg PO Q6H PRN (Reason: nausea and vomiting) Qty: 14 0RF No Action levothyroxine [Levoxyl] 150 mcg tablet 150 mcg PO DAILY 0RF mesalamine with cleansing wipe 4 gram/60 mL enema kit 4 g [place] DAILY 14 Days Qty: 14 0RF Rx Instructions: administer at bedtime doxycycline hyclate 100 mg capsule 100 mg PO BID 0RF metronidazole 500 mg Tablet 250 mg PO TID Qty: 12 0RF Non-Formulary Medication [Non-Formulary] 2 ea PO Q24H Qty: 8 0RF Discharge Orders: Discharge ED (Routine); Ordered 12/27/21 Ordered By: Liz Fuller Referrals: Robinson Amaya MD [Primary Care Provider] - Patient Instructions: Abdominal Pain (ED) Activity Restrictions/Additional Instructions: As we discussed you need to do a liquid diet over the next 24 to 48 hours and slowly advance as tolerated. You need to return to the emergency department for worsening or continued severe abdominal pains, repetitive episodes of vomiting, worsening diarrhea, fevers greater than 100.4, generally feeling unwell, or any other concerns you may have. Hope you begin to feel better soon. Coding Level of Care Code ED Director Of Instrumental Music for Chg Fwd Exam Comprehensive
[2021-12-26 21:41] VITALS: BP 151/90; PULSE 104; RESP 20; O2SAT 97
[2021-12-26 22:28] LABS: Basophils # 0.1 10^3/uL (0.0-0.1); Basophils % 0.4 %; Eosinophils # 0.1 10^3/uL (0.0-0.8); Eosinophils % 0.6 %; Hematocrit 49.7 % (42.0-52.0); Hemoglobin 15.4 g/dL (11.7-16.6); Lymphocytes # 0.4 10^3/uL (0.8-4.8); Lymphocytes % 2.3 %; Mean Corpuscular Hemoglobin 27.6 pg (28.0-34.0); Mean Corpuscular Volume 89.1 fl (80-94); Mean Platelet Volume 9.2 fL (7.4-10.4); Monocytes # 0.9 10^3/uL (0.2-0.9); Monocytes % 5.2 %; Neutrophils % 91.1 %; Nucleated Red Blood Cells % 0 %; Platelet Count 290 10^3/cmm (130-400); Red Blood Count 5.58 10^6/uL (4.1-5.3); Red Cell Distribution Width 15.2 % (12.1-15.1)
[2021-12-26] MEDS: iohexol 300 mg/mL 100 mL Btl IV (22:32)
[2021-12-26 22:40] LABS: INR 1.06 (0.8-1.2); Partial Thromboplastin Time 24.8 SECONDS (23.9-36.7)
[2021-12-26 22:50] LABS: Alanine Aminotransferase 18 U/L (0-41); Albumin Level 4.6 g/dL (3.5-5.2); Alkaline Phosphatase 57 IU/L (40-130); Anion Gap 16.8 (5-19); Aspartate Amino Transferase 17 U/L (0-40); Blood Urea Nitrogen 38 mg/dL (8-23); Calcium 9.8 mg/dL (8.5-10.5); Carbon Dioxide 29 mmol/L (22-29); Chloride 103 mmol/L (98-107); Globulin 2.3 g/dL (1.3-4.6); Glomerular Filtration Rate 74.5 mL/min (90-130); Glucose 128 mg/dL (65-115); Lipase 21 U/L (13-60); Osmolality Calculated 311 mOsm/kg (285-295); Potassium 3.8 mmol/L (3.5-5.1); Sodium 145 mmol/L (136-145); Total Bilirubin 1.7 mg/dL (0.15-1.2); Total Protein 6.9 g/dL (6.6-8.7)
[2021-12-26 22:51] VITALS: RESP 18; O2SAT 93
[2021-12-26] MEDS: HYDROmorphone 1 mg/mL INJ 1 mL IVP (22:51)
[2021-12-26] MEDS: ondansetron 2 mg/ML SDV 2 mL 4 MG IVP (22:51)
[2021-12-26] MEDS: sodium chloride 0.9% 1,000 ML 999 ML IV (22:52)
[2021-12-26 23:22] VITALS: BP 149/93; PULSE 103; RESP 18; O2SAT 94
[2021-12-27 00:05] LABS: Lactate (Lactic Acid level) 1.9 mmol/L (0.5-2.2)
[2021-12-27 00:45] VITALS: BP 130/86; O2SAT 94
[2021-12-27 01:12] VITALS: BP 130/86; PULSE 102; O2SAT 94
== END 2021-12-27 01:16 | disposition home or self-care (01) ==
PROVIDERS: Emergency Medicine; Emergency Provider Physician Assistant; PCP Family Medicine
DX: R10.10 Upper abdominal pain, unspecified (principal)
CPT/HCPCS: 74177; 80053; 83605; 83690; 85025; 85610; 85730; 87040; 96361; 96374; 96375; 99284; J1170; J2405; J7030; Q9967

== ENCOUNTER 2022-03-16 17:37 | Emergency (ER) | payer MEDICARE, SELFPAY ==
[2022-03-16 17:51] VITALS: BP 155/95; PULSE 75; RESP 16; TEMP 36.9; O2SAT 97; BMI 24.3
[2022-03-16 20:09] LABS: Basophils % 0.7 %; Eosinophils # 0.3 10^3/uL (0.0-0.8); Eosinophils % 4.9 %; Hematocrit 43.3 % (42.0-52.0); Hemoglobin 14.2 g/dL (11.7-16.6); Lymphocytes % 17.5 %; Mean Corpuscular HGB Conc 32.8 g/dL (30.0-36.0); Mean Corpuscular Volume 88.5 fl (80-94); Mean Platelet Volume 9.1 fL (7.4-10.4); Monocytes # 0.7 10^3/uL (0.2-0.9); Neutrophils # 3.55 10^3/uL (1.8-7.7); Neutrophils % 64.5 %; Nucleated Red Blood Cells % 0 %; Platelet Count 210 10^3/cmm (130-400); Red Blood Count 4.89 10^6/uL (4.1-5.3); Red Cell Distribution Width 13.2 % (12.1-15.1); White Blood Count 5.5 10^3/uL (4.0-10.0)
[2022-03-16 20:14] VITALS: BP 125/88; PULSE 65; RESP 18; O2SAT 94
[2022-03-16 20:28] LABS: Alanine Aminotransferase 17 U/L (0-41); Albumin Level 3.7 g/dL (3.5-5.2); Alkaline Phosphatase 49 IU/L (40-130); Anion Gap 10.4 (5-19); Aspartate Amino Transferase 17 U/L (0-40); Blood Urea Nitrogen 15 mg/dL (8-23); C Reactive Protein 5.7 mg/L (0.0-4.9); Calcium 8.9 mg/dL (8.5-10.5); Carbon Dioxide 31 mmol/L (22-29); Chloride 99 mmol/L (98-107); Globulin 2.5 g/dL (1.3-4.6); Glomerular Filtration Rate 96.4 mL/min (90-130); Glucose 86 mg/dL (65-115); Lipase 18 U/L (13-60); Osmolality Calculated 284 mOsm/kg (285-295); Potassium 3.4 mmol/L (3.5-5.1); Sodium 137 mmol/L (136-145); Total Bilirubin 0.9 mg/dL (0.15-1.2); Total Protein 6.2 g/dL (6.6-8.7)
[2022-03-16 20:31] LABS: Add Urine Culture? No; Add Urine Microscopic? YES; Bacteria Urine TRACE /hpf; Bilirubin Urine Neg (Negative); Blood Urine Neg (Negative); Glucose Urine UA Norm (Normal); Ketones Urine Negative (Negative); Leukocyte Esterase Urine Trace (Negative); Nitrate Urine Negative (Negative); Protein Urine Neg (Negative); RBC Urine 0-4 /hpf (0-2); Specific Gravity, Urine 1.005 (1.005-1.030); Squamous Epithelial Cell Urine 0-4 /hpf (0-5); Urine Appearance Clear (CLEAR); Urine Color Yellow (Yellow); Urobilinogen Urine Norm (Negative); pH Urine 7 (5-7)
--- NOTE | 2022-03-16 20:36 | CTR_ITS ---
PROCEDURE INFORMATION: Exam: CT Abdomen And Pelvis Without Contrast Exam date and time: 03/16/2022 8:52 PM Age: 66 years old Clinical indication: Abdominal pain; Localized; Left lower quadrant (llq); Additional info: Llq pain, HX uc TECHNIQUE: Imaging protocol: Computed tomography of the abdomen and pelvis without contrast. Radiation optimization: All CT scans at this facility use at least one of these dose optimization techniques: automated exposure control; mA and/or kV adjustment per patient size (includes targeted exams where dose is matched to clinical indication); or iterative reconstruction. COMPARISON: CT abdomen pelvis w con* [id number] 12/26/2021 10:34 PM RADIATION DOSE METRICS: Total DLP (mGy-cm): 1187.36 FINDINGS: Liver: Multiple hypodensities in the liver are too small to characterize but are most likely cysts. No follow-up imaging is recommended. Gallbladder and bile ducts: 1.0 cm calcified stone in the gallbladder. No visible wall thickening. The bile ducts are normal. Pancreas: Normal. No ductal dilation. Spleen: Normal. No splenomegaly. Adrenal glands: Normal. No mass. Kidneys and ureters: 1 mm nonobstructing right renal calculus. No ureteral calculus or hydronephrosis. The left kidney and collecting system are normal. Stomach and bowel: Diverticulosis of the distal colon. Suspected circumferential wall thickening in the sigmoid colon and rectum. The stomach and small bowel are unremarkable. No obstruction. Appendix: The appendix is not visualized. No secondary signs of appendicitis. Intraperitoneal space: Unremarkable. No free air. No significant fluid collection. Vasculature: Unremarkable. No abdominal aortic aneurysm. Lymph nodes: Unremarkable. No enlarged lymph nodes. Urinary bladder: The urinary bladder is partially decompressed with mild wall thickening measuring up to 6 mm. Reproductive: Vasectomy clips. Enlarged prostate. Bones/joints: Degenerative changes of the spine. No fracture. Soft tissues: Unremarkable. CT/CT abdomen pelvis wo con [id number] IMPRESSION: 1. Findings suspicious for infectious versus inflammatory sigmoid colitis and proctitis. 2. Cholelithiasis. 3. 1 mm right renal calculus. 4. Mild urinary bladder wall thickening may relate to nondistention. Mild cystitis is not excluded.
[2022-03-16] MEDS: ondansetron 2 mg/ML SDV 2 mL 4 MG IVP (21:08)
[2022-03-16] MEDS: fentaNYL 50 mcg/mL INJ 2mL IVP (21:08)
[2022-03-16] MEDS: metroNIDAZOLE IV 500 MG/100 ML PREMIX 100 MG IV (21:11)
[2022-03-16 22:45] VITALS: BP 136/89; PULSE 83; RESP 18; O2SAT 97
--- NOTE | 2022-03-17 17:33 | ED_ITS ---
HPI - Abdominal Pain General: Chief Complaint: Abdominal Pain Stated Complaint: Abd Pain in the left side Time Seen by Provider: 03/16/22 19:49 Source: patient History of Present Illness: 66-year-old male with a history of inflammatory bowel disease. He has been on steroids for quite some time, and a tapering dose. He has noticed an increase in abdominal pain, particularly in the left lower quadrant over the past day or so. No vomiting. He is passing some blood, but no clots no fever. MD elicited complaint: abdominal pain Pertinent past history: gastrointestinal bleeding and other Onset (ago): day(s) Pain Consistency: constant Location: LLQ Severity: moderate Quality: cramping, aching and fullness Radiation: none Migration to: no migration Exacerbating factors: bowel movement Associated Symptoms: Reports change in stool character, diarrhea, hematochezia, nausea and poor appetite; Denies anorexia, fever(s), hematuria, hematemesis and vomiting Review of Systems Const: Denies: fever(s) ENMT: Denies: throat pain Card: Denies: chest pain Resp: Denies: dyspnea GI: Reports: nausea, diarrhea, change in stool character and hematochezia; Denies: vomiting or hematemesis : Denies: hematuria PFSH ED PFSH: Medical History Diverticulosis Proctosigmoiditis Surgical History H/O circumcision H/O colonoscopy (05/16/21) 02/10/2018 H/O release of tendon H/O rotator cuff surgery H/O shoulder replacement History of knee replacement procedure of right knee 2011 History of nasal surgery Family History Father Bleeding disorder Hypertension CAD (coronary artery disease) Mother Hypertension Denies family history of Anesthesia complication Social History Alcohol intake: never Household members: spouse Marital status: Current occupational status: employed History of recent travel: No Physical Exam Const: GENERAL APPEARANCE: cooperative; not in distress and not frail appearing HENMT: COMMON NORMALS: normocephalic, atraumatic and Normal external nose present HEAD & SCALP: normocephalic and atraumatic NOSE: Normal external nose present Eye: COMMON NORMALS: Equal, round and reactive pupils present, EOMs intact bilaterally, conjunctivae normal and no scleral icterus CONJUNCTIVA: Yes conjunctivae normal PUPIL: Yes Equal, round and reactive pupils present Neck/C-Spine: GENERAL: Yes trachea midline Chest: CHEST: Yes Symmetrical chest wall rise Resp: COMMON NORMALS: normal respiratory effort, No retractions, No use of accessory muscles and clear to auscultation bilaterally AUSCULTATION: clear to auscultation bilaterally Cardio: COMMON NORMALS: regular rate and regular rhythm RATE: regular rate RHYTHM: regular rhythm GI: COMMON NORMALS: Soft to palpation INSPECTION: Yes normal to inspection PALPATION: Yes Soft to palpation and Yes Tenderness to palpation present (GI) Details: LLQ : COMMON NORMALS: Yes no CVA tenderness BLADDER/KIDNEY EXAM: Yes no CVA tenderness Back/Pelvis: COMMON NORMALS: no CVA tenderness Extremity: COMMON NORMALS: no pedal edema Neuro: NELL COMA SCALE: document GCS findings [place] coma scale eye opening: Spontaneous [place] coma scale verbal response: Orientated [place] coma scale motor response: Obey commands [place]kel[place] coma scale total score: 15 Psych: COMMON NORMALS: mental status grossly normal Course Vital Signs: Vital signs: Vital Signs Temperature 98.4 F 03/16/22 17:51 Pulse Rate 83 03/16/22 22:45 Respiratory Rate 18 03/16/22 22:45 Blood Pressure 136/89 03/16/22 22:45 Pulse Oximetry 97 03/16/22 22:45 MDM - Abdominal Pain Medical Decision Making Left lower quadrant pain, diarrhea, with blood, in a patient with inflammatory bowel disease. His CBC is normal. His BMP shows mild hyponatremia. His CRP is only 5.7. CT of the belly shows findings suspicious for infectious versus inflammatory sigmoid colitis and proctitis. He wishes to try treatment at home. His steroid dosage will be increased followed by tapering, coverage with antibiotics. He is not vomiting. Close outpatient follow-up with his specialist. Lab Data : 03/16/22 20:00 03/16/22 20:00 Labs/Radiology: Radiology Impressions Abdomen/Pelvis CT 03/16/22 20:36 IMPRESSION: 1. Findings suspicious for infectious versus inflammatory sigmoid colitis and proctitis. 2. Cholelithiasis. 3. 1 mm right renal calculus. 4. Mild urinary bladder wall thickening may relate to nondistention. Mild cystitis is not excluded. Laboratory Results WBC 5.5 10^3/uL (4.0-10.0) 03/16/22 20:00 RBC 4.89 10^6/uL (4.1-5.3) 03/16/22 20:00 Hgb 14.2 g/dL (11.7-16.6) 03/16/22 20:00 Hct 43.3 % (42.0-52.0) 03/16/22 20:00 MCV 88.5 fl (80-94) 03/16/22 20:00 MCH 29.0 pg (28.0-34.0) 03/16/22 20:00 MCHC 32.8 g/dL (30.0-36.0) 03/16/22 20:00 RDW 13.2 % (12.1-15.1) 03/16/22 20:00 Plt Count 210 10^3/cmm (130-400) 03/16/22 20:00 MPV 9.1 fL (7.4-10.4) 03/16/22 20:00 Neut % (Auto) 64.5 % 03/16/22 20:00 Lymph % (Auto) 17.5 % 03/16/22 20:00 [place] % (Auto) 12.0 % 03/16/22 20:00 Eos % (Auto) 4.9 % 03/16/22 20:00 Baso % (Auto) 0.7 % 03/16/22 20:00 Neut # (Auto) 3.55 10^3/uL (1.8-7.7) 03/16/22 20:00 Lymph # (Auto) 1.0 10^3/uL (0.8-4.8) 03/16/22 20:00 [place] # (Auto) 0.7 10^3/uL (0.2-0.9) 03/16/22 20:00 Eos # (Auto) 0.3 10^3/uL (0.0-0.8) 03/16/22 20:00 Baso # (Auto) 0.0 10^3/uL (0.0-0.1) 03/16/22 20:00 Nucleated RBC % (auto) 0 % 03/16/22 20:00 Nucleated RBCs # 0.0 /100WBC 03/16/22 20:00 Sodium 137 mmol/L (136-145) 03/16/22 20:00 Potassium 3.4 mmol/L (3.5-5.1) L 03/16/22 20:00 Chloride 99 mmol/L (98-107) 03/16/22 20:00 Carbon Dioxide 31 mmol/L (22-29) H 03/16/22 20:00 Anion Gap 10.4 (5-19) 03/16/22 20:00 BUN 15 mg/dL (8-23) 03/16/22 20:00 Creatinine 0.8 mg/dL (0.7-1.2) 03/16/22 20:00 GFR Calculation 96.4 mL/min (90-130) 03/16/22 20:00 Glucose 86 mg/dL (65-115) 03/16/22 20:00 Calculated Osmolality 284 mOsm/kg (285-295) L 03/16/22 20:00 Calcium 8.9 mg/dL (8.5-10.5) 03/16/22 20:00 Total Bilirubin 0.9 mg/dL (0.15-1.2) 03/16/22 20:00 AST 17 U/L (0-40) 03/16/22 20:00 ALT 17 U/L (0-41) 03/16/22 20:00 Alkaline Phosphatase 49 IU/L (40-130) 03/16/22 20:00 C-Reactive Protein 5.7 mg/L (0.0-4.9) H 03/16/22 20:00 Total Protein 6.2 g/dL (6.6-8.7) L 03/16/22 20:00 Albumin 3.7 g/dL (3.5-5.2) 03/16/22 20:00 Globulin 2.5 g/dL (1.3-4.6) 03/16/22 20:00 Lipase 18 U/L (13-60) 03/16/22 20:00 Urine Color Yellow (Yellow) 03/16/22 20:00 Urine Appearance Clear (CLEAR) 03/16/22 20:00 Urine pH 7 (5-7) 03/16/22 20:00 Ur Specific [place] 1.005 (1.005-1.030) 03/16/22 20:00 Urine Protein Neg (Negative) 03/16/22 20:00 Urine Glucose (UA) Norm (Normal) 03/16/22 20:00 Urine Ketones Negative (Negative) 03/16/22 20:00 Urine Blood Neg (Negative) 03/16/22 20:00 Urine Nitrate Negative (Negative) 03/16/22 20:00 Urine Bilirubin Neg (Negative) 03/16/22 20:00 Urine Urobilinogen Norm mg/dL (Negative) 03/16/22 20:00 Ur Leukocyte Esterase Trace (Negative) H 03/16/22 20:00 Urine RBC 0-4 /hpf (0-2) H 03/16/22 20:00 Urine WBC 5-10 /hpf (0-5) H 03/16/22 20:00 Ur Squamous Epith Cells 0-4 /hpf (0-5) H 03/16/22 20:00 Amorphous Sediment Not Reportable 03/16/22 20:00 Urine Bacteria Trace /hpf (NONE) 03/16/22 20:00 Discharge Plan Discharge Patient Disposition: Home Clinical Impression: Inflammatory bowel disease Condition: Stable Prescriptions: New metronidazole 500 mg tablet 500 mg PO Q8H 7 Days Qty: 21 0RF ciprofloxacin HCl 500 mg tablet 500 mg PO Q12H Qty: 14 0RF prednisone 10 mg tablet See Rx Instructions .ROUTE .COMPLEX Qty: 21 0RF Rx Instructions: 4 [id number], 2 [id number], 1 POqDayX3 days hydrocodone-acetaminophen 5-325 mg tablet 1 tab PO Q8H PRN (Reason: pain) Qty: 7 0RF ondansetron 4 mg film 4 mg PO DAILY PRN (Reason: nausea and vomiting) Qty: 10 0RF Discontinued metronidazole 500 mg Tablet 250 mg PO TID Qty: 12 0RF No Action levothyroxine [Levoxyl] 150 mcg tablet 150 mcg PO DAILY 0RF mesalamine with cleansing wipe 4 gram/60 mL enema kit 4 g [place] DAILY 14 Days Qty: 14 0RF Rx Instructions: administer at bedtime doxycycline hyclate 100 mg capsule 100 mg PO BID 0RF Non-Formulary Medication [Non-Formulary] 2 ea PO Q24H Qty: 8 0RF Zofran 4 mg tablet 4 mg PO Q6H PRN (Reason: nausea and vomiting) Qty: 14 0RF Discharge Orders: Discharge ED (Routine); Ordered 03/16/22 Ordered By: Francisco J Colindres Referrals: Robinson Amaya MD [Primary Care Provider] - 1-3 days Patient Instructions: Ulcerative Colitis (ED) Activity Restrictions/Additional Instructions: Return for fever greater than 100 despite 2-3 doses of antibiotics, worsening pain despite treatment, vomiting liquids or medications, worsening blood in the stools despite treatment, any other concerning symptoms. 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
== END 2022-03-16 22:45 | disposition home or self-care (01) ==
PROVIDERS: Emergency Medicine; Emergency Provider Emergency Medicine; PCP Family Medicine
DX: K52.3 Indeterminate colitis (principal); R11.0 Nausea
CPT/HCPCS: 74176; 80053; 81001; 83690; 85025; 86140; 96365; 96375; 99284; J2405; J2930; J3010; S0030

== ENCOUNTER → 2022-03-22 10:07 | Outpatient (BNVA) | payer MEDICARE, SELFPAY | PROVIDERS: PCP Family Medicine; Visit Provider Family Medicine | DX: R19.7 Diarrhea, unspecified (principal) | CPT/HCPCS: 87493; 87506 ==

== ENCOUNTER → 2022-09-26 09:26 | Outpatient (BNVA) | payer MEDICARE, SELFPAY | PROVIDERS: PCP Family Medicine; Visit Provider Orthopaedic Surgery | DX: M43.13 Spondylolisthesis, cervicothoracic region | CPT/HCPCS: 72050; 99204 ==

== ENCOUNTER 2022-10-31 15:25 | Outpatient (CLI) | payer MEDICARE, SELFPAY ==
--- NOTE | 2022-10-31 16:00 | MR_ITS ---
WS: [id number] MRI CERVICAL SPINE NONCONTRAST TECHNIQUE: Sagittal T1, T2 and STIR imaging. Axial T2, gradient, and fiesta imaging. CLINICAL INFORMATION: numbness and tingling COMPARISON: None. FINDINGS: Straightening of the normal cervical lordosis. Grade 1 anterolisthesis C7 on T1 measuring 3 mm. Cord signal is normal. No high-grade central canal stenosis. Mild disc bulging throughout the cervical spi ne. C2-C3: Normal. C3-C4: Disc osteophyte complex with endplate ridging. Mild central canal stenosis. Moderate RIGHT gre ater than LEFT facet arthropathy. Moderate bilateral bony foraminal narrowing RIGHT greater than LEFT . C4-C5: Disc osteophyte complex with endplate ridging. Moderate facet arthropathy worse in the LEFT. M oderate to severe LEFT bony foraminal narrowing. Spinal canal is patent. C5-C6: Disc osteophyte complex with mild central canal stenosis. Severe LEFT bony foraminal narrowing . RIGHT foramen is patent. Advanced facet arthropathy. C6-C7: Disc osteophyte complex with mild central canal stenosis. Severe LEFT and moderate RIGHT bony foraminal narrowing. Moderate to advanced arthropathy. C7-T1: Grade 1 anterolisthesis. Spinal canal and foramen are patent. Visualized brain stem structures: Normal. Prevertebral soft tissues: Normal. MR/MR cervical spin wo con* [id number] IMPRESSION: 1. Straightening of the normal cervical lordosis. Grade 1 anterolisthesis C7 o n T1. 2. Mild central canal stenosis C3-C4 C5-C6 and C6-C7 due to disc osteophyte co mplexes with small protrusions. 3. Moderate to severe bony foraminal narrowing worse at LEFT C4-C5, LEFT C5-C6 , and LEFT C6-C7. 4. Moderate bilateral bony foraminal narrowing C3-C4. 5. Moderate to advanced facet arthropathy worse at bilateral C3-C4, LEFT C4-C5 , bilateral C5-C6 and bilateral C6-C7.
== END 2022-10-31 15:26 | disposition home or self-care (01) ==
LOC: RAD 15:28
PROVIDERS: PCP Family Medicine; Visit Provider Orthopaedic Surgery
DX: M48.02 Spinal stenosis, cervical region (principal); M54.2 Cervicalgia; R20.0 Anesthesia of skin
CPT/HCPCS: 72141

== ENCOUNTER → 2022-11-07 10:44 | Outpatient (BNVA) | payer MEDICARE, SELFPAY | PROVIDERS: PCP Family Medicine; Visit Provider Orthopaedic Surgery | DX: M48.02 Spinal stenosis, cervical region (principal); M48.03 Spinal stenosis, cervicothoracic region | CPT/HCPCS: 99214 ==

== ENCOUNTER → 2022-12-16 16:29 | Outpatient (BNVA) | payer MEDICARE, SELFPAY | PROVIDERS: PCP Family Medicine; Visit Provider Family Medicine | DX: R07.9 Chest pain, unspecified (principal); R53.1 Weakness; R00.0 Tachycardia, unspecified; R93.2 Abnormal findings on diagnostic imaging of liver and biliary tract; A07.1 Giardiasis [lambliasis] | CPT/HCPCS: 80053; 83735; 83880; 84443; 85025; 86140 ==

== ENCOUNTER 2023-01-15 12:36 | Outpatient (CLI) | payer MEDICARE, SELFPAY ==
--- NOTE | 2023-01-15 12:45 | USCV_ITS ---
Mauri Kunz Age: 67 Gender: M : 1955 Exam Date: 01/15/2023 12:56 Ordering Phys: Robinson Amaya MD Technologist: Exam Location: [facility] [place] Indication: sob BP: 134 / 74 HR: 88 Rhythm: Sinus Technical Quality: Adequate MEASUREMENTS (Male / Female) Normal Values 2D ECHO LV Diastolic Diameter PLAX 4.7 cm 4.2 - 5.9 / 3.9 - 5.3 cm LV Systolic Diameter PLAX 2.3 cm IVS Diastolic Thickness 1.3 cm 0.6 - 1.0 / 0.6 - 0.9 cm IVS Systolic Thickness 1.3 cm LVPW Diastolic Thickness 1.1 cm 0.6 - 1.0 / 0.6 - 0.9 cm LVPW Systolic Thickness 1.7 cm LVOT Diameter 2.0 cm LV Ejection Fraction 2D Teich 81.6 % LV Ejection Fraction MOD 2C 80.2 % LV Ejection Fraction 2C AL 79.5 % LA Diameter 3.7 cm Aorta at Sinotubular Diameter 2.9 cm IVC Diameter 1.7 cm M-MODE Aortic Annulus Diameter 3.9 cm LA Ao Ratio MM 1.1 MV E Point Septal Separation 0.5 cm DOPPLER AV Peak Velocity 104.0 cm/s LVOT Peak Velocity 75.0 cm/s AV Area Cont Eq vti 2.1 cm squared AV Area Cont Eq pk 2.2 cm squared MV Area PHT 5.0 cm squared Mitral E to A Ratio 0.6 MV E' Velocity 34.0 cm/s Mitral E to MV E' Ratio 6.0 Mitral E to LV E' Lateral Ratio 6.3 Mitral E to LV E' Septal Ratio 5.8 TR Peak Velocity 104.0 cm/s TR Peak Gradient 4.3 mmHg TV Peak E Velocity 71.0 cm/s Right Atrial Pressure 3.0 mmHg Pulmonary Artery Systolic Pressu 7.3 mmHg RV Acceleration Time 0.1 s FINDINGS Left Ventricle Left ventricle is normal in size. LV systolic function is normal with EF of 60 to 65%. No regional wall motion normalities are seen. Grade 1 diastolic dysfunction. Right Ventricle Normal in size and function Right Atrium Normal in size Left Atrium Normal in size Mitral Valve Structurally normal mitral valve. No significant stenosis or regurgitation. Aortic Valve Structurally normal aortic valve. No gross abnormality. Tricuspid Valve Trace tricuspid regurgitation. Insufficient TR jet to calculate RVSP. Pulmonic Valve Not well-visualized. Trace pulmonic regurgitation. Pericardium Normal Aorta Normal in size IVC Appears to be normal CONCLUSIONS LV systolic function is normal with EF 60 to 65%. Grade 1 diastolic dysfunction. Trace tricuspid regurgitation. Trace pulmonic regurgitation. No comparison studies are available Yusef Esquivel MD (Electronically Signed) Final Date: 29 January 2023 14:54 S
== END 2023-01-15 12:37 | disposition home or self-care (01) ==
LOC: RAD 12:36
PROVIDERS: PCP Family Medicine; Visit Provider Family Medicine
DX: R07.9 Chest pain, unspecified (principal); R53.1 Weakness
CPT/HCPCS: 93306

== ENCOUNTER 2023-01-16 09:19 | Outpatient (CLI) | payer MEDICARE, SELFPAY ==
--- NOTE | 2023-01-16 09:32 | NMCV_ITS ---
NM adenike perf SPECT r/s* [id number] Mauri Kunz Age: 67 Gender: M : 1955 Exam Date: 01/16/2023 10:27 Ordering Phys: Robinson Amaya MD Technologist: SALLY Johnson Exam Location: [facility] Indications: CHEST PAIN, WEAKNESS STRESS TEST Please see separate stress test report in [facility] for full findings IMAGE PROTOCOL Rest/Stress 1 Lexiscan Day Radiopharmaceutical Dose (mCi) Administration Site Administered by Rest: Tc-99m 10.4 IV SALLY Mckeon Sestamibi Stress:Tc-99m 32.5 IV SALLY Mckeon Sestamibi Rest: 16-Jan-2023 60 Discovery 630 Stress: 16-Jan-2023 30 Discovery 630 0.4mg Lexiscan. Images obtained in supine and prone position. SPECT RESULTS Technical Quality: Excellent Raw Data Analysis: Normal Image Corrections: No attenuation or motion correction applied Summed Stress Score: 2 Summed Rest Score: 3 Summed Difference Score: 0 PERFUSION FINDINGS There is small in size, fixed perfusion defect noted in the inferoseptal wall. 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 No evidence of ischemia is noted FUNCTIONAL RESULTS (calculated via Gated SPECT) Stress Image LV EF (%): 71 Stress EDV (mL):119 TID: 0.97 Stress ESV (mL):35 FUNCTIONAL FINDINGS: There is normal left ventricular systolic function. IMPRESSIONS 1. Abnormal myocardial perfusion imaging with small sized area of prior infarct noted in the RCA territory. No evidence of ischemia 2. LV systolic function is normal Yuesf Esquivel MD (Electronically Signed) Final Date: 18 January 2023 14:35 S
--- NOTE | 2023-01-16 09:32 | ECG_ITS ---
[facility] Test Date: 2023-01-16 Pat Name: Mauri Kunz Department: Room: Gender: Male Prepleater: : 1955 Requested By: Robinson Ellis Order Number: [id number] Jimmie MD: Yusef Esquivel M.D. Interpretive Statements NAME OF STUDY: LEXISCAN SESTAMIBI STRESS TEST INDICATION: [Chest Pain/Dyspnea, ] Procedure: At the baseline, the blood pressure was 149/83mmHg with a heart rate of 75 bpm. The electrocardiogram showed normal sinus rhythm, normal axis with normal ST and T's. The Lexiscan was infused over a period of 20 seconds. A total of 0.4 mg of Lexiscan was infused. The stress phase was continued for a total of 5 minutes. Heart rate was at the end of stress phase was 90 bpm and a blood pressure of 120/79 mmHg. The EKG at the peak infusion revealed normal sinus rhythm with no significant ST-T wave changes. Sestamibi was injected 20 seconds after the Lexiscan infusion. Blood pressure at the end of recovery phase was 125/84 mmHg with a heart rate of 87 bpm. Conclusion: 1. Normal EKG response to Lexiscan infusion 2. No Lexiscan induced chest pain or cardiac arrhythmia. 3. Normal blood pressure and heart rate response. 4. Sestamibi/sestamibi perfusion scan pending; see separate report. Electronically Signed On 01-19-2023 15:10:24 CDT by Yusef Esquivel M.D. [id number]
[2023-01-16 09:57] VITALS: BMI 25.0
[2023-01-16] MEDS: regadenoson 0.4 Mg/5 ml Syringe IVP (11:11)
[2023-01-16 11:48] VITALS: BP 134/86; PULSE 86
== END 2023-01-16 09:20 | disposition home or self-care (01) ==
LOC: CDL 09:22
PROVIDERS: PCP Family Medicine; Visit Provider Family Medicine
DX: R07.9 Chest pain, unspecified (principal); R53.1 Weakness
CPT/HCPCS: 36415; 78452; 93017; 96374; A9500; J2785

== ENCOUNTER → 2023-03-05 08:23 | Outpatient (BNVA) | payer MEDICARE, SELFPAY | PROVIDERS: PCP Family Medicine; Visit Provider Podiatrist Foot & Ankle Surgery | DX: R94.39 Abnormal result of other cardiovascular function study (principal); R00.2 Palpitations; R94.31 Abnormal electrocardiogram [ECG] [EKG]; M20.41 Other hammer toe(s) (acquired), right foot | CPT/HCPCS: 73630; 93005; 99203; 99204 ==

== ENCOUNTER 2023-03-20 10:46 | Outpatient (CLI) | payer MEDICARE, SELFPAY ==
--- NOTE | 2023-03-20 10:57 | XR_ITS ---
WS: [id number] Left rib detail, 4 views, 03/20/2023 Clinical Data: rib pain Comparison: None. Findings: A 10% left apical negative thorax is visible. There is a recording device overlying the midportion of the chest. No rib fractures are seen. No subcutaneous emphysema is present. There is osteoarthritic change of the left shoulder with a probable area of calcific bursitis and/or tendinitis. XR/XR ribs LT 2V* [id number] Impression: 1. 10% left apical pneumothorax. 2. Negative for left rib fracture.
--- NOTE | 2023-03-20 10:57 | XR_ITS ---
WS: [id number] PA and lateral chest, 03/20/2023 Clinical Data: pneumothorax Comparison: Portable chest, 06/13/2021 Findings: There is a 10% left apical pneumothorax. The right lung is fully expanded. No nodules, mass es or effusions are seen. The heart is normal. No pneumonia is present. There is a recording device o verlying the midportion of the chest. There is a right shoulder arthroplasty. XR/XR chest 2V* [id number] Impression: 10% left apical pneumothorax.
== END 2023-03-20 10:47 | disposition home or self-care (01) ==
PROVIDERS: PCP Family Medicine; Visit Provider Family Medicine
DX: J93.9 Pneumothorax, unspecified (principal); R07.81 Pleurodynia
CPT/HCPCS: 71046; 71100

== ENCOUNTER 2023-03-21 09:59 | Outpatient (CLI) | payer MEDICARE, SELFPAY ==
--- NOTE | 2023-03-21 10:10 | XR_ITS ---
WS: [id number] Chest 2 views, 03/21/2023 Clinical Data: pneumothorax Comparison: Two-view chest, 03/20/2023 Findings: The 10% left apical pneumothorax remains the same. The right lung is fully expanded. The pu lmonary vascularity is not increased. No pneumonia is seen. The heart is normal. There is a recording device overlying the upper anterior chest. There is a right shoulder arthroplasty. XR/XR chest 2V* [id number] Impression: No change in 10% left apical pneumothorax
== END 2023-03-21 10:00 | disposition home or self-care (01) ==
PROVIDERS: PCP Family Medicine; Visit Provider Family Medicine
DX: J93.9 Pneumothorax, unspecified (principal)
CPT/HCPCS: 71046

== ENCOUNTER 2023-03-25 11:44 | Outpatient (CLI) | payer MEDICARE, SELFPAY ==
--- NOTE | 2023-03-25 11:57 | XRR_ITS ---
PROCEDURE INFORMATION: Exam: XR Chest Exam date and time: 03/25/2023 12:00 PM Age: 67 years old Clinical indication: Condition or disease; Lung condition and disease; Pneumothorax TECHNIQUE: Imaging protocol: Radiologic exam of the chest. 2image(s) are provided. Views: 2 views. COMPARISON: CR XR chest 2V* [id number] 03/21/2023 10:20 AM FINDINGS: Lungs: There is mild chronic air trapping appearance similar overall.No lobar consolidation is appreciated. Pleural spaces: Previously described left pneumothorax is nearly completely resolved with some trace residual of the extreme apical margin. No significant interval pleural effusion is appreciated. Heart/Mediastinum: The cardiomediastinal silhouette is within normal. No cardiac decompensation is appreciated. Diaphragm: There is slight asymmetric right hemidiaphragm elevation. Bones/joints: There is some post interventional change overall present centrally as well as the right shoulder. The overall orientation is similar. Osseous alignment is maintained.No interval displaced fracture or dislocation is appreciated. Soft tissues: No radiopaque foreign body or subcutaneous emphysema is appreciated. Other findings: No other significant interval changes are appreciated. XR/XR chest 2V* [id number] IMPRESSION: The previously described left apical pneumothorax is nearly completely resolved with some minimal trace residual.
== END 2023-03-25 11:45 | disposition home or self-care (01) ==
LOC: RAD 11:49
PROVIDERS: PCP Family Medicine; Visit Provider Family Medicine
DX: J93.9 Pneumothorax, unspecified (principal)
CPT/HCPCS: 71046

== ENCOUNTER → 2023-05-21 12:59 | Outpatient (BNVA) | payer MEDICARE, SELFPAY | PROVIDERS: PCP Family Medicine; Visit Provider Internal Medicine | DX: R00.2 Palpitations (principal); R94.39 Abnormal result of other cardiovascular function study | CPT/HCPCS: 99213; 99214 ==

== ENCOUNTER → 2023-05-28 13:08 | Outpatient (BNVA) | payer MEDICARE, SELFPAY | PROVIDERS: PCP Family Medicine; Referring Provider Dermatology; Visit Provider Nurse Practitioner Family | DX: L90.5 Scar conditions and fibrosis of skin (principal); D22.39 Melanocytic nevi of other parts of face; L82.1 Other seborrheic keratosis; L21.8 Other seborrheic dermatitis | CPT/HCPCS: 11102; 99204 ==

== ENCOUNTER → 2023-06-25 09:13 | Outpatient (BNVA) | payer MEDICARE, SELFPAY | PROVIDERS: PCP Family Medicine; Visit Provider Clinical Nurse Specialist Adult Health | DX: K51.911 Ulcerative colitis, unspecified with rectal bleeding; Z79.899 Other long term (current) drug therapy | CPT/HCPCS: 80053; 85025; 85651; 86140 ==

== ENCOUNTER 2023-07-31 06:07 | Inpatient (IN) | payer MEDICARE, SELFPAY ==
[2023-07-31] VITALS (14 sets, daily range): BP systolic 91–125; BP diastolic 63–83; PULSE 72–114; RESP 10–22; TEMP 36.6–36.7; O2SAT 96–99; BMI 24.7
--- NOTE | 2023-07-31 07:39 | P.HP_ITS ---
Providers/Chief Complaint Admitting Physician: Nolberto Miller MD Primary Care Provider: Robinson Amaya MD Chief Complaint: a-fib rbr History of Present Illness Mauri Kunz is a 67 year old male who presented to our hospital from outside transfer after being found to have atrial fibrillation with RVR. The pt described that he could feel his heart racing and became worried because he has had this occur to him once before in November. He does not recall any precipitating factors including alcohol intake, excessive caffeine intake, or sleep apnea. The pt is also consistent with taking his levothyroxine. He did say he has been working on his deck in the past week. When the palpitations started, he also described feeling short of breath as well. In November, the pt said he had a similar episode, which was evaluated by his PCP and then by cardiology, where he says he was told he had an heart attack previously. He also states he has been more short of breath in the past several weeks on exertion, and it can take up to 30 minutes before he is able to catch his breath. This frustrates him because he used to be very active. The pt has a history of ulcerative colitis for which he is taking predisone. He denies any abdominal pain currently and only on occasion has blood in his stool. He denies any recent illness, sick contacts, or fever. The patient is without chest pain or shortness of breath with rest. His only positive review of systems was chest palpitations. In the outlying emergency department the patient received a diltiazem bolus of 10 mg IV, and a diltiazem drip. He also received a normal saline bolus. Review of Systems General: Reports: 10 or more systems reviewed and unremarkable except in HPI and below Const: Denies: fever(s) or chills Card: Reports: palpitations, irregular heart rhythm and dyspnea on exertion; Denies: chest pain, edema, swelling of feet/ankles or syncope Resp: Denies: dyspnea (with rest) GI: Reports: hematochezia (minimally); Denies: abdominal pain, nausea, vomiting, diarrhea or constipation : Denies: difficulty urinating or dysuria Medications/Allergies Home Medications Medication Instructions Recorded Confirmed Last Taken Type mesalamine 1.2 gram tablet,delayed 4.8 g PO QAM 03/05/23 07/31/23 Unknown Histo ry release furosemide 20 mg tablet (Lasix) 20 mg PO DAILY PRN edema #90 tabs 05/21/23 07/31/23 Unknown Rx atorvastatin 10 mg tablet 10 mg PO DAILY #30 tabs 07/09/23 07/31/23 Unknown Rx ketoconazole 2 % shampoo See Rx Instructions .Route .COMPLEX 07/31/23 07/31/23 Unknown History ketoconazole 2 % topical cream See Rx Instructions .Route .COMPLEX 07/31/23 07/31/23 Unknown History krill oil 500 mg capsule 500 mg PO DAILY 07/31/23 07/31/23 Unknown History levothyroxine 150 mcg tablet 150 mcg PO BEDTIME 07/31/23 07/31/23 Unknown History lisinopril 10 mg tablet 10 mg PO QAM 07/31/23 07/31/23 Unknown History warhjtej-kczd-eeyrhot gluconate 9 15 ml PO DAILY 07/31/23 07/31/23 Unknown History mg iron/15 mL (15 mL) oral liquid (Liquid Multivitamin) prednisone 20 mg tablet 40 mg PO QAM 07/31/23 07/31/23 Unknown History Allergies Allergy/AdvReac Type Severity Reaction Status Date / Time morphine AdvReac ADR-Vomitin Verified 07/31/23 08:08 g PFSH Acute PFSH: Medical History Atrial fibrillation Diverticulosis Proctosigmoiditis Ulcerative colitis, acute Surgical History H/O circumcision H/O colonoscopy (05/16/21) 02/10/2018 H/O release of tendon H/O rotator cuff surgery H/O shoulder replacement History of knee replacement procedure of right knee 2010 History of left knee replacement 2022 History of nasal surgery Family History Father Bleeding disorder Hypertension CAD (coronary artery disease) Mother Hypertension Denies family history of Anesthesia complication Social History Alcohol intake: never Substance/Drug Use: never Household members: spouse Marital status: Current occupational status: employed Physical Exam Narrative: General: pt is alert, cooperative, conversant pt breathing comfortable on room air. HEENT: atraumatic, normocephalic Neck: supple, no lymphadenopathy, no thyromegaly. \ Cardiac: normal rate. irregularly irregular rhythm. No murmurs appreciated. Respiratory: clear to ausculation. Abdomen: normoactive bowel sounds in all 4 quadrants, no tenderness to palpation. No obvious organomegaly. : deferred. Skin: no bruising, cyanosis, rashes, edema. Extremities: 2+ pulses in upper and lower extremities. Brisk capillary refill. Neuro: no focal neurologic deficits. Data Other Labs: White blood cell count 7.1, hemoglobin 13.1, platelet count 260,000 Troponin 10 Sodium 137, potassium 4.1, chloride 103, bicarb 23, BUN 29, calcium 9.1, creatinine 0.98, glucose 135. LFTs normal BNP 87 2-hour troponin 21 TSH 1.3 EKG demonstrates atrial fibrillation with a rate of approximately 130, normal axis. Nonspecific ST-T wave changes. I reviewed this personally Chest x-ray was ordered and I reviewed personally. Normal cardiac silhouette, no infiltrate A&P Assessment and plan (1) Atrial fibrillation: Pt was given diltiazem bolus of 10 IV prior to arrival. Started metoprolol 25 BID for rate and rhythm contol. Lovenox started as it can be stopped easily due to concern for blood loss secondary to ulcerative colitis Cardiology consultation Electrolytes, TSH were normal. (2) Inflammatory bowel disease: Continue prednisone at 40 mg daily PO. Continue home medications for U.C. as written. Starting Lovenox for atrial fibrillation-see above. (3) Hypertension: Pt blood pressure was running more hypotensive on arrival. Will continue to monitor. Pt has history of hypertension, which can be managed with metoprolol being given for pt's afib. Blood pressure may limit the ability to increase metoprolol further and other agents may need to be used. Hold lisinopril curre ntly. (4) Abnormal stress test: Pt had abnormal stress test in May showing abnormal fixed perfusion in RCA territory. No reversible ischemia Low-dose aspirin, statin, beta-liseth Plan Other medical problems as listed in past medical history Full code Lovenox will suffice for DVT prophylaxis Patient with serious medical condition with atrial fibrillation with rapid ventricular rate, and low blood pressures requiring close monitoring and adjustment of medications. Highly likely he may require further IV doses if ra pid ventricular rate recurs after initial discontinuation of IV Cardizem Attestations Medical Necessity Statement*: Will need greater than 2 midnight stay for evaluation and treatment of atrial fibrillation with rapid ventricular rate Diagnoses Atrial fibrillation I48.91 Inflammatory bowel disease K52.9 Hypertension I10 Abnormal stress test R94.39 Time Spent (min) 48
--- NOTE | 2023-07-31 07:47 | XRR_ITS ---
PROCEDURE INFORMATION: Exam: XR Chest Exam date and time: 07/31/2023 8:17 AM Age: 67 years old Clinical indication: Other: Arrhythmia TECHNIQUE: Imaging protocol: Radiologic exam of the chest. Views: 1 view. COMPARISON: CR XR chest 2V* [id number] 03/25/2023 12:00 PM FINDINGS: Lungs: Unremarkable. No consolidation. Pleural spaces: Unremarkable. No pleural effusion. No pneumothorax. Heart/Mediastinum: Unremarkable. No cardiomegaly. Bones/joints: Unremarkable. XR/XR chest 1V portable [id number] IMPRESSION: No acute findings.
--- NOTE | 2023-07-31 08:31 | PC.PHAR ---
PT STATE HE TAKES CARE OF HIS OWN MEDICATIONS-PT STATES HE IS NOT TAKING DICLOFENAC 75MG BID EXT SHOWS LAST FILLED 07/29/23 30D/S-PT STATES NO LONGER TAKES ASPIRIN 81MG STATES THE DR RODRIGES-PT STATES HE HAS LASIX 20MG TO TAKE PRN PT STATES HE HAS THE MED BUT DOESNT TAKE-NOTES ARE MADE IN THE PHARMACY COMMENTS
--- NOTE | 2023-07-31 08:42 | P.CONIM_ITS ---
Providers/Reason For Consult Consulting Physician/Specialty*: Yusef Esquivel MD/ Cardiology Reason for Consult*: Afib with RVR Requesting Physician: Dr Miller Attending Physician: Nolberto Miller MD Primary Care Provider: Robinson Amaya MD History of Present Illness History of Present Illness Mauri Kunz is a 67 year old male with PMH of ulcerative colitis who has been transferred from outside hospital for atrial fibrillation with RVR. According to patient, he does get on and off palpitations but has been having prolonged episodes recently. In the past event monitor did not reveal atrial fibrillation. He has occasional blood in stools from inflammatory bowel disease. Review of Systems General: Reports: 10 or more systems reviewed and unremarkable except in HPI and below Const: Denies: fever(s) or chills Card: Reports: palpitations, irregular heart rhythm and dyspnea on exertion; Denies: chest pain, edema, swelling of feet/ankles or syncope Resp: Denies: dyspnea (with rest) GI: Reports: hematochezia (minimally); Denies: abdominal pain, nausea, vomiting, diarrhea or constipation : Denies: difficulty urinating or dysuria Medications/Allergies Home Medications Medication Instructions Recorded Confirmed Last Taken Type mesalamine 1.2 gram tablet,delayed 4.8 g PO QAM 03/05/23 07/31/23 Unknown History release furosemide 20 mg tablet (Lasix) 20 mg PO DAILY PRN edema #90 tabs 05/21/23 07/31/23 Unknown Rx atorvastatin 10 mg tablet 10 mg PO DAILY #30 tabs 07/09/23 07/31/23 Unknown Rx ketoconazole 2 % shampoo See Rx Instructions .Route .COMPLEX 07/31/23 07/31/23 Unknown History ketoconazole 2 % topical cream See Rx Instructions .Route .COMPLEX 07/31/23 07/31/23 Unknown History krill oil 500 mg capsule 500 mg PO DAILY 07/31/23 07/31/23 Unknown History levothyroxine 150 mcg tablet 150 mcg PO BEDTIME 07/31/23 07/31/23 Unknown History lisinopril 10 mg tablet 10 mg PO QAM 07/31/23 07/31/23 Unknown History pcbgafib-yrif-vzuhwtv gluconate 9 15 ml PO DAILY 07/31/23 07/31/23 Unknown History mg iron/15 mL (15 mL) oral liquid (Liquid Multivitamin) prednisone 20 mg tablet 40 mg PO QAM 07/31/23 07/31/23 Unknown History Allergies Allergy/AdvReac Type Severity Reaction Status Date / Time morphine AdvReac ADR-Vomitin Verified 07/31/23 08:08 g PFSH Acute PFSH: Medical History Atrial fibrillation Diverticulosis Proctosigmoiditis Ulcerative colitis, acute Surgical History H/O circumcision H/O colonoscopy (05/16/21) 02/10/2018 H/O release of tendon H/O rotator cuff surgery H/O shoulder replacement History of knee replacement procedure of right knee 2010 History of left knee replacement 2022 History of nasal surgery Family History Father Bleeding disorder Hypertension CAD (coronary artery disease) Mother Hypertension Denies family history of Anesthesia complication Social History Alcohol intake: never Substance/Drug Use: never Household members: spouse Marital status: Current occupational status: employed Vitals/I&O/Wt Last Vital Signs Pulse 79 07/31/23 07:55 Resp 18 07/31/23 07:55 BP 91/63 07/31/23 07:55 Pulse Ox 98 07/31/23 07:55 Weight last 48 hrs Weight 203 lb 9.6 oz Physical Exam Const: COMMON NORMALS: no acute distress, patient oriented x3 and alert HENMT: COMMON NORMALS: normocephalic HEAD & SCALP: normocephalic Resp: COMMON NORMALS: clear to auscultation bilaterally AUSCULTATION: clear to auscultation bilaterally Cardio: COMMON NORMALS: regular rate, regular rhythm, S1 normal heart sound present and S2 normal heart sound present RATE: regular rate RHYTHM: r egular rhythm HEART SOUNDS: S1 normal heart sound present and S2 normal heart sound present Extremity: NARRATIVE EXTREMITY EXAM: No significant edema Neuro: COMMON NORMALS: patient oriented x3 SENSORIUM/ORIENTATION: Yes alert Data 08/01/23 04:46 08/01/23 04:46 A&P Assessment and plan (1) Atrial fibrillation: (2) Hypertension: (3) Inflammatory bowel disease: Plan Patient has newly diagnosed afib. Currently back in normal sinus rhythm. If has afib with RVR again can continue metoprolol and load with digoxin Continue lovenox for now. If no GI bleed, can discharge home tomorrow on eliquis Last echo showed normal LV systolic function Thank you for involving us with care of this patient. We will continue to follow. Please call with questions. Consult Attestations Medical Necessity Statement: Care not expected to cross 2 midnights. Coding Level of Care Code Acute Code for g Fwd Diagnoses Atrial fibrillation I48.91 Hypertension I10 Inflammatory bowel disease K52.9
[2023-07-31] MEDS: predniSONE 20 mg Tablet 40 MG PO (09:06)
[2023-07-31] MEDS: metoprolol tartrate 25 mg Tablet PO ×2 (09:06→20:36)
[2023-07-31] MEDS: enoxaparin 100 mg/mL Syringe 90 MG SUBCUT ×2 (09:07→20:37)
[2023-07-31] MEDS: atorvastatin 40 mg Tablet 20 MG PO (12:58)
[2023-07-31] MEDS: levothyroxine 150 mcg Tablet PO (20:36)
[2023-08-01] VITALS: BP 122/75; PULSE 79; RESP 16; TEMP 36.7; O2SAT 98
[2023-08-01 04:00] VITALS: BP 135/81; PULSE 75; RESP 15; TEMP 36.6; O2SAT 97
[2023-08-01 05:10] LABS: Basophils % 0.1 %; Eosinophils # 0.1 10^3/uL (0.0-0.8); Eosinophils % 1.2 %; Hematocrit 39.8 % (37-53); Lymphocytes # 1.9 10^3/uL (0.8-4.8); Lymphocytes % 26.3 %; Mean Corpuscular HGB Conc 30.2 g/dL (30-55); Mean Corpuscular Hemoglobin 26.3 pg (27-33); Mean Corpuscular Volume 87.1 fl (82-101); Mean Platelet Volume 8.9 fL (7.4-10.4); Monocytes # 0.6 10^3/uL (0.2-0.9); Monocytes % 8.6 %; Neutrophils # 4.59 10^3/uL (1.8-7.7); Neutrophils % 63.5 %; Nucleated Red Blood Cells % 0 %; Platelet Count 236 10^3/cmm (157-399); Red Blood Count 4.57 10^6/uL (3.85-5.65); Red Cell Distribution Width 14.3 % (12.1-15.1); White Blood Count 7.23 10^3/uL (3.29-11.43)
[2023-08-01 05:25] LABS: Alanine Aminotransferase 13 U/L (0-41); Albumin Level 3.3 g/dL (3.5-5.2); Alkaline Phosphatase 60 U/L (40-130); Anion Gap 10.9 (5-19); Aspartate Amino Transferase 9 U/L (0-40); Blood Urea Nitrogen 19 mg/dL (8-23); Calcium 8.7 mg/dL (8.5-10.5); Carbon Dioxide 28 mmol/L (22-29); Chloride 107 mmol/L (98-107); Globulin 2.5 g/dL (1.3-4.6); Glomerular Filtration Rate 83.9 mL/min (90-130); Glucose 97 mg/dL (65-115); Osmolality Calculated 296 mOsm/kg (285-295); Potassium 3.9 mmol/L (3.5-5.1); Sodium 142 mmol/L (136-145); Total Bilirubin 0.8 mg/dL (0.15-1.2); Total Protein 5.8 g/dL (6.6-8.7)
[2023-08-01 06:00] VITALS: PULSE 72
[2023-08-01 08:00] VITALS: BP 139/86; PULSE 83; RESP 14; TEMP 36.5; O2SAT 97
--- NOTE | 2023-08-01 08:05 | PM.DCS ---
Discharge Providers Date of Admission: 07/31/23 06:07 Date of Discharge: August 01, 2023 Attending Provider at Admission: Rae Edouard MD Attending Provider at Discharge: Nolberto Miller MD Primary Care Provider: Robinson Amaya MD Diagnoses at Discharge Discharge Diagnosis (1) Atrial fibrillation: Status: Acute (2) Hypertension: Status: Acute (3) Inflammatory bowel disease: Status: Acute Reason for Visit Reason for Visit: a-fib rbr Hospital Course Hospital Course Mauri is a 67-year-old white male who presented to the hospital from an outlying emergency department with palpitations and was found to be in atrial fibrillation with rapid ventricular rate. He was given a Cardizem bolus and started on a drip. On arrival to our hospital, metoprolol was initiated. Lovenox was initiated. Cardiology was consulted. He received 1 dose of digoxin. He then spontaneously converted to sinus rhythm. Metoprolol and Lovenox was continued. Following day he was doing well, still in sinus rhythm. It was thought he could be discharged home, with continued therapy with metoprolol and Eliquis. He is to see cardiology in 2 weeks, primary care provider 3 to 5 days. Electrolytes, TSH were all normal. He had had a stress test in May showing a fixed perfusion defect with no reversible ischemia. His low-dose aspirin and beta-liseth and statin will continue. He was counseled on the risks and benefits of Eliquis and is to watch for any significant bleeding. An echo had previously been performed in January showing preserved EF. He was given an opportunity to ask questions, and agreed with the plan. Physical Exam Narrative: General exam no distress Neck is supple Cardiovascular regular rate rhythm without murmur Lungs clear Abdomen is soft Extremities no cyanosis clubbing or edema Discharge Data Studies Completed and Pending Completed Studies During Hospitalization Category Date Time Status XR chest 1V portable [id number] Routine Exams 07/31/23 07:47 Completed Radiology Impressions Chest X-Ray 07/31/23 07:47 IMPRESSION: No acute findings. Laboratory Results WBC 7.23 10^3/uL (3.29-11.43) 08/01/23 04:46 RBC 4.57 10^6/uL (3.85-5.65) 08/01/23 04:46 Hgb 12.00 g/dL (11.27-16.99) 08/01/23 04:46 Hct 39.8 % (37-53) 08/01/23 04:46 MCV 87.1 fl (82-101) 08/01/23 04:46 MCH 26.3 pg (27-33) L 08/01/23 04:46 MCHC 30.2 g/dL (30-55) 08/01/23 04:46 RDW 14.3 % (12.1-15.1) 08/01/23 04:46 Plt Count 236 10^3/cmm (157-399) 08/01/23 04:46 MPV 8.9 fL (7.4-10.4) 08/01/23 04:46 Neut % (Auto) 63.5 % 08/01/23 04:46 Lymph % (Auto) 26.3 % 08/01/23 04:46 Jennings % (Auto) 8.6 % 08/01/23 04:46 Eos % (Auto) 1.2 % 08/01/23 04:46 Baso % (Auto) 0.1 % 08/01/23 04:46 Neut # (Auto) 4.59 10^3/uL (1.8-7.7) 08/01/23 04:46 Lymph # (Auto) 1.9 10^3/uL (0.8-4.8) 08/01/23 04:46 Jennings # (Auto) 0.6 10^3/uL (0.2-0.9) 08/01/23 04:46 Eos # (Auto) 0.1 10^3/uL (0.0-0.8) 08/01/23 04:46 Baso # (Auto) 0.0 10^3/uL (0.0-0.1) 08/01/23 04:46 Nucleated RBC % (auto) 0 % 08/01/23 04:46 Nucleated RBCs # 0.0 /100WBC 08/01/23 04:46 Sodium 142 mmol/L (136-145) 08/01/23 04:46 Potassium 3.9 mmol/L (3.5-5.1) 08/01/23 04:46 Chloride 107 mmol/L (98-107) 08/01/23 04:46 Carbon Dioxide 28 mmol/L (22-29) 08/01/23 04:46 Anion Gap 10.9 (5-19) 08/01/23 04:46 BUN 19 mg/dL (8-23) 08/01/23 04:46 Creatinine 0.9 mg/dL (0.7-1.2) 08/01/23 04:46 GFR Calculation 83.9 mL/min (90-130) L 08/01/23 04:46 Glucose 97 mg/dL (65-115) 08/01/23 04:46 Calculated Osmolality 296 mOsm/kg (285-295) H 08/01/23 04:46 Calcium 8.7 mg/dL (8.5-10.5) 08/01/23 04:46 Magnesium 2.0 mg/dL (1.7-2.3) 08/01/23 04:46 Total Bilirubin 0.8 mg/dL (0.15-1.2) 08/01/23 04:46 AST 9 U/L (0-40) 08/01/23 04:46 ALT 13 U/L (0-41) 08/01/23 04:46 Alkaline Phosphatase 60 U/L (40-130) 08/01/23 04:46 Total Protein 5.8 g/dL (6.6-8.7) L 08/01/23 04:46 Albumin 3.3 g/dL (3.5-5.2) L 08/01/23 04:46 Globulin 2.5 g/dL (1.3-4.6) 08/01/23 04:46 Vitals Last Vital Signs Temp 97.9 F 08/01/23 04:00 Pulse 72 08/01/23 06:00 Resp 15 08/01/23 04:00 BP 135/81 08/01/23 04:00 Pulse Ox 97 08/01/23 04:00 O2 Del Method Room Air 08/01/23 04:00 Discharge Plan Discharge Patient Disposition: Home Condition: Stable Prescriptions: New metoprolol tartrate 25 mg Tablet 25 mg PO BID@0900,2100 Qty: 60 0RF Eliquis 5 mg Tablet 5 mg PO BID@0900,2100 Qty: 60 0RF Continued mesalamine 1.2 gram tablet,delayed release (DR/EC) 4.8 g PO QAM Rx Instructions: (4.8g = 4 tabs) furosemide [Lasix] 20 mg tablet 20 mg PO DAILY PRN (Reason: edema) Qty: 90 2RF atorvastatin 10 mg tablet 10 mg PO DAILY Qty: 30 11RF ketoconazole 2 % shampoo See Rx Instructions .ROUTE .COMPLEX Rx Instructions: APPLY TO SCALP EVERY OTHER WASH NEEDED. USE FACE WASH AND BEHIND EARS. SET FOR 5 MINUTES BEFORE RINSING. prednisone 20 mg tablet 40 mg PO QAM ketoconazole 2 % cream See Rx Instructions .ROUTE .COMPLEX Rx Instructions: APPLY A SMALL AMOUNT TOPICALLY TWICE DAILY FOR TWO WEEKS TO AFFECTED AREAS OF THE FACE. NOT FOR EYES OR INSIDE MOUTH. MAY USE NEEDED FOR FLARES FOLLOWING COMPLETION OF REGIMEN NEEDED. krill oil 500 mg Capsule 500 mg PO DAILY Liquid Multivitamin 9 mg iron/ 15 mL (15 mL) Liquid 15 ml PO DAILY levothyroxine 150 mcg tablet 150 mcg PO BEDTIME Discontinued lisinopril 10 mg tablet 10 mg PO QAM Discharge Orders: Discharge Order (Routine); Ordered 08/01/23 Ordered By: Nolberto Miller Referrals: Yusef Esquivel M.D [Physician] - 2 weeks Robinson Amaya MD [Primary Care Provider] - 4-7 days Discharge Diet: Cardiac Discharge Activity: Increase activity as tolerated Patient Instructions: Opioid Safety Activity Restrictions/Additional Instructions: Take all medicine as prescribed Monitor for any significant bleeding. If this occurs please call your primary care provider cardiology Follow-up with your primary care provider 3 to 5 days, cardiology 2 weeks. Discharge Attestations Time Spent in Discharge Care*: greater than 30 min Quality Metrics Clinical Quality Measures [ No reported AMI, CVA or VTE this stay] Coding Level of Care Code 13446 Total time (in minutes) for Discharge: 34 Diagnoses Atrial fibrillation I48.91 Hypertension I10 Inflammatory bowel disease K52.9
[2023-08-01 08:10] VITALS: PULSE 72
[2023-08-01] MEDS: atorvastatin 40 mg Tablet 20 MG PO (08:37)
[2023-08-01] MEDS: apixaban 5 mg Tablet PO (08:37)
[2023-08-01] MEDS: metoprolol tartrate 25 mg Tablet PO (08:38)
[2023-08-01] MEDS: predniSONE 20 mg Tablet 40 MG PO (08:38)
--- NOTE | 2023-08-01 08:48 | P.PN_ITS ---
Subjective Subjective: Patient is doing well. No chest pain. Converted back to sinus rhythm yesterday and is staying in it Vitals/I&O/Wt Last Vital Signs Temp 97.7 F 08/01/23 08:00 Pulse 72 08/01/23 08:10 Resp 14 08/01/23 08:00 BP 139/86 08/01/23 08:00 Pulse Ox 97 08/01/23 08:00 O2 Del Method Room Air 08/01/23 08:00 07/31/23 08/01/23 08/01/23 22:59 06:59 14:59 Intake Total 240 / 1320 360 / 360 Balance 240 / 1320 360 / 360 Weight last 48 hrs Weight 199 lb Weight 203 lb 9.6 oz Weight 203 lb 9.6 oz Physical Exam Const: COMMON NORMALS: no acute distress, patient oriented x3 and alert HENMT: COMMON NORMALS: normocephalic HEAD & SCALP: normocephalic Resp: COMMON NORMALS: clear to auscultation bilaterally AUSCULTATION: clear to auscultation bilaterally Cardio: COMMON NORMALS: regular rate, regular rhythm, S1 normal heart sound present and S2 normal heart sound present RATE: regular rate RHYTHM: regular rhythm HEART SOUNDS: S1 normal heart sound present and S2 normal heart sound present Extremity: NARRATIVE EXTREMITY EXAM: No significant edema Neuro: COMMON NORMALS: patient oriented x3 SENSORIUM/ORIENTATION: Yes alert Data 08/01/23 04:46 08/01/23 04:46 A&P Assessment and plan (1) Atrial fibrillation: (2) Hypertension: (3) Inflammatory bowel disease: Plan Patient is staying in normal sinus rhythm. Continue metoprolol. Patient can be discharged on Eliquis 5 mg twice daily. Thank you for involving us with care of this patient. Outpatient cardiology followup. Please call with questions. Attestations Medical Necessity Statement*: Care expected to cross 2 midnights. Coding Level of Care Code Acute Code for [facility] Fwd Diagnoses Atrial fibrillation I48.91 Hypertension I10 Inflammatory bowel disease K52.9
--- NOTE | 2023-08-01 09:20 | PC.CHAP ---
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 [] Patient/Family/Request visit [] Outpatient visit [] Follow-up visit [] Physician referral [] Code/Alert [x] Routine visit [] Staff referral [] Actively dying [] Patient sleeping [] Family support [] [] Out of room [] Palliative care [] [] Receiving care in room [] Pre-surgical visit [] Trauma [] Long length of stay [] ICU visit [] Other: Relational/Emotional Strength [x] Patient feels connected with others/family/visitors/staff [] Distress [] Loneliness/isolation [] Abandonment Spirituality of Patient [] Person of [place] [] Attends Church of their [place] [] Believes in Prayer [] Reads Bible or Baptist materials [x] There are Spiritual issues to be addressed [employer] Interventions [] Prayer [x] Active listening [x] Non-anxious presence [] Spiritual/emotional support [] Crisis/trauma care [] Spiritual counseling [] Bereavement support [] Provided bereavement packet [] Provided Bible/devotional materials [] Provided toy/stuffed animal, coloring book to patient or family member [] Provided Communion [] Anointing/[place] [] Salvation [x Completed spiritual assessment [] Other: Impact on Illness or Injury [] Angry [] Fearful [] Anxious [] Often cries [] Exhaustion [] Unable to work [] Unable to attend judaism [] Unable to walk/stand [] Unable to read [] Unable to drive [] Unable to eat/drink [] Unable to sleep [] Unable to be with family [] Patient intubated [] Other: Summary Time spent with patient 5 min
== END 2023-08-01 10:35 | disposition home or self-care (01) | DRG 309 ==
PROVIDERS: Admitting Provider Internal Medicine; PCP Family Medicine; Visit Provider Internal Medicine
DX: I48.91 Unspecified atrial fibrillation (principal); K51.90 Ulcerative colitis, unspecified, without complications; I10 Essential (primary) hypertension; Z79.52 Long term (current) use of systemic steroids; Z96.653 Presence of artificial knee joint, bilateral
CPT/HCPCS: 36415; 71045; 80053; 83735; 85025; 96372; J1650; J7512

== ENCOUNTER → 2023-08-08 10:29 | Outpatient (BNVA) | payer MEDICARE, SELFPAY | PROVIDERS: PCP Family Medicine; Visit Provider Nurse Practitioner Family | DX: I48.91 Unspecified atrial fibrillation (principal); I10 Essential (primary) hypertension; Z79.01 Long term (current) use of anticoagulants | CPT/HCPCS: 99214 ==

== ENCOUNTER → 2023-10-21 13:51 | Outpatient (BNVA) | payer MEDICARE, SELFPAY | PROVIDERS: PCP Family Medicine; Visit Provider Clinical Nurse Specialist Adult Health | DX: R19.7 Diarrhea, unspecified (principal); K51.911 Ulcerative colitis, unspecified with rectal bleeding | CPT/HCPCS: 87045; 87427; 87449; 87493 ==

== ENCOUNTER → 2023-11-04 08:20 | Outpatient (BNVA) | payer MEDICARE, SELFPAY | PROVIDERS: PCP Family Medicine; Visit Provider Family Medicine | DX: R51.9 Headache, unspecified (principal); K52.9 Noninfective gastroenteritis and colitis, unspecified; K51.911 Ulcerative colitis, unspecified with rectal bleeding; R93.2 Abnormal findings on diagnostic imaging of liver and biliary tract; I48.91 Unspecified atrial fibrillation | CPT/HCPCS: 80053; 85025; 86003; 86008 ==

== ENCOUNTER → 2023-11-26 13:42 | Outpatient (BNVA) | payer MEDICARE, SELFPAY | PROVIDERS: PCP Family Medicine; Visit Provider Internal Medicine | DX: R00.2 Palpitations (principal); I48.91 Unspecified atrial fibrillation; R94.39 Abnormal result of other cardiovascular function study; I10 Essential (primary) hypertension | CPT/HCPCS: 99214 ==

== ENCOUNTER → 2023-12-29 10:57 | Outpatient (BNVA) | payer MEDICARE, SELFPAY | PROVIDERS: PCP Family Medicine; Visit Provider Nurse Practitioner Family | DX: L57.0 Actinic keratosis (principal); S50.862A Insect bite (nonvenomous) of left forearm, initial encounter; X58.XXXA Exposure to other specified factors, initial encounter; L90.5 Scar conditions and fibrosis of skin; D22.5 Melanocytic nevi of trunk; L21.8 Other seborrheic dermatitis; L82.1 Other seborrheic keratosis | CPT/HCPCS: 10120; 17000; 99213 ==

== ENCOUNTER → 2024-02-03 12:11 | Outpatient (BNVA) | payer MEDICARE, SELFPAY | PROVIDERS: PCP Family Medicine; Visit Provider Family Medicine | DX: R19.7 Diarrhea, unspecified (principal) | CPT/HCPCS: 87046 ==

== ENCOUNTER → 2024-03-11 10:14 | Outpatient (BNVA) | payer MEDICARE, SELFPAY | PROVIDERS: PCP Family Medicine; Visit Provider Podiatrist Foot & Ankle Surgery | DX: M20.41 Other hammer toe(s) (acquired), right foot (principal); M79.671 Pain in right foot | CPT/HCPCS: 73630; 99214 ==

== ENCOUNTER → 2024-03-30 14:20 | Outpatient (BNVA) | payer MEDICARE, SELFPAY | PROVIDERS: PCP Family Medicine; Visit Provider Nurse Practitioner Family | DX: L57.0 Actinic keratosis (principal); L82.0 Inflamed seborrheic keratosis; L21.8 Other seborrheic dermatitis; D22.5 Melanocytic nevi of trunk | CPT/HCPCS: 17000; 17110; 99214 ==

== ENCOUNTER 2024-04-21 16:05 | Outpatient (CLI) | payer MEDICARE, SELFPAY | END 2024-04-21 16:06 | disposition home or self-care (01) | LOC: SPT 16:06 | PROVIDERS: PCP Family Medicine; Visit Provider Podiatrist Foot & Ankle Surgery | DX: Z46.89 Encounter for fitting and adjustment of other specified devices (principal); M20.41 Other hammer toe(s) (acquired), right foot; M79.671 Pain in right foot; M19.079 Primary osteoarthritis, unspecified ankle and foot | CPT/HCPCS: L3030 ==

== ENCOUNTER 2024-05-07 07:19 | Day surgery (SDC) | payer MEDICARE, SELFPAY ==
[2024-05-07] VITALS (7 sets, daily range): BP systolic 110–136; BP diastolic 70–93; PULSE 63–75; RESP 16–18; TEMP 36.1–36.4; O2SAT 96–99; BMI 25.5
--- NOTE | 2024-05-07 | XR_ITS ---
WS: [id number] C-ARM RADIOGRAPHS RIGHT FOOT; 2 IMAGES HISTORY: YUE PICS COMPARISON: None available. Intraoperative imaging during fusion of the second toe. There is a screw extending along the interpha langeal joints. Phalanges are now in good position and alignment. XR/XR foot RT min 3V* [id number] IMPRESSION: Screw fixation across the second interphalangeal joints. Toe now in good alignm ent.
[2024-05-07] MEDS: sodium chloride 0.9% 1,000 ML 30 ML IV (08:17)
--- NOTE | 2024-05-07 08:20 | P.ANESASSM_ITS ---
Pre-Anesthetic Assessment Height/Weight: Height 1.93 m Weight 95.254 kg Temp Pulse Resp BP Pulse Ox O2 Del Method 97.5 F L 69 16 125/87 96 Room Air 05/07/24 07:40 05/07/24 07:40 05/07/24 07:40 05/07/24 07:40 05/07/24 07:40 05/07/24 07:40 Preop Diagnosis: Right second hammertoe Operation Date: 05/07/24 09:00 Proposed Procedures p Tendon Transfer Right Foot(Right) - Waldo Carrera DPM s Hammertoe Correction Right second(Right) - Waldo Carrera DPM Familial anesthetic complications: None Was Beta Fabienne taken within 24 hours: N/A Was Clonidine taken within 24 hours: N/A Last intake: Intake Last Liquid Date 05/06/24 Last Liquid Time 21:00 Last Solid Date 05/06/24 Last Solid Time 18:00 Social No alcohol and No tobacco Exam alert, oriented x 3, clear to auscultation bilaterally and regular rate & rhythm Airway Dentition: full Pulmonary hx PTX CV/HEM Atrial Fibrillation and Hypertension Metabolic Hyperlipidemia and Thyroid Disease [facility] Rheumatoid Arthritis Anesthetic Plan ASA status: 3 Anesthesia: MAC Risk of > 500 ml blood loss (7ml/kg in children): No Medications/Allergies Home Medications Medication Instructions Recorded Confirmed Last Taken Type mesalamine 1.2 gram tablet,delayed 4.8 g PO QAM 03/05/23 05/07/24 05/06/24 History release 09 ketoconazole 2 % shampoo 1 applic topical DIRECTED 07/31/23 05/07/24 1 Month Ago History ~04/07/24 aspirin 81 mg tablet,delayed 81 mg PO DAILY 10/21/23 05/06/24 05/06/24 History release (Adult Aspirin Regimen) prednisone 20 mg tablet 40 mg (2 x 20 mg) PO DAILY 2 weeks 10/21/23 05/06/24 05/06/24 Rx #30 tabs Sole supports #1 ea 03/11/24 03/11/24 Unknown Rx atorvastatin 10 mg tablet 10 mg PO BID 05/06/24 05/06/24 05/06/24 History levothyroxine 150 mcg tablet 150 mcg PO DAILY 05/06/24 05/06/24 05/06/24 History adalimumab 40 mg/0.4 mL 40 mg SUBCUT Q14D 05/07/24 05/07/24 04/25/24 History subcutaneous pen kit (Humira(CF) Pen) hydrochlorothiazide 12.5 mg tablet 12.5 mg PO DAILY PRN swelling 05/07/24 05/07/24 05/06/24 History metoprolol tartrate 50 mg tablet 50 mg PO BID 05/07/24 05/07/24 05/07/24 History Allergies Allergy/AdvReac Type Severity Reaction Status Date / Time morphine AdvReac ADR-Vomitin Verified 05/07/24 08:02 g Current Medications Generic Name Dose Route Start Last Admin Trade Name Freq PRN Reason Stop Dose Admin Sodium Chloride 1,000 mls @ 30 mls/hr 05/07/24 07:30 05/07/24 08:17 Sodium Chloride 0.9% IV 05/08/24 07:29 30 mls/hr .Q24H DARA Administration PFSH Anesthesia Medical History Atrial fibrillation Ulcerative colitis, acute Abnormal stress test Proctosigmoiditis Diverticulosis Surgical History History of left knee replacement 2022 History of knee replacement procedure of right knee 2010 H/O rotator cuff surgery History of nasal surgery H/O shoulder replacement H/O release of tendon H/O circumcision H/O colonoscopy (05/16/21) 02/10/2018 Family History Father Bleeding disorder Hypertension CAD (coronary artery disease) Mother Hypertension Denies family history of Anesthesia complication Social History Alcohol intake: never Substance/Drug Use: never Household members: spouse Marital status: Current occupational status: employed Data Anesthesia Cardiac Studies: Echocardiogram 01/15/23 Sestamibi Stress Test (Cardiology) 01/16 Cardiac Event Monitor 03/05/23
--- NOTE | 2024-05-07 09:01 | W.PM.OPSUD ---
Surgery/Procedure H&P Update DATE OF PROCEDURE: May 07, 2024 DATE H&P PERFORMED: 05/07/24 H&P UPDATE INFORMATION: I have reviewed H&P completed within last 30 days, I have examined patient prior to procedure, No changes to prior documentation and H&P is in [facility] EMR on date indicated PREOP DIAGNOSIS: Right second hammertoe PLANNED PROCEDURE: Operation Date: 05/07/24 09:00 Proposed Procedures p Tendon Transfer Right Foot(Right) - Waldo Carrera DPM s Hammertoe Correction Right second(Right) - Waldo Carrera DPM
--- NOTE | 2024-05-07 09:01 | PM.OPSURHP ---
Providers/Chief Complaint Primary Care Provider: Robinson Amaya MD Chief Complaint: M24.574, M76.671, M20.41 History of Present Illness 68 year old male patient presenting to clinic for surgical consult for right second hammertoe correction. Patient reports having some cardiac issue that he is seeing [facility] cardiology for in [place]. Patient states he has A-fib, hypertension and has experienced palpitations. He is locating discomfort at the base of right second metatarsal. Review of Systems General: Reports: 10 or more systems reviewed and unremarkable except in HPI and below Const: Denies: fever(s) or chills Eyes: Denies: change in vision Card: Denies: chest pain or palpitations Resp: Denies: dyspnea or productive cough GI: Denies: abdominal pain, nausea or vomiting : Denies: flank pain Musc: Reports: extremity pain, joint pain, joint stiffness, limited range of motion and deformity Skin/Breast: Reports: skin tenderness; Denies: rash Neuro: Reports: difficulty walking; Denies: numbness in extremities, sensory changes or frequent falls Psych: Denies: suicidal ideation Rodrigo/Lymph: Denies: easy bruising Medications/Allergies Home Medications Medication Instructions Recorded Confirmed Last Taken Type mesalamine 1.2 gram tablet,delayed 4.8 g PO QAM 03/05/23 05/07/24 05/06/24 History release 899 ketoconazole 2 % shampoo 1 applic topical DIRECTED 07/31/23 05/07/24 1 Month Ago History ~04/07/24 aspirin 81 mg tablet,delayed 81 mg PO DAILY 10/21/23 05/06/24 05/06/24 History release (Adult Aspirin Regimen) prednisone 20 mg tablet 40 mg (2 x 20 mg) PO DAILY 2 weeks 10/21/23 05/06/24 05/06/24 Rx #30 tabs Sole supports #1 ea 03/11/24 03/11/24 Unknown Rx atorvastatin 10 mg tablet 10 mg PO BID 05/06/24 05/06/24 05/06/24 History levothyroxine 150 mcg tablet 150 mcg PO DAILY 05/06/24 05/06/24 05/06/24 History adalimumab 40 mg/0.4 mL 40 mg SUBCUT Q14D 05/07/24 05/07/24 04/25/24 History subcutaneous pen kit (Humira(CF) Pen) hydrochlorothiazide 12.5 mg tablet 12.5 mg PO DAILY PRN swelling 05/07/24 05/07/24 05/06/24 History metoprolol tartrate 50 mg tablet 50 mg PO BID 05/07/24 05/07/24 05/07/24 History Allergies Allergy/AdvReac Type Severity Reaction Status Date / Time morphine AdvReac ADR-Vomitin Verified 05/07/24 08:02 g PFSH PFSH: Medical History Atrial fibrillation Ulcerative colitis, acute Abnormal stress test Proctosigmoiditis Diverticulosis Surgical History History of left knee replacement 2022 History of knee replacement procedure of right knee 2010 H/O rotator cuff surgery History of nasal surgery H/O shoulder replacement H/O release of tendon H/O circumcision H/O colonoscopy (05/16/21) 02/10/2018 Family History Father Bleeding disorder Hypertension CAD (coronary artery disease) Mother Hypertension Denies family history of Anesthesia complication Social History Alcohol intake: never Substance/Drug Use: never Household members: spouse Marital status: Current occupational status: employed Dietary Habits: Caffeine: Yes Vital Signs Vitals Signs: Last Vital Signs Temp 97.5 F L 05/07/24 07:40 Pulse 69 05/07/24 07:40 Resp 16 05/07/24 07:40 BP 125/87 05/07/24 07:40 Pulse Ox 96 05/07/24 07:40 O2 Del Method Room Air 05/07/24 07:40 Weight: Weight last 48 hrs Weight 210 lb Physical Exam Narrative: EXAM NARRATIVE: GENERAL: Patient is alert and oriented ?3 and in no acute distress. The following is a focused bilateral lower extremity exam. VASCULAR: Dorsalis pedis and posterior tibial arteries palpable +2. Capillary refill time less than 3 seconds to the distal hallux bilaterally. Calf is supple and nontender proximally and distally. No pedal edema appreciated. Pedal hair growth present. NEUROLOGICAL: Epicritic and protopathic sensations grossly intact to the lower extremities. +2 Achilles tendon reflex noted bilaterally. Negative Tinel sign upon percussion of lower extremity nerves. DERMATOLOGICAL: Lower extremity skin is well-hydrated, normal texture and turgor. There are no open sores or lesions noted to the lower extremities. No erythema or ecchymosis present to the bilateral legs and feet. MUSCULOSKELETAL: None reducible hammertoe right second toe. Reducible right third toe hammertoe deformity. Pain to palpation at right second toe at the proximal interphalangeal joint. No palpable mass along the course of the plantar fascia appreciated. No pain to palpation along the course of the bilateral Achilles tendon. No pain to palpation along the course posterior tibial tendon or peroneal tendons. No pain with [id number] compression of calcaneus, bilaterally. Muscle strength is 5/5 in all 3 cardinal planes pain-free without guarding to the foot and ankle, bilaterally. CARDIOVASCULAR: S1, S2, normal rate, normal rhythm. Dorsalis pedis and posterior tibial arteries palpable. LUNGS: Clear to auscltation, no use of acessory muscles, no crackles or wheezes. A&P Assessment and plan (1) Hammertoe of second toe of right foot: (2) Contracture, right foot: (3) Right foot pain: Plan Painful nonreducible hammertoe deformity right second toe. Patient requesting surgical invention. 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 Procedure would entail local anesthetic with monitored anesthesia care duration of surgery approximately 20 minutes will be outpatient. I reviewed at length with the patient, the risks, potential complications, benefits, alternatives, expectations, and typical outcomes associated with the surgery. The risks and potential complications were explained in detail, including but not limited to infection, wound dehiscence or soft tissue complications, bleeding and hematoma, chronic edema, neuritis or nerve damage producing numbness or chronic pain, CRPS, failure to relieve pain or worsening pain, thick / painful / unsightly scar, limited motion / stiffness, malposition, delayed union, malunion, or nonunion, fracture, reaction to implants, anesthetic complications, venous thromboembolism, and deformity recurrence. I discussed the notion of no regrets with the patient as it pertains to complications and outcomes. The patient seemed to understand the nature of the proposed care and required convalescence. They asked appropriate questions, answered to their satisfaction. They are aware no guarantees can be made as to a satisfactory outcome and they understand there may be other possible unforeseen complications or outcomes not listed here that will be treated accordingly if they arise. There were no written or implied guarantees given to the patient. They gave informed consent to proceed. Cardiology preoperative risk assessment performed [facility] by Dr. Bassem Sesay scanned into chart. Local MAC, gurney, supine, 20 minutes, mini C arm, [place], TPS Coding Level of Care Code Acute Code for [facility] Fwd Diagnoses Hammertoe of second toe of right foot M20.41 Contracture, right foot M24.574 Right foot pain M79.671
[2024-05-07] MEDS: ceFAZolin 2,000 mg SDV 2000 MG IVP (09:16)
--- NOTE | 2024-05-07 09:51 | ANES.PREANE2 ---
Pre-Anesthetic Assessment Height/Weight: Height 1.93 m Weight 95.254 kg Temp Pulse Resp BP Pulse Ox O2 Del Method 97.5 F L 69 16 125/87 96 Room Air 05/07/24 07:40 05/07/24 07:40 05/07/24 07:40 05/07/24 07:40 05/07/24 07:40 05/07/24 07:40 Preop Diagnosis: Right second hammertoe Operation Date: 05/07/24 09:00 Proposed Procedures p Tendon Transfer Right Foot(Right) - Waldo Carrera DPM s Hammertoe Correction Right second(Right) - Waldo Carrera DPM Familial anesthetic complications: none Was Beta Fabienne taken within 24 hours: N/A Was Clonidine taken within 24 hours: N/A Last intake: Intake Last Liquid Date 05/06/24 Last Liquid Time 21:00 Last Solid Date 05/06/24 Last Solid Time 18:00 Social No alcohol and No tobacco Exam alert, oriented x 3, clear to auscultation bilaterally and regular rate & rhythm Medications/Allergies Home Medications Medication Instructions Recorded Confirmed Last Taken Type mesalamine 1.2 gram tablet,delayed 4.8 g PO QAM 03/05/23 05/07/24 05/06/24 History release 899 ketoconazole 2 % shampoo 1 applic topical DIRECTED 07/31/23 05/07/24 1 Month Ago History ~04/07/24 aspirin 81 mg tablet,delayed 81 mg PO DAILY 10/21/23 05/06/24 05/06/24 History release (Adult Aspirin Regimen) prednisone 20 mg tablet 40 mg (2 x 20 mg) PO DAILY 2 weeks 10/21/23 05/06/24 05/06/24 Rx #30 tabs Sole supports #1 ea 03/11/24 03/11/24 Unknown Rx atorvastatin 10 mg tablet 10 mg PO BID 05/06/24 05/06/24 05/06/24 History levothyroxine 150 mcg tablet 150 mcg PO DAILY 05/06/24 05/06/24 05/06/24 History adalimumab 40 mg/0.4 mL 40 mg SUBCUT Q14D 05/07/24 05/07/24 04/25/24 History subcutaneous pen kit (Humira(CF) Pen) hydrochlorothiazide 12.5 mg tablet 12.5 mg PO DAILY PRN swelling 05/07/24 05/07/24 05/06/24 History hydrocodone 10 mg-acetaminophen 1 tab PO Q6H PRN pain 7 days #28 05/07/24 Unknown Rx 325 mg tablet tabs metoprolol tartrate 50 mg tablet 50 mg PO BID 05/07/24 05/07/24 05/07/24 History Allergies Allergy/AdvReac Type Severity Reaction Status Date / Time morphine AdvReac ADR-Vomitin Verified 05/07/24 08:02 g Current Medications Generic Name Dose Route Start Last Admin Trade Name Freq PRN Reason Stop Dose Admin Sodium Chloride 1,000 mls @ 30 mls/hr 05/07/24 07:30 05/07/24 08:17 Sodium Chloride 0.9% IV 05/08/24 07:29 30 mls/hr .Q24H DARA Administration PFSH Anesthesia Medical History Atrial fibrillation Ulcerative colitis, acute Abnormal stress test Proctosigmoiditis Diverticulosis Surgical History History of left knee replacement 2022 History of knee replacement procedure of right knee 2010 H/O rotator cuff surgery History of nasal surgery H/O shoulder replacement H/O release of tendon H/O circumcision H/O colonoscopy (05/16/21) 02/10/2018 Family History Father Bleeding disorder Hypertension CAD (coronary artery disease) Mother Hypertension Denies family history of Anesthesia complication Social History Alcohol intake: never Substance/Drug Use: never Household members: spouse Marital status: Current occupational status: employed Data Anesthesia Cardiac Studies: Echocardiogram 01/15/23 Sestamibi Stress Test (Cardiology) 01/16/23 Cardiac Event Monitor 03/05/23
[2024-05-07] MEDS: BUPivacaine 0.5% INJ 30 mL 20 ML INJECTION (10:08)
[2024-05-07] MEDS: BUPivacaine liposome 13.3 mg/mL SDV 20 mL 133 MG INFILTRATI (10:09)
--- NOTE | 2024-05-07 10:20 | P.OP_ITS ---
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 M24.574 Post-op diagnosis: Right foot pain M79.671 Hammertoe of second toe of right foot M20.41 Contracture right foot. M24.574 Procedure done: 1) tendon transfer right foot CPT code 15289 2) right second hammertoe correction. CPT code 53722 Implants: Cohoes 2.0 x 50 mm 4-0 Vicryl, 4 nylon Pathology: No pathology Surgeon: Waldo Carrera DPM Maintenance Instructor: NEVA Singh Estimated blood loss: 2 39 IV fluids: See intraoperative documentation Urine output: See intraoperative documentation Complications: no complications Brief History: Painful nonreducible hammertoe deformity right second toe. Patient requesting surgical invention. 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 Procedure would entail local anesthetic with monitored anesthesia care duration of surgery approximately 20 minutes will be outpatient. I reviewed at length with the patient, the risks, potential complications, benefits, alternatives, expectations, and typical outcomes associated with the surgery. The risks and potential complications were explained in detail, including but not limited to infection, wound dehiscence or soft tissue complications, bleeding and hematoma, chronic edema, neuritis or nerve damage producing numbness or chronic pain, CRPS, failure to relieve pain or worsening pain, thick / painful / unsightly scar, limited motion / stiffness, malposition, delayed union, malunion, or nonunion, fracture, reaction to implants, anesthetic complications, venous thromboembolism, and deformity recurrence. I discussed the notion of no regrets with the patient as it pertains to complications and outcomes. The patient seemed to understand the nature of the proposed care and required convalescence. They asked appropriate questions, answered to their satisfaction. They are aware no guarantees can be made as to a satisfactory outcome and they understand there may be other possible unforeseen complications or outcomes not listed here that will be treated accordingly if they arise. There were no written or implied guarantees given to the patient. They gave informed consent to proceed. Procedure: Under mild sedation the patient was brought to the operating room and remained on the gurney in supine position. A timeout was performed. Anesthesia was then administered by the anesthesia service. Local anesthesia injected by myself consisting of 20 cc of 0.5% Marcaine in a right second ray block fashion with an additional 20 cc of Exparel subcutaneously in a grid like fashion at the dorsal right foot per manufacture recommendation and technique. Well-padded pneumatic tourniquet was applied to the right ankle. The right lower extremity was scrubbed, prepped and draped utilizing normal aseptic technique. Right foot was then exanguinated with an Esmarch bandage and tourniquet inflated to 250 mmHg. Attention was directed to the right forefoot where deep tendon contracture was appreciated with sagittal plane dominant deformity of the right second toe as well as arthrosis of the right second proximal interphalangeal joint. A linear longitudinal incision made over the dorsal aspect of the right second toe through skin with a #15 blade with dissection carried down to extensor tendon which was transected at the level of the proximal interphalangeal joint and dissected proximally and temporary by a mosquito hemostat. The head and base of the right second proximal interphalangeal joint were resected with a oscillating saw pad about the field. Sharp dissection carried down to the flexor digitorum longus tendon which was transected at its most distal margin and split longitudinally and then transferred both medially laterally and hemisections fashion and transferred to the dorsal aspect of the right second toe which was then held in rectus and tendon was reapproximated utilizing 4-0 nylon helping to reduce the sagittal plane deformity at the right second toe and to help prevent cock-up toe deformity. The incision was irrigated with saline solution. Attention was directed at arthrodesis site of the proximal interphalangeal joint right second toe where subchondral drilling was performed at the proximal phalanx head and intermediate phalanx base. Next utilizing standard AO technique a Cohoes 2 mm headed partially-threaded screw was integrated and then retrograded to remain intramedullary within the distal, intermediate and proximal phalanx of the right second toe holding this rectus and allowing excellent compression at the proximal interphalangeal joint arthrodesis site excellent placement of hardware and rectus right second toe was appreciated both intraoperatively under direct visualization as well as with AP, oblique and lateral views noted to be excellent in all 3 planes with the second metatarsal plantar joint not being violated. Smooth range of motion appreciated at the right second metatarsal phalangeal joint. The incision was then flushed with copious amounts of sterile saline solution and the extensor tendon was reapproximated utilizing 4-0 Vicryl. Subcutaneous tissue closed with 4-0 Vicryl and skin with 4-0 nylon. The incision was then dressed with Adaptic, sterile 4 x 4's, Kerlix and Taiwo wrap followed by application of a cam boot. Tourniquet was deflated and a prompt hyperemic response was noted to the distal digits of the right foot. Patient tolerated the procedure and anesthesia well and was transferred to the PACU with vital signs stable and vascular status intact. Fo llowing a period of postoperative monitoring he will be discharged home was given at home care instructions and scheduled follow-up he is also given my cell phone number to contact me directly with any postoperative questions or concerns.
--- NOTE | 2024-05-07 10:20 | W.PM.BPON ---
Date of Procedure: 12/26/23 Surgeon: Waldo Carrera DPM [employer] Vice President(s): Samantha HOOKS Procedure(s) performed: Deep tendon transfer and second toe hammertoe correction all right foot. Findings of the procedure(s): None Estimated blood loss: 2 mL Specimen(s) removed: None Post-operative diagnosis: Right foot tendon contracture and right second hammertoe deformity
--- NOTE | 2024-05-07 11:25 | ANE.PACU2 ---
Inpatient post-anesthesia follow up: Airway intact: Yes Vital signs: Temperature 97.6 F Pulse Rate 75 Respiratory Rate 18 Blood Pressure 136/83 Pulse Oximetry 97 Oxygen Delivery Me thod Room Air Oxygen Flow Rate 3 Fraction of Inspir ed Oxygen Hydration adequate: Yes Nausea and vomiting: No Pain level: 1 Mental status: Baseline
== END 2024-05-07 11:23 | disposition home or self-care (01) ==
PROVIDERS: PCP Family Medicine; Visit Provider Podiatrist Foot & Ankle Surgery
PROC: (CPT 27691; principal; 2024-05-07 08:50)
PROC: (CPT 28285; 2024-05-07 08:50)
DX: M20.41 Other hammer toe(s) (acquired), right foot (principal); M24.574 Contracture, right foot; Z79.82 Long term (current) use of aspirin; I48.91 Unspecified atrial fibrillation
CPT/HCPCS: 27691; 28285; 73630; 76000; 97760; C1713; C9290; J0690; J2704; J3010; J3490; J7030; L4361

== ENCOUNTER → 2024-05-20 13:02 | Outpatient (BNVA) | payer MEDICARE, SELFPAY | PROVIDERS: PCP Family Medicine; Visit Provider Podiatrist Foot & Ankle Surgery | DX: M20.41 Other hammer toe(s) (acquired), right foot (principal); M79.671 Pain in right foot | CPT/HCPCS: 73630 ==

== ENCOUNTER 2024-05-20 14:16 | Outpatient (CLI) | payer MEDICARE, SELFPAY | END 2024-05-20 14:17 | disposition home or self-care (01) | LOC: SPT 14:17 | PROVIDERS: PCP Family Medicine; Visit Provider Podiatrist Foot & Ankle Surgery | DX: Z47.89 Encounter for other orthopedic aftercare (principal); Z98.890 Other specified postprocedural states | CPT/HCPCS: 97760; L3100 ==

== ENCOUNTER → 2024-06-17 07:43 | Outpatient (BNVA) | payer MEDICARE, SELFPAY | PROVIDERS: PCP Family Medicine; Visit Provider Podiatrist Foot & Ankle Surgery | DX: Z98.890 Other specified postprocedural states (principal); M20.41 Other hammer toe(s) (acquired), right foot; M79.671 Pain in right foot | CPT/HCPCS: 73630; 99024 ==

== ENCOUNTER → 2024-07-15 07:41 | Outpatient (BNVA) | payer MEDICARE, SELFPAY | PROVIDERS: PCP Family Medicine; Visit Provider Podiatrist Foot & Ankle Surgery | DX: Z98.890 Other specified postprocedural states (principal); M20.41 Other hammer toe(s) (acquired), right foot | CPT/HCPCS: 73630; 99024 ==

== ENCOUNTER → 2025-02-16 10:22 | Outpatient (BNVA) | payer MEDICARE, SELFPAY | PROVIDERS: PCP Family Medicine; Visit Provider Nurse Practitioner Family | DX: L21.8 Other seborrheic dermatitis (principal); L29.89 Other pruritus; D22.5 Melanocytic nevi of trunk; L82.1 Other seborrheic keratosis; L57.8 Other skin changes due to chronic exposure to nonionizing radiation; L57.0 Actinic keratosis | CPT/HCPCS: 17000; 99214 ==

== ENCOUNTER 2025-02-17 14:26 | Outpatient (CLI) | payer MEDICARE, SELFPAY ==
[2025-02-17 15:34] LABS: Basophils # 0.1 10^3/uL (0.0-0.1); Eosinophils # 0.2 10^3/uL (0.0-0.8); Eosinophils % 3.3 %; Hematocrit 32.9 % (37-53); Lymphocytes # 1.4 10^3/uL (0.8-4.8); Lymphocytes % 19.9 %; Mean Corpuscular HGB Conc 29.8 g/dL (30-55); Mean Corpuscular Hemoglobin 25.7 pg (27-33); Mean Corpuscular Volume 86.4 fl (82-101); Mean Platelet Volume 8.9 fL (7.4-10.4); Monocytes # 0.9 10^3/uL (0.2-0.9); Neutrophils # 4.42 10^3/uL (1.8-7.7); Neutrophils % 62.5 %; Nucleated Red Blood Cells % 0 %; Platelet Count 411 10^3/cmm (157-399); Red Blood Count 3.81 10^6/uL (3.85-5.65); Red Cell Distribution Width 14.5 % (12.1-15.1); White Blood Count 7.07 10^3/uL (3.29-11.43)
== END 2025-02-17 14:27 | disposition home or self-care (01) ==
PROVIDERS: PCP Family Medicine; Visit Provider Internal Medicine Gastroenterology
DX: K51.90 Ulcerative colitis, unspecified, without complications (principal)
CPT/HCPCS: 36415; 85025

== ENCOUNTER → 2025-06-21 12:16 | Outpatient (BNVA) | payer MEDICARE, SELFPAY | PROVIDERS: PCP Family Medicine; Visit Provider Family Medicine | DX: R60.9 Edema, unspecified (principal); R35.1 Nocturia; R53.1 Weakness; R31.9 Hematuria, unspecified | CPT/HCPCS: 80048; 81000; 83880; 84153; 84443; 85025; 87086 ==